=== PATIENT | female | born 1950 | race Caucasian/White ===

== ENCOUNTER → 2022-08-23 08:59 | Outpatient (BNVA) | payer MEDICARE, SELFPAY | PROVIDERS: PCP Family Medicine; Referring Provider Family Medicine; Visit Provider Student in an Organized Health Care Education/Training Program | DX: G56.01 Carpal tunnel syndrome, right upper limb (principal) | CPT/HCPCS: 99213 ==

== ENCOUNTER 2022-09-14 14:54 | Outpatient (REF) | payer MEDICARE, SELFPAY ==
[2022-09-14 16:16] LABS: Abs Immature Grans 0.03 10^3/uL (0.0-0.06); Absolute Basophil Count 0.05 10^3/uL (0.0-0.2); Absolute Eosinophil Count 0.24 10^3/uL (0.0-0.7); Absolute Lymphocyte Count 2.45 10^3/uL (1.2-3.4); Absolute Monocyte Count 0.74 10^3/uL (0.1-0.8); Absolute Neutrophil Count 6.34 10^3/uL (1.2-6.7); Basophils % 0.5; Eosinophils % 2.4; HCT 42.1 % (36.0-46.0); HGB 12.7 g/dL (11.2-15.7); Immature Grans % 0.3; Lymphocytes % 24.9; MCH 29.6 pg (27.0-33.0); MCHC 30.2 % (32.0-36.0); MCV 98 fL (80-95); MPV 10.6 fL (8.0-11.0); Monocytes % 7.5; Neutrophils % 64.4; Platelet Count 255 10^3/uL (130-400); RBC 4.29 10^6/uL (3.93-5.22); RDW 14.3 % (11.7-14.6); RDW-SD 51.1 fL; WBC 9.85 10^3/uL (4.4-10.8)
[2022-09-14 16:38] LABS: Hemoglobin A1C 5.4 % (<5.7)
[2022-09-14 16:42] LABS: ALT 36 U/L (14-59); AST 28 U/L (15-37); Albumin 3.6 g/dL (3.4-5.0); Alkaline Phosphatase 89 U/L (46-116); Anion Gap 13.2 mmol/L (3-11); BUN 23 mg/dL (7-18); Bilirubin, Total 0.3 mg/dL (0.2-1.0); CO2 25.8 mmol/L (21.0-32.0); CREATININE 1.4 mg/dL (0.55-1.02); Calcium 9.2 mg/dL (8.5-10.1); Chloride 106 mmol/L (98-107); Estimated GFR 40.22 (mL/min/1.73m2); Glucose 66 mg/dL (74-106); Potassium 4.5 mmol/L (3.5-5.1); Sodium 145 mmol/L (136-145)
== END 2022-09-14 14:55 | disposition home or self-care (01) ==
LOC: NCHCN 14:54
PROVIDERS: PCP Family Medicine; Visit Provider Registered Nurse
DX: F31.12 Bipolar disorder, current episode manic without psychotic features, moderate (principal); Z79.899 Other long term (current) drug therapy
CPT/HCPCS: 80053; 83036; 84443; 85025

== ENCOUNTER 2022-09-21 15:14 | Outpatient (REF) | payer MEDICARE, SELFPAY ==
[2022-09-21 18:51] LABS: ALT 36 U/L (14-59); AST 33 U/L (15-37); Albumin 3.8 g/dL (3.4-5.0); Alkaline Phosphatase 86 U/L (46-116); Anion Gap 7.1 mmol/L (3-11); BUN 22 mg/dL (7-18); Bilirubin, Total 0.4 mg/dL (0.2-1.0); CO2 29.9 mmol/L (21.0-32.0); CREATININE 1.3 mg/dL (0.55-1.02); Calcium 9.6 mg/dL (8.5-10.1); Chloride 104 mmol/L (98-107); Estimated GFR 43.69 (mL/min/1.73m2); Glucose 96 mg/dL (74-106); Potassium 4.1 mmol/L (3.5-5.1); Sodium 141 mmol/L (136-145); Total Protein 7.3 g/dL (6.4-8.2)
== END 2022-09-21 15:15 | disposition home or self-care (01) ==
LOC: NCHCN 15:14
PROVIDERS: PCP Family Medicine; Visit Provider Registered Nurse
DX: N18.31 Chronic kidney disease, stage 3a (principal)
CPT/HCPCS: 80053

== ENCOUNTER 2022-10-03 01:18 | Outpatient (CLI) | payer MEDICARE, SELFPAY ==
--- NOTE | 2022-10-03 17:45 | DI.MAMMO_ITS ---
Exam(s) MAMMO SCREENING EXAM: MAMMO SCREENING CLINICAL HISTORY: SCREENING MAMMO, [facility] Z00.00 TECHNIQUE: Bilateral full field digital CC and MLO mammographic images were obtained with 3D tomosyn thesis and utilizing computer aided detection (CAD). COMPARISON: Available for comparison. FINDINGS: Masses/Architectural Distortion: There are well-circumscribed bilateral breast nodules. No suspiciou s masses or areas of architectural distortion are seen. Microcalcifications: No suspicious pleomorphic-type are seen. Skin Thickening/Nipple Retraction: None. IMPRESSION: 1. No significant interval change with no specific features of malignancy noted. 2. Unless there is more urgent need, screening mammography is recommended, as per [employer] guidelines. BI-RADS Category 2 - Benign Findings Breast Density - Category B - Scattered areas of fibroglandular density Breast density category C or D implies that the patient has dense breast tissue. Dense breast tissue is very common and is not abnormal but dense breast tissue can make it harder to find cancer on a ma mmogram. Also, dense breast tissue may increase their breast cancer risk. This information about the result of the mammogram report was provided to the patient to raise their awareness. Use this report when you speak with the patient about their risks for breast cancer, which includes their family hist ory. At that time, you may recommend for more screening tests (Ultrasound or MRI) as they might be us eful based on their risk. A negative radiographic report should not delay biopsy if a dominant or clinically suspicious mass is present. Up to ten percent of cancers are not identified on mammography. A negative report may reinforce clinical impression. Adenosis and dense breasts may obscure an underlying neoplasm. False positive reports average 6 to 10%. Patient will receive a letter notifying them of these results.
== END 2022-10-03 01:38 ==
PROVIDERS: PCP Family Medicine; Visit Provider Family Medicine
DX: Z12.31 Encounter for screening mammogram for malignant neoplasm of breast (principal)
CPT/HCPCS: 77063; 77067

== ENCOUNTER 2022-10-19 17:47 | Outpatient (REF) | payer MEDICARE, SELFPAY ==
[2022-10-19 17:23] LABS: Lithium 0.6 mmol/l (0.6-1.2)
[2022-10-19 18:35] LABS: ALT 34 U/L (14-59); AST 30 U/L (15-37); Albumin 3.4 g/dL (3.4-5.0); Alkaline Phosphatase 97 U/L (46-116); Anion Gap 6.5 mmol/L (3-11); BUN 25 mg/dL (7-18); Bilirubin, Total 0.6 mg/dL (0.2-1.0); CO2 28.5 mmol/L (21.0-32.0); CREATININE 1.4 mg/dL (0.55-1.02); Calcium 9.2 mg/dL (8.5-10.1); Chloride 104 mmol/L (98-107); Estimated GFR 39.97 (mL/min/1.73m2); Glucose 137 mg/dL (74-106); Potassium 4.3 mmol/L (3.5-5.1); Sodium 139 mmol/L (136-145); Total Protein 7.7 g/dL (6.4-8.2)
== END 2022-10-19 17:48 | disposition home or self-care (01) ==
LOC: NCHCN 17:47
PROVIDERS: PCP Family Medicine; Visit Provider Registered Nurse
DX: F31.89 Other bipolar disorder (principal); N18.30 Chronic kidney disease, stage 3 unspecified; Z79.899 Other long term (current) drug therapy; Z51.81 Encounter for therapeutic drug level monitoring
CPT/HCPCS: 80053; 80178

== ENCOUNTER 2022-11-08 11:02 | Outpatient (REF) | payer MEDICARE, SELFPAY ==
[2022-11-09 11:36] LABS: ALT 23 U/L (14-59); AST 18 U/L (15-37); Albumin 3.5 g/dL (3.4-5.0); Alkaline Phosphatase 92 U/L (46-116); Anion Gap 8.3 mmol/L (3-11); BUN 15 mg/dL (7-18); CO2 30.7 mmol/L (21.0-32.0); CREATININE 1.3 mg/dL (0.55-1.02); Calcium 9.4 mg/dL (8.5-10.1); Chloride 104 mmol/L (98-107); Estimated GFR 43.69 (mL/min/1.73m2); Glucose 100 mg/dL (74-106); Sodium 143 mmol/L (136-145); Total Protein 7.3 g/dL (6.4-8.2)
[2022-11-09 19:49] LABS: Lithium (UVM) 0.9 mmol/L (See Note)
== END 2022-11-08 11:03 | disposition home or self-care (01) ==
LOC: NCHCN 11:02
PROVIDERS: PCP Family Medicine; Visit Provider Registered Nurse
DX: Z51.81 Encounter for therapeutic drug level monitoring (principal); Z79.899 Other long term (current) drug therapy; F31.9 Bipolar disorder, unspecified; N18.31 Chronic kidney disease, stage 3a
CPT/HCPCS: 80053; 80178

== ENCOUNTER 2022-11-23 12:27 | Inpatient (IN) | payer MEDICARE, SELFPAY ==
[2022-11-23] VITALS (8 sets, daily range): BP systolic 138–170; BP diastolic 57–89; PULSE 85–98; RESP 16–20; TEMP 36.3–37.1; O2SAT 95–97
[2022-11-23 13:00] LABS: Bilirubin Negative (Negative); Blood Negative (Negative); Clarity Sl Cloudy (Clear); Glucose Negative (Negative); Ketones Negative (Negative); Leukocyte Esterase Trace (Negative); Nitrite Negative (Negative); Specific Gravity 1.025 (1.005-1.025); Urobilinogen 0.2 mg/dL (Up to 0.2)
[2022-11-23 13:08] LABS: Epithelial Cells Many HPF (Negative)
[2022-11-23 13:09] LABS: Bacteria Few HPF (Negative); C & S Indicated? No/Sq. Contamination; Casts Negative LPF (Negative); Crystals Negative HPF (Negative); Mucus Negative (Negative)
--- NOTE | 2022-11-23 13:15 | RT.EKG_ITS ---
APPROVED REPORT Exam: Resting ECG Reason for Exam: tired Patient Location: E HR:86 bpm ECG Measurements Heart Rate 86 AXIS IA 204 P 42 QRSd 104 QRS -24 QT 434 T 74 QTc 520 Conclusion Sinus rhythm...normal P axis, V-rate 60- 99 Left ventricular hypertrophy...multiple voltage criteria Prolonged QT interval...QTc >500mS
[2022-11-23 13:51] LABS: Abs Immature Grans 0.07 10^3/uL (0.0-0.06); Absolute Basophil Count 0.04 10^3/uL (0.0-0.2); Absolute Eosinophil Count 0.29 10^3/uL (0.0-0.7); Absolute Lymphocyte Count 1.65 10^3/uL (1.2-3.4); Basophils % 0.3; Eosinophils % 2.1; HCT 40.9 % (36.0-46.0); HGB 13.5 g/dL (11.2-15.7); Immature Grans % 0.5; MCH 30.3 pg (27.0-33.0); MCV 92 fL (80-95); MPV 9.1 fL (8.0-11.0); Monocytes % 5.2; Neutrophils % 79.9; Platelet Count 284 10^3/uL (130-400); RBC 4.45 10^6/uL (3.93-5.22); RDW 12.8 % (11.7-14.6); RDW-SD 43.3 fL; WBC 13.74 10^3/uL (4.4-10.8)
[2022-11-23 13:53] LABS: Absolute Monocyte Count 0.71 10^3/uL (0.1-0.8); Absolute Neutrophil Count 10.98 10^3/uL (1.2-6.7)
[2022-11-23 14:12] LABS: Lithium 1.7 mmol/l (0.6-1.2)
[2022-11-23 14:20] LABS: ALT 28 U/L (14-59); AST 16 U/L (15-37); Albumin 3.5 g/dL (3.4-5.0); Alkaline Phosphatase 85 U/L (46-116); Anion Gap 5.2 mmol/L (3-11); BUN 18 mg/dL (7-18); Bilirubin, Total 0.6 mg/dL (0.2-1.0); CO2 26.8 mmol/L (21.0-32.0); CREATININE 1.3 mg/dL (0.55-1.02); Calcium 9.6 mg/dL (8.5-10.1); Chloride 104 mmol/L (98-107); Estimated GFR 43.69 (mL/min/1.73m2); Glucose 110 mg/dL (74-106); Potassium 3.8 mmol/L (3.5-5.1); Sodium 136 mmol/L (136-145); Total Protein 7.7 g/dL (6.4-8.2)
--- NOTE | 2022-11-23 14:43 | NUR.NOTE ---
Nursing Note: Pt not suicidal/homicidal, no safety room required d/t needs monitored room for medical reasons, monitored visually from nurses station, not 1:1 per provider, no CPSO ordered. Pt calm and appropriate, will cont. to monitor.
--- NOTE | 2022-11-23 14:46 | NUR.NOTE ---
Nursing Note: Care assumed @ 1445, report recieved from Massimo Birch RN and Betsy Santillan RN Charge Nurse. Pt is not 1:1, CPSO, safety room required per report recieved.
[2022-11-23] MEDS: Normal Saline 1,000 ML 1000 ML IV (14:50)
--- NOTE | 2022-11-23 15:10 | ED.GENADUL_ITS ---
Discharge Plan Disposition Patient Disposition: Home Discharge Details Clinical Impression: [place] toxicity, CKD (chronic kidney disease), stage III, History of depression Primary Care Provider: Selwyn Damon ED Provider: Fiona Gtz Discharge Data Discharge Date/Time-TO BE ENTERED AT DEPARTURE: 11/23/22 16:58 Medical Decision Making 72-year-old female is fully alert and oriented, mild hypertension but otherwise stable Secondary to chronic kidney disease and recent increase in lithium, lithium level was checked, found to be 1.7, concern for lithium toxicity, patient adamantly denies any attempts to harm self or overdose on medications Aside from being quite fatigued patient has no other symptoms consistent with lithium toxicity, case discussed with poison control, recommendation for 1 to 2 L of NS, telemetry monitoring, repeat BMP and lithium level every 4 hours and to ensure adequate intake and output Patient also is quite depressed, likely need placement for depression and psychiatric mood stabilization intervention QTc was 520 on EKG, will place on telemetry monitoring Urinalysis not show evidence of acute abnormality Case discussed with Dr. Lara Stanford, admitting hospitalist who accepts patient to her care Full CODE STATUS for admission purposes Fully alert and oriented and stable throughout this encounter Medical Records Medical records reviewed: Yes I reviewed the patient's medical records. Lab Data Lab results reviewed: Yes I reviewed the patient's lab results. HPI General Date/Time Provider Initiated Documentation: 11/23/22 13:10 . HPI Narrative: This 72-year-old female presents with report of feeling sluggish with worsening depression, sent to the emergency department for evaluation. Denies any chest pain or shortness of breath. States she feels very tired. Denies any nausea, vomiting, or diarrhea today but did have 1 episode of diarrhea last week. Denies fever or chills. Denies any dizziness, speech, or sensation change. Denies any attempts to harm self. Took her lithium dose last evening, but has not taken her medications today. Sent to the emergency department for likely placement secondary to difficulty controlling depression and bipolar in the presence of multiple medical comorbidities Related Data Home Medications Medication Instructions Recorded Confirmed carvedilol 3.125 mg tablet 3.125 mg PO BID 04/24/22 11/23/22 losartan 50 mg tablet 50 mg PO DAILY 04/24/22 11/23/22 mecobalamin (vitamin B12) 1,000 1,000 mcg PO DAILY 04/24/22 11/23/22 mcg chewable tablet (B12 Active) acetaminophen 500 mg tablet 500 mg PO DAILY 06/06/22 11/23/22 (Tylenol Extra Strength) lithium carbonate 300 mg capsule 900 mg PO QHS 11/23/22 11/23/22 lorazepam 0.5 mg tablet mg 11/24/22 11/24/22 ziprasidone HCl 60 mg capsule 60 mg PO BID 11/24/22 11/24/22 Allergies Allergy/AdvReac Type Severity Reaction Status Date / Time No Known Allergies Allergy Verified 08/23/22 09:01 General Stated Complaint: PsychEval DEISY: 2 PFSH All Active Problems (Updated 11/23/22 @ 15:29 by BELINDA Gonzalez) Hypertension (Chronic) History of depression (Acute) CKD (chronic kidney disease), stage III (Acute) [place] toxicity (Acute) Right carpal tunnel syndrome (Acute) Medical History Arthritis Chronic knee pain CKD (chronic kidney disease), stage III History of depression History of uterine cancer Hypertension Peripheral neuropathy Right wrist pain Social History Smoking/Tobacco Use Status: Never Smoking risk assessment performed?: Yes Drug use: Never Substance use type: does not use Do you feel safe at home: Yes Do you feel safe in your relationship?: Yes Exam Const General: cooperative, comfortable and no acute distress HENMT Other: moist mucous membranes Eyes Pupils: PERRL Resp Effort & Inspection: normal respiratory effort Auscultation: clear to auscultation bilaterally Cardio Rate: regular rate Rhythm: regular rhythm GI Inspection: normal to inspection Skin General skin exam: no rashes or lesions noted Neuro General: patient alert and patient oriented x3 Speech: speech normal Gait: normal gait Motor: no pronator drift Sensory Exam: no sensory deficits noted Psych Appearance: well kempt Affect: other (flat) Attitude: cooperative Thought Process: normal Thought Content: normal and suicidality Course Vital Signs Vital signs: Vital Signs Temperature 36.6 C 11/23/22 12:56 Pulse 88 11/23/22 12:56 Respiratory Rate 16 11/23/22 12:56 Blood Pressure 168/89 H 11/23/22 12:56 Temperature 36.6 C 11/23/22 12:56 Temperature Source Oral 11/23/22 12:56 Pulse 88 11/23/22 12:56 Respiratory Rate 16 11/23/22 12:56 Blood Pressure 168/89 H 11/23/22 12:56 Blood Pressure Position Sitting 11/23/22 12:56 Oxygen Delivery Method Room Air 11/23/22 12:56 Oxygen Flow Rate 0 11/23/22 12:56 Lab/Test Results Lab/Test Results: Laboratory Tests Range/Units 11/23/22 11/23/22 11/23/22 12:50 13:40 13:40 WBC (4.4-10.8) 10^3/uL 13.74 H RBC (3.93-5.22) 10^6/uL 4.45 Hgb (11.2-15.7) g/dL 13.5 Hct (36.0-46.0) % 40.9 MCV (80-95) fL 92 MCH (27.0-33.0) pg 30.3 MCHC (32.0-36.0) % 33.0 RDW (11.7-14.6) % 12.8 Plt Count (130-400) 10^3/uL 284 MPV (8.0-11.0) fL 9.1 Immature Gran % 0.5 Neutrophils % 79.9 Lymphocytes % 12.0 Monocytes % 5.2 Eosinophils % 2.1 Basophils % 0.3 Nucleated RBC % (0.0-0.3) % 0.0 Absolute Neutrophils (1.2-6.7) 10^3/uL 10.98 H Absolute Lymphocytes (1.2-3.4) 10^3/uL 1.65 Absolute Monocytes (0.1-0.8) 10^3/uL 0.71 Absolute Eosinophils (0.0-0.7) 10^3/uL 0.29 Absolute Basophils (0.0-0.2) 10^3/uL 0.04 Sodium (136-145) mmol/L 136 Potassium (3.5-5.1) mmol/L 3.8 Chloride (98-107) mmol/L 104 Carbon Dioxide (21.0-32.0) mmol/L 26.8 Anion Gap (3-11) mmol/L 5.2 BUN (7-18) mg/dL 18 Creatinine (0.55-1.02) mg/dL 1.3 H Est GFR (CKD-EPI 2020) (mL/min/1.73m2) 43.69 Glucose (74-106) mg/dL 110 H Calcium (8.5-10.1) mg/dL 9.6 Magnesium (1.8-2.4) mg/dL 2.0 Total Bilirubin (0.2-1.0) mg/dL 0.6 AST (15-37) U/L 16 ALT (14-59) U/L 28 Alkaline Phosphatase (46-116) U/L 85 Total Protein (6.4-8.2) g/dL 7.7 Albumin (3.4-5.0) g/dL 3.5 TSH (0.36-3.74) uIU/mL 2.60 Urine Color (Yellow) Yellow Urine Clarity (Clear) Sl Cloudy Urine pH (5-8) 6.0 Ur Specific [place] (1.005-1.025) 1.025 Urine Protein (Negative) mg/dL 30 H Urine Ketones (Negative) mg/dL Negative Urine Blood (Negative) Negative Urine Nitrite (Negative) Negative Urine Bilirubin (Negative) Negative Urine Urobilinogen (Up to 0.2) mg/dL 0.2 Ur Leukocyte Esterase (Negative) Trace H Urine RBC (0-2) HPF 3-5 H Urine WBC (0-5) HPF 5-10 Ur Epithelial Cells (Negative) HPF Many Urine Crystals (Negative) HPF Negative Urine Bacteria (Negative) HPF Few Urine Casts (Negative) LPF Negative Urine Mucus (Negative) Negative Ur Culture Indicated? No/Sq. Contamination Urine Glucose (Negative) mg/dL Negative [place] (0.6-1.2) mmol/l Range/Units 11/23/22 11/23/22 13:40 13:40 WBC (4.4-10.8) 10^3/uL RBC (3.93-5.22) 10^6/uL Hgb (11.2-15.7) g/dL Hct (36.0-46.0) % MCV (80-95) fL MCH (27.0-33.0) pg MCHC (32.0-36.0) % RDW (11.7-14.6) % Plt Count (130-400) 10^3/uL MPV (8.0-11.0) fL Immature Gran % Neutrophils % Lymphocytes % Monocytes % Eosinophils % Basophils % Nucleated RBC % (0.0-0.3) % Absolute Neutrophils (1.2-6.7) 10^3/uL Absolute Lymphocytes (1.2-3.4) 10^3/uL Absolute Monocytes (0.1-0.8) 10^3/uL Absolute Eosinophils (0.0-0.7) 10^3/uL Absolute Basophils (0.0-0.2) 10^3/uL Sodium (136-145) mmol/L Potassium (3.5-5.1) mmol/L Chloride (98-107) mmol/L Carbon Dioxide (21.0-32.0) mmol/L Anion Gap (3-11) mmol/L BUN (7-18) mg/dL Creatinine (0.55-1.02) mg/dL Est GFR (CKD-EPI 2020) (mL/min/1.73m2) Glucose (74-106) mg/dL Calcium (8.5-10.1) mg/dL Magnesium (1.8-2.4) mg/dL Cancelled Total Bilirubin (0.2-1.0) mg/dL AST (15-37) U/L ALT (14-59) U/L Alkaline Phosphatase (46-116) U/L Total Protein (6.4-8.2) g/dL Albumin (3.4-5.0) g/dL TSH (0.36-3.74) uIU/mL Urine Color (Yellow) Urine Clarity (Clear) Urine pH (5-8) Ur Specific [place] (1.005-1.025) Urine Protein (Negative) mg/dL Urine Ketones (Negative) mg/dL Urine Blood (Negative) Urine Nitrite (Negative) Urine Bilirubin (Negative) Urine Urobilinogen (Up to 0.2) mg/dL Ur Leukocyte Esterase (Negative) Urine RBC (0-2) HPF Urine WBC (0-5) HPF Ur Epithelial Cells (Negative) HPF Urine Crystals (Negative) HPF Urine Bacteria (Negative) HPF Urine Casts (Negative) LPF Urine Mucus (Negative) Ur Culture Indicated? Urine Glucose (Negative) mg/dL [place] (0.6-1.2) mmol/l 1.7 H
--- NOTE | 2022-11-23 15:12 | W.PM.HP.N ---
Date of service: 11/23/22 Time of Service: 15:12 Assessment and Plan Assessment and plan (1) [place] toxicity: Status: Acute Assessment and plan: admit to med/surg aggressive fluid hydration, IV at NS 250 cc/hr poison control called and advised recheck kidney, electrolytes and lithium in 4 hours, continue close monitoring until normalized, next draw 1800. hold lithium (2) History of depression: Status: Acute Assessment and plan: unstable, continue antidepressants (med rec consultation with [facility] as med list appears with errors based on refill history). lithium on hold pending admission to [facility] for inpatient med stabilization. mental health will be consulted after she is medically stabilized. Case management will also be following for discharge planning. (3) CKD (chronic kidney disease), stage III: Status: Acute Assessment and plan: baseline creatinine 1.3, stable now but will need close monitoring and is receiving aggressive IV hydration monitor I&O closely, daily weights avoid nephrotoxic drugs, losartan on hold for now. (4) Hypertension: Status: Chronic Assessment and plan: monitor blood pressure losartan on hold while lithium clears in setting of baseline CKD. discussed with Dr Stanford History of Present Illness History of Present Illness Chief Complaint: lithum toxicity Narrative: This is a 72-year-old female patient with a past medical history of depression has been having outpatient medication adjustments for major depression. [place] doses have been titrated and today she was found to be toxic with a lithium level of 1.7. She was given a liter of lactated Ringer's in the emergency department Poison control was notified and recommended observation with repeat of kidney function electrolytes and lithium level in 4 hours. Medically she states she has been stable she has had no fever no chills no chest pain shortness of breath abdominal pain states she has been eating and drinking states she still continues to drive and is independent with her care. She reports that she lives with her sister here locally she has 2 children that live in the [place] area. Outpatient team has been trying to stabilize her psychiatrically and referrals have been placed to [facility] in [facility] and acceptance has been pending bed availability. Review of Systems All systems reviewed & are unremarkable except as noted in HPI and below PFSH All Active Problems (Updated 11/23/22 @ 15:29 by BELINDA Gonzalez) Hypertension (Chronic) History of depression (Acute) CKD (chronic kidney disease), stage III (Acute) [place] toxicity (Acute) Right carpal tunnel syndrome (Acute) Medical History Arthritis Chronic knee pain CKD (chronic kidney disease), stage III History of depression History of uterine cancer Hypertension Peripheral neuropathy Right wrist pain Social History Smoking/Tobacco Use Status: Never Smoking risk assessment performed?: Yes Drug use: Never Substance use type: does not use Do you feel safe at home: Yes Do you feel safe in your relationship?: Yes Meds Allergies and Home Medications Allergies Allergy/AdvReac Type Severity Reaction Status Date / Time No Known Allergies Allergy Verified 08/23/22 09:01 Home Medications Medication Instructions Recorded Confirmed Type carvedilol 3.125 mg tablet 3.125 mg PO BID 04/24/22 11/23/22 History cholecalciferol (vitamin D3) 25 5,000 unit PO DAILY 04/24/22 11/23/22 History mcg (1,000 unit) capsule losartan 50 mg tablet 50 mg PO DAILY 04/24/22 11/23/22 History mecobalamin (vitamin B12) 1,000 1,000 mcg PO DAILY 04/24/22 11/23/22 History mcg chewable tablet (B12 Active) acetaminophen 500 mg tablet 500 - 1,000 mg PO DAILY 06/06/22 08/23/22 History (Tylenol Extra Strength) aripiprazole 10 mg tablet 10 mg PO DAILY 06/06/22 08/23/22 History sertraline 100 mg tablet 100 mg PO DAILY 06/06/22 08/23/22 History lurasidone 20 mg tablet ([place]) 40 mg PO DAILY 08/23/22 08/23/22 History calcium 500 mg tablet 1,250 mg PO DAILY 11/23/22 11/23/22 History lithium carbonate 300 mg capsule 300 mg PO QHS 11/23/22 11/23/22 History lorazepam 0.5 mg tablet 0.5 mg PO DAILY 11/23/22 11/23/22 History ziprasidone HCl 60 mg capsule 60 mg PO BID 11/23/22 11/23/22 History Exam Const General: cooperative, comfortable and no acute distress Nutritional Appearance: average body habitus Orientation: alert, awake and oriented x3 HENMT Head: normal to inspection, normocephalic and atraumatic Mouth: oral mucosae normal Neck Neck: normal visual inspection and full ROM Chest Chest: normal inspection of the chest Resp Effort & Inspection: normal respiratory effort Auscultation: clear to auscultation bilaterally Cardio Rate: regular rate Rhythm: regular rhythm GI Inspection: normal to inspection Palpation: soft Skin General skin exam: no rashes or lesions noted Neuro General: patient alert, patient awake and patient oriented x3 Cognition: normal cognition Speech: speech normal Motor: muscle tone normal throughout Sensory Exam: no sensory deficits noted Extrem General: normal to inspection and full ROM Results Labs 11/23/22 13:40 11/23/22 13:40 Labs: Laboratory Results - last 24 hr 11/23/22 11/23/22 11/23/22 12:50 13:40 13:40 WBC 13.74 H RBC 4.45 Hgb 13.5 Hct 40.9 MCV 92 MCH 30.3 MCHC 33.0 RDW 12.8 Plt Count 284 MPV 9.1 Immature Gran % 0.5 Neutrophils % 79.9 Lymphocytes % 12.0 Monocytes % 5.2 Eosinophils % 2.1 Basophils % 0.3 Nucleated RBC % 0.0 Absolute Neutrophils 10.98 H Absolute Lymphocytes 1.65 Absolute Monocytes 0.71 Absolute Eosinophils 0.29 Absolute Basophils 0.04 Sodium 136 Potassium 3.8 Chloride 104 Carbon Dioxide 26.8 Anion Gap 5.2 BUN 18 Creatinine 1.3 H Est GFR (CKD-EPI 2020) 43.69 Glucose 110 H Calcium 9.6 Magnesium 2.0 Total Bilirubin 0.6 AST 16 ALT 28 Alkaline Phosphatase 85 Total Protein 7.7 Albumin 3.5 TSH 2.60 Urine Color Yellow Urine Clarity Sl Cloudy Urine pH 6.0 Ur Specific [place] 1.025 Urine Protein 30 H Urine Ketones Negative Urine Blood Negative Urine Nitrite Negative Urine Bilirubin Negative Urine Urobilinogen 0.2 Ur Leukocyte Esterase Trace H Urine RBC 3-5 H Urine WBC 5-10 Ur Epithelial Cells Many Urine Crystals Negative Urine Bacteria Few Urine Casts Negative Urine Mucus Negative Ur Culture Indicated? No/Sq. Contamination Urine Glucose Negative [place] 11/23/22 11/23/22 13:40 13:40 WBC RBC Hgb Hct MCV MCH MCHC RDW Plt Count MPV Immature Gran % Neutrophils % Lymphocytes % Monocytes % Eosinophils % Basophils % Nucleated RBC % Absolute Neutrophils Absolute Lymphocytes Absolute Monocytes Absolute Eosinophils Absolute Basophils Sodium Potassium Chloride Carbon Dioxide Anion Gap BUN Creatinine Est GFR (CKD-EPI 2020) Glucose Calcium Magnesium Cancelled Total Bilirubin AST ALT Alkaline Phosphatase Total Protein Albumin TSH Urine Color Urine Clarity Urine pH Ur Specific [place] Urine Protein Urine Ketones Urine Blood Urine Nitrite Urine Bilirubin Urine Urobilinogen Ur Leukocyte Esterase Urine RBC Urine WBC Ur Epithelial Cells Urine Crystals Urine Bacteria Urine Casts Urine Mucus Ur Culture Indicated? Urine Glucose [place] 1.7 H Last Vital Signs Temp 36.6 C 11/23/22 12:56 Pulse 88 11/23/22 12:56 Resp 16 11/23/22 12:56 BP 168/89 H 11/23/22 12:56 Time Spent Time spent with Patient: 40-54 minutes Time was spent: preparing to see the patient(eg.review tests), obtaining and/or reviewing separately otained hiistory, ordering medications,tests, procedures and indepentently interpreting results
[2022-11-23 16:06] LABS: Source Nasal/Nares
[2022-11-23 16:48] LABS: COVID-19 PCR Negative (Negative)
[2022-11-23] MEDS: Normal Saline 1,000 ML 250 ML IV ×2 (17:30→21:40)
[2022-11-23] MEDS: Normal Saline Flush 10 ML SYR ×2 (17:30→21:45)
[2022-11-23 18:22] LABS: Anion Gap 4.7 mmol/L (3-11); BUN 18 mg/dL (7-18); CO2 26.3 mmol/L (21.0-32.0); CREATININE 1.4 mg/dL (0.55-1.02); Calcium 8.8 mg/dL (8.5-10.1); Chloride 108 mmol/L (98-107); Estimated GFR 39.97 (mL/min/1.73m2); Glucose 123 mg/dL (74-106); Potassium 3.3 mmol/L (3.5-5.1); Sodium 139 mmol/L (136-145)
[2022-11-23 18:33] LABS: Lithium 1.4 mmol/l (0.6-1.2)
--- NOTE | 2022-11-23 18:49 | TELEP.MEDR_ITS ---
Date of service: 11/23/22 Time of [facility] 18:[facility] Allergies Allergies: No Known Allergies Allergy (Verified 08/23/22 09:01) Interview Person Interviewed: * Patient Quality Quality of Interview/Accuracy of Medication List: Excellent Sources Sources used to compile medication list: [place] Medication List and SureScripts Changes made to Home Medication List: ADDITIONS: * none DELETIONS: * Calcium 1,250 mg daily * Cholecalciferol 5,000 units daily * Lorazepam 0.5 mg daily * Lurasidone 40 mg daily * Sertraline 100 mg daily * Ziprasidone 60 mg BID CHANGES: * Acetaminophen 500 mg daily * [place] 900 mg nightly Additional Notes Additional Notes: * Patient states her lithium was recently increased from 600 mg nightly to 900 mg nightly last week. * Patient stats compliance with medications, last doses of home medications were this morning (11/23/22) and last night (11/22/22) for evening medications. Recommended Changes Recommended Changes(reason for recommendation): * none Attestation: The home medication list is now updated to the best of my knowledge and is ready to be reconciled by the provider. Please contact the [facility] Medication Reconciliation Pharmacist at for any questions.
--- NOTE | 2022-11-23 18:49 | TELEP.MEDREC ---
Date of service: 11/23/22 Time [facility]: 18:[facility] Allergies Allergies: No Known Allergies Allergy (Verified 08/23/22 09:01) Interview Person Interviewed: Patient Quality Quality of Interview/Accuracy of Medication List: Excellent Sources Sources used to compile medication list: [place] Medication List and SureScripts Changes made to Home Medication List: ADDITIONS: none DELETIONS: Calcium 1,250 mg daily Cholecalciferol 5,000 units daily Lorazepam 0.5 mg daily Lurasidone 40 mg daily Sertraline 100 mg daily Ziprasidone 60 mg BID CHANGES: Acetaminophen 500 mg daily [place] 900 mg nightly Additional Notes Additional Notes: Patient states her lithium was recently increased from 600 mg nightly to 900 mg nightly last week. Patient stats compliance with medications, last doses of home medications were this morning (11/23/22) and last night (11/22/22) for evening medications. Recommended Changes Recommended Changes(reason for recommendation): none Attestation: The home medication list is now updated to the best of my knowledge and is ready to be reconciled by the provider. [facility] at for any questions.
--- NOTE | 2022-11-23 20:15 | RT.EKG_ITS ---
APPROVED REPORT Exam: Resting ECG Reason for Exam: [place] toxicity/prolonged QT inverval Patient Location: I HR:84 bpm ECG Measurements Heart Rate 84 AXIS DC 230 P 52 QRSd 110 QRS -14 QT 411 T 72 QTc 486 Conclusion Sinus rhythm...normal P axis, V-rate 50- 99 Prolonged DC interval...DC >220, V-rate 50- 90 Borderline T abnormalities, anterior leads...T flat or neg, V2-V4 Borderline prolonged QT interval...QTc >485mS
[2022-11-23] MEDS: Potassium Chloride 20 MEQ TABCR 40 MEQ PO (20:41)
[2022-11-23] MEDS: Carvedilol 3.125 MG TAB PO (20:42)
[2022-11-23] MEDS: Ziprasidone 20 MG CAP 60 MG PO (21:36)
[2022-11-23 22:25] LABS: Lithium 1.3 mmol/l (0.6-1.2)
[2022-11-24] VITALS (8 sets, daily range): BP systolic 144–160; BP diastolic 72–82; PULSE 71–82; RESP 14–18; TEMP 36–36.8; O2SAT 95–97
--- NOTE | 2022-11-24 | RT.EKG_ITS ---
APPROVED REPORT Exam: Resting ECG Reason for Exam: [place] toxicity/prolonged QT interval Patient Location: I HR:80 bpm ECG Measurements Heart Rate 80 AXIS [place] 214 P 48 QRSd 106 QRS -5 QT 453 T 66 QTc 523 Conclusion Sinus rhythm...normal P axis, V-rate 50- 99 Borderline prolonged NH interval...NH >212, V-rate 50- 90 Borderline T wave abnormalities...T/QRS ratio < 1/20 or flat T Prolonged QT interval...QTc >500mS
[2022-11-24] MEDS: Acetaminophen 325 MG TAB 650 MG PO ×2 (00:33→08:54)
[2022-11-24] MEDS: Normal Saline 1,000 ML 250 ML IV ×2 (02:12→06:47)
[2022-11-24] MEDS: LORazepam 0.5 MG TAB PO ×2 (02:12→21:28)
[2022-11-24 02:14] LABS: Lithium 1.2 mmol/l (0.6-1.2)
[2022-11-24 07:02] LABS: Abs Immature Grans 0.06 10^3/uL (0.0-0.06); Absolute Lymphocyte Count 2.78 10^3/uL (1.2-3.4); Absolute Monocyte Count 0.73 10^3/uL (0.1-0.8); Absolute Neutrophil Count 8.62 10^3/uL (1.2-6.7); Basophils % 0.2; Eosinophils % 2.9; HCT 38.5 % (36.0-46.0); HGB 12.4 g/dL (11.2-15.7); Immature Grans % 0.5; Lymphocytes % 22.1; MCH 30.1 pg (27.0-33.0); MCHC 32.2 % (32.0-36.0); MCV 93 fL (80-95); MPV 10.1 fL (8.0-11.0); Monocytes % 5.8; Neutrophils % 68.5; Platelet Count 250 10^3/uL (130-400); RBC 4.12 10^6/uL (3.93-5.22); RDW 12.9 % (11.7-14.6); RDW-SD 44.6 fL; WBC 12.58 10^3/uL (4.4-10.8)
[2022-11-24 07:03] LABS: Absolute Basophil Count 0.03 10^3/uL (0.0-0.2); Absolute Eosinophil Count 0.36 10^3/uL (0.0-0.7)
[2022-11-24 07:20] LABS: Lithium 1.1 mmol/l (0.6-1.2)
[2022-11-24 07:23] LABS: Anion Gap 6.8 mmol/L (3-11); BUN 14 mg/dL (7-18); CO2 21.2 mmol/L (21.0-32.0); CREATININE 1.1 mg/dL (0.55-1.02); Calcium 8.2 mg/dL (8.5-10.1); Chloride 114 mmol/L (98-107); Estimated GFR 53.39 (mL/min/1.73m2); Glucose 90 mg/dL (74-106); Potassium 3.9 mmol/L (3.5-5.1); Sodium 142 mmol/L (136-145)
--- NOTE | 2022-11-24 08:00 | RT.EKG_ITS ---
APPROVED REPORT Exam: Resting ECG Reason for Exam: lithium toxicity Patient Location: I HR:72 bpm ECG Measurements Heart Rate 72 AXIS NM 202 P 41 QRSd 106 QRS 6 QT 462 T 82 QTc 506 Conclusion Sinus rhythm...normal P axis, V-rate 50- 99 Borderline T abnormalities, anterior leads...T flat or neg, V2-V4 Prolonged QT interval...QTc >500mS
[2022-11-24] MEDS: Ziprasidone 20 MG CAP 60 MG PO ×2 (08:36→20:06)
[2022-11-24] MEDS: Calcium Carbonate 1.25 GM TAB PO (08:36)
[2022-11-24] MEDS: Cyanocobalamin 500 MCG TAB 1000 MCG PO (08:36)
[2022-11-24] MEDS: Carvedilol 3.125 MG TAB PO ×2 (08:36→20:06)
[2022-11-24] MEDS: Cholecalciferol (Vitamin D3) 1,000 UNIT TAB 5000 UNITS PO (08:37)
[2022-11-24 11:10] LABS: Albumin 2.9 g/dL (3.4-5.0)
[2022-11-24 11:19] LABS: Lab Add On Test DONE
[2022-11-24] MEDS: Normal Saline 1,000 ML 150 ML IV (12:37)
--- NOTE | 2022-11-24 13:30 | PGE_ITS ---
Date of Service Date of service: 11/24/22 Time of Service: 13:30 Assessment and Plan Assessment and plan (1) [place] toxicity: Status: Resolved Assessment and plan: Non toxic; continue to hold [place] Pending placement at psychiatric facility for med mgt (2) History of depression: Status: Acute Assessment and plan: pending admission to [facility] for inpatient med stabilization. [facility] health was consulted [facility] Case management will also be following for discharge planning. (3) CKD (chronic kidney disease), stage III: Status: Acute Assessment and plan: Creatinine 0.9 avoid nephrotoxic drugs, losartan on hold for now. (4) Hypertension: Status: Chronic Assessment and plan: monitor blood pressure losartan on hold while lithium clears in setting of baseline CKD. discussed with Dr Stanford (5) DVT prophylaxis: Status: Acute Assessment and plan: Enoxaparin (6) Discharge planning issues: Status: Acute Assessment and plan: Plan to transfer to mental health facility for med mgt Discussed with Dr Stanford Subjective Subjective Patient reports: no new complaints, tolerating liquids well, tolerating a regular diet, voiding w/o difficulty, bowel movement and afebrile; denies flatus, diarrhea, nausea or shortness of breath Interval history since last seen: No complaints. Roopa states she would like to go somewhere to get her medication regulated for bipolar disease. Exam Const General: cooperative, comfortable and no acute distress Nutritional Appearance: average body habitus Orientation: alert, awake and oriented x3 [place] Head: normal to inspection, normocephalic and atraumatic Mouth: oral mucosae normal Neck Neck: normal visual inspection and full ROM Chest Chest: normal inspection of the chest Resp Effort & Inspection: normal respiratory effort Auscultation: clear to auscultation bilaterally Cardio Rate: regular rate Rhythm: regular rhythm GI Inspection: normal to inspection Palpation: soft Skin General skin exam: no rashes or lesions noted Neuro General: patient alert, patient awake and patient oriented x3 Cognition: normal cognition Speech: speech normal Motor: muscle tone normal throughout Sensory Exam: no sensory deficits noted Extrem General: normal to inspection and full ROM Objective Last Vital Signs Temp 36.7 C 11/24/22 11:33 Pulse 75 11/24/22 11:33 Resp 18 11/24/22 11:33 BP 160/77 H 11/24/22 11:33 Pulse Ox 95 11/24/22 11:33 Laboratory Results - last 24 hr 11/23/22 11/23/22 11/23/22 13:40 13:40 13:40 WBC 13.74 H RBC 4.45 Hgb 13.5 Hct 40.9 MCV 92 MCH 30.3 MCHC 33.0 RDW 12.8 Plt Count 284 MPV 9.1 Immature Gran % 0.5 Neutrophils % 79.9 Lymphocytes % 12.0 Monocytes % 5.2 Eosinophils % 2.1 Basophils % 0.3 Nucleated RBC % 0.0 Absolute Neutrophils 10.98 H Absolute Lymphocytes 1.65 Absolute Monocytes 0.71 Absolute Eosinophils 0.29 Absolute Basophils 0.04 Sodium 136 Potassium 3.8 Chloride 104 Carbon Dioxide 26.8 Anion Gap 5.2 BUN 18 Creatinine 1.3 H Est GFR (CKD-EPI 2020) 43.69 Glucose 110 H Calcium 9.6 Magnesium 2.0 Total Bilirubin 0.6 AST 16 ALT 28 Alkaline Phosphatase 85 Total Protein 7.7 Albumin 3.5 TSH 2.60 [place] 1.7 H COVID-19 Source SARS-CoV-2 (PCR) Add-On Test Request 11/23/22 11/23/22 11/23/22 13:40 16:01 18:00 WBC RBC Hgb Hct MCV MCH MCHC RDW Plt Count MPV Immature Gran % Neutrophils % Lymphocytes % Monocytes % Eosinophils % Basophils % Nucleated RBC % Absolute Neutrophils Absolute Lymphocytes Absolute Monocytes Absolute Eosinophils Absolute Basophils Sodium 139 Potassium 3.3 L Chloride 108 H Carbon Dioxide 26.3 Anion Gap 4.7 BUN 18 Creatinine 1.4 H Est GFR (CKD-EPI 2020) 39.97 Glucose 123 H Calcium 8.8 Magnesium Cancelled Total Bilirubin AST ALT Alkaline Phosphatase Total Protein Albumin TSH [place] COVID-19 Source Nasal/Nares SARS-CoV-2 (PCR) Negative Add-On Test Request 11/23/22 11/23/22 11/24/22 18:00 21:55 01:50 WBC RBC Hgb Hct MCV MCH MCHC RDW Plt Count MPV Immature Gran % Neutrophils % Lymphocytes % Monocytes % Eosinophils % Basophils % Nucleated RBC % Absolute Neutrophils Absolute Lymphocytes Absolute Monocytes Absolute Eosinophils Absolute Basophils Sodium Potassium Chloride Carbon Dioxide Anion Gap BUN Creatinine Est GFR (CKD-EPI 2020) Glucose Calcium Magnesium Total Bilirubin AST ALT Alkaline Phosphatase Total Protein Albumin TSH [place] 1.4 H 1.3 H 1.2 COVID-19 Source SARS-CoV-2 (PCR) Add-On Test Request 11/24/22 11/24/22 11/24/22 05:55 05:55 05:55 WBC 12.58 H RBC 4.12 Hgb 12.4 Hct 38.5 MCV 93 MCH 30.1 MCHC 32.2 RDW 12.9 Plt Count 250 MPV 10.1 Immature Gran % 0.5 Neutrophils % 68.5 Lymphocytes % 22.1 Monocytes % 5.8 Eosinophils % 2.9 Basophils % 0.2 Nucleated RBC % 0.0 Absolute Neutrophils 8.62 H Absolute Lymphocytes 2.78 Absolute Monocytes 0.73 Absolute Eosinophils 0.36 Absolute Basophils 0.03 Sodium 142 Potassium 3.9 Chloride 114 H Carbon Dioxide 21.2 Anion Gap 6.8 BUN 14 Creatinine 1.1 H Est GFR (CKD-EPI 2020) 53.39 Glucose 90 Calcium 8.2 L Magnesium Total Bilirubin AST ALT Alkaline Phosphatase Total Protein Albumin TSH [place] 1.1 COVID-19 Source SARS-CoV-2 (PCR) Add-On Test Request 11/24/22 11/24/22 05:55 07:55 WBC RBC Hgb Hct MCV MCH MCHC RDW Plt Count MPV Immature Gran % Neutrophils % Lymphocytes % Monocytes % Eosinophils % Basophils % Nucleated RBC % Absolute Neutrophils Absolute Lymphocytes Absolute Monocytes Absolute Eosinophils Absolute Basophils Sodium Potassium Chloride Carbon Dioxide Anion Gap BUN Creatinine Est GFR (CKD-EPI 2020) Glucose Calcium Magnesium Total Bilirubin AST ALT Alkaline Phosphatase Total Protein Albumin 2.9 L TSH [place] COVID-19 Source SARS-CoV-2 (PCR) Add-On Test Request DONE Time Spent with Patient Time Spent with Patient: 25-34 minutes Time was spent: preparing to see the patient(eg.review tests), ordering medications,tests, procedures, referring, communicating with other health career services officer, indepentently interpreting results, counseling the patient and care coordination
--- NOTE | 2022-11-24 14:18 | PDOC.CMIN ---
- If Service Date Differs Date of service: 11/24/22 Time of Service: 14:19 Care Management Initial Assess REASON FOR HOSPITALIZATION:: [place] Toxicity PAST MEDICAL HISTORY/PAST SURGICAL HISTORY:: Medical History . Arthritis. Chronic knee pain. CKD (chronic kidney disease), stage III. History of depression. History of uterine cancer. Hypertension. Peripheral neuropathy. Right wrist pain PREVIOUS FUNCTIONAL STATUS/SOCIAL/FAMILY SUPPORTS:: Resides in [facility] with her sister, Rachel. Independent at baseline, has been struggling for some time now with symptoms attributed to MDD including lethargy feeling sluggish duration noted as months. CURRENT FUNCTIONAL STATUS:: Denies suicidality, intentional overdose and self harm. Pleasant, with bright affect. Has patient been provided with info about the portal/API?: No Did the patient sign up for the portal?: No CODE STATUS:: Full Code INSURANCE COVERAGE / FINANCIAL ISSUES:: [employer]-faxed clinicals CURRENT HOME/COMMUNITY SERVICES/EQUIPMENT:: roller machine operator: MORENA Ortiz PRIMARY CARE PHYSICIAN:: Selwyn Damon POTENTIAL DISCHARGE NEEDS:: Support HS in securing MH placement. PATIENT/FAMILY EDUCATION NEEDS:: Review discharge instructions, discuss Ask Me Three ANTICIPATED BARRIERS TO DISCHARGE:: None identified. TRANSPORTATION:: Dependent on disposition. PLAN:: Roopa will either return home with her sister via private vehicle or transfer for psychiatric medication management. CM continues to follow.
[2022-11-24] MEDS: LORazepam 1 MG TAB PO (15:04)
[2022-11-25] MEDS: Normal Saline 1,000 ML 150 ML IV (01:56)
[2022-11-25 03:19] VITALS: BP 161/79; PULSE 72; RESP 16; TEMP 36; O2SAT 97
[2022-11-25 06:28] VITALS: BP 160/85; PULSE 73; RESP 16; TEMP 36.5; O2SAT 95
[2022-11-25 06:34] LABS: Abs Immature Grans 0.05 10^3/uL (0.0-0.06); Absolute Eosinophil Count 0.24 10^3/uL (0.0-0.7); Absolute Neutrophil Count 9.05 10^3/uL (1.2-6.7); Basophils % 0.2; HCT 33.2 % (36.0-46.0); HGB 10.9 g/dL (11.2-15.7); Immature Grans % 0.4; MCH 30.5 pg (27.0-33.0); MCHC 32.8 % (32.0-36.0); MCV 93 fL (80-95); MPV 9.4 fL (8.0-11.0); Monocytes % 6.6; Neutrophils % 74.8; Platelet Count 227 10^3/uL (130-400); RBC 3.57 10^6/uL (3.93-5.22); RDW 13.4 % (11.7-14.6); RDW-SD 45.8 fL
[2022-11-25 06:42] LABS: Absolute Basophil Count 0.02 10^3/uL (0.0-0.2); Absolute Lymphocyte Count 1.94 10^3/uL (1.2-3.4)
[2022-11-25 06:53] LABS: Anion Gap 8.3 mmol/L (3-11); BUN 8 mg/dL (7-18); CO2 21.7 mmol/L (21.0-32.0); CREATININE 0.9 mg/dL (0.55-1.02); Calcium 8.4 mg/dL (8.5-10.1); Chloride 113 mmol/L (98-107); Estimated GFR 67.92 (mL/min/1.73m2); Glucose 109 mg/dL (74-106); Magnesium 1.7 mg/dL (1.8-2.4); Potassium 3.9 mmol/L (3.5-5.1); Sodium 143 mmol/L (136-145)
[2022-11-25 07:15] LABS: Lithium 0.5 mmol/l (0.6-1.2)
[2022-11-25] MEDS: Cyanocobalamin 500 MCG TAB 1000 MCG PO (07:53)
[2022-11-25] MEDS: Ziprasidone 20 MG CAP 60 MG PO ×2 (07:53→20:34)
[2022-11-25] MEDS: Carvedilol 3.125 MG TAB PO ×2 (07:53→20:34)
[2022-11-25] MEDS: Cholecalciferol (Vitamin D3) 1,000 UNIT TAB 5000 UNITS PO (07:53)
[2022-11-25] MEDS: Calcium Carbonate 1.25 GM TAB PO (07:54)
[2022-11-25] MEDS: Acetaminophen 325 MG TAB 650 MG PO (08:19)
[2022-11-25] MEDS: Magnesium Chloride 64 MG TABCR PO ×2 (08:19→20:34)
[2022-11-25 11:07] VITALS: BP 149/76; PULSE 74; RESP 19; TEMP 37; O2SAT 96
[2022-11-25] MEDS: LORazepam 1 MG TAB PO ×2 (12:10→17:24)
[2022-11-25 15:10] VITALS: BP 143/81; PULSE 80; RESP 16; TEMP 37.1; O2SAT 97
--- NOTE | 2022-11-25 19:09 | PGE_ITS ---
Date of Service Date of service: 11/25/22 Time of Service: 11:00 Assessment and Plan Assessment and plan (1) [place] toxicity: Status: Resolved Assessment and plan: Non toxic; continue to hold [place] Pending placement at psychiatric facility for med mgt IV dc'd (2) History of depression: Status: Acute Assessment and plan: pending admission to [facility] for inpatient med stabilization. mental health was consulted [facility] Case management will also be following for discharge planning. (3) CKD (chronic kidney disease), stage III: Status: Acute Assessment and plan: Creatinine 0.9 avoid nephrotoxic drugs, losartan on hold for now. (4) Hypertension: Status: Chronic Assessment and plan: monitor blood pressure losartan on hold while lithium clears in setting of baseline CKD. (5) Hypomagnesemia: Status: Acute Assessment and plan: Mag 1.7 - repleted with oral mag; will monitor (6) DVT prophylaxis: Status: Acute Assessment and plan: Enoxaparin (7) Discharge planning issues: Status: Acute Assessment and plan: Plan to transfer to mental health facility for med mgt Discussed with Dr Stanford Subjective Subjective Patient reports: no new complaints, tolerating a regular diet, voiding w/o difficulty, bowel movement and afebrile; denies flatus, diarrhea, nausea, vomiting or shortness of breath Interval history since last seen: Continues to want to go to mental health facility for med mgt. She is pleasant, conversant. She had a shower today. She is eating well. Exam Const General: cooperative, comfortable and no acute distress Nutritional Appearance: average body habitus Orientation: alert, awake and oriented x3 [facility] Head: normal to inspection, normocephalic and atraumatic Mouth: oral mucosae normal Neck Neck: normal visual inspection and full ROM Chest Chest: normal inspection of the chest Resp Effort & Inspection: normal respiratory effort Auscultation: clear to auscultation bilaterally Cardio Rate: regular rate Rhythm: regular rhythm GI Inspection: normal to inspection Palpation: soft Skin General skin exam: no rashes or lesions noted Neuro General: patient alert, patient awake and patient oriented x3 Cognition: normal cognition Speech: speech normal Motor: muscle tone normal throughout Sensory Exam: no sensory deficits noted Extrem General: normal to inspection and full ROM Objective Last Vital Signs Temp 37.1 C 11/25/22 15:10 Pulse 80 11/25/22 15:10 Resp 16 11/25/22 15:10 BP 143/81 H 11/25/22 15:10 Pulse Ox 97 11/25/22 15:10 Laboratory Results - last 24 hr 11/25/22 11/25/22 11/25/22 06:14 06:14 06:14 WBC 12.10 H RBC 3.57 L Hgb 10.9 L Hct 33.2 L MCV 93 MCH 30.5 MCHC 32.8 RDW 13.4 Plt Count 227 MPV 9.4 Immature Gran % 0.4 Neutrophils % 74.8 Lymphocytes % 16.0 Monocytes % 6.6 Eosinophils % 2.0 Basophils % 0.2 Nucleated RBC % 0.0 Absolute Neutrophils 9.05 H Absolute Lymphocytes 1.94 Absolute Monocytes 0.80 Absolute Eosinophils 0.24 Absolute Basophils 0.02 Sodium 143 Potassium 3.9 Chloride 113 H Carbon Dioxide 21.7 Anion Gap 8.3 BUN 8 Creatinine 0.9 Est GFR (CKD-EPI 2020) 67.92 Glucose 109 H Calcium 8.4 L Magnesium 1.7 L [place] 0.5 L Time Spent with Patient Time Spent with Patient: 25-34 minutes Time was spent: preparing to see the patient(eg.review tests), ordering medications,tests, procedures, referring, communicating with other health hospice care sales consultant, indepentently interpreting results, counseling the patient and care coordination
[2022-11-25 23:39] VITALS: BP 176/81; PULSE 87; RESP 15; TEMP 36.6; O2SAT 96
[2022-11-25] MEDS: LORazepam 0.5 MG TAB PO (23:44)
[2022-11-26 06:39] LABS: Abs Immature Grans 0.05 10^3/uL (0.0-0.06); Absolute Basophil Count 0.03 10^3/uL (0.0-0.2); Absolute Eosinophil Count 0.27 10^3/uL (0.0-0.7); Absolute Lymphocyte Count 1.85 10^3/uL (1.2-3.4); Absolute Monocyte Count 0.74 10^3/uL (0.1-0.8); Absolute Neutrophil Count 8.64 10^3/uL (1.2-6.7); Basophils % 0.3; Eosinophils % 2.3; HCT 35.4 % (36.0-46.0); HGB 11.5 g/dL (11.2-15.7); Immature Grans % 0.4; MCH 29.9 pg (27.0-33.0); MCHC 32.5 % (32.0-36.0); MCV 92 fL (80-95); MPV 9.7 fL (8.0-11.0); Monocytes % 6.4; Neutrophils % 74.6; Platelet Count 232 10^3/uL (130-400); RBC 3.85 10^6/uL (3.93-5.22); RDW 13.5 % (11.7-14.6); RDW-SD 46.2 fL; WBC 11.58 10^3/uL (4.4-10.8)
[2022-11-26 06:53] LABS: Anion Gap 8.7 mmol/L (3-11); BUN 7 mg/dL (7-18); CO2 25.3 mmol/L (21.0-32.0); CREATININE 0.9 mg/dL (0.55-1.02); Calcium 8.6 mg/dL (8.5-10.1); Chloride 111 mmol/L (98-107); Estimated GFR 67.92 (mL/min/1.73m2); Glucose 104 mg/dL (74-106); Potassium 3.4 mmol/L (3.5-5.1); Sodium 145 mmol/L (136-145)
[2022-11-26 06:56] LABS: Lithium 0.3 mmol/l (0.6-1.2)
[2022-11-26 08:00] VITALS: BP 174/86; PULSE 84; RESP 18; TEMP 36.9; O2SAT 94
--- NOTE | 2022-11-26 08:24 | CMPROGNOTE_ITS ---
- If Service Date Differs Date of service: 11/26/22 Time of Service: 08:24 Care Management Progress Note [facility] screening daily; seeking placement for medication management in the setting of persistent unmanaged MDD, no SI, danger to self or others. Roopa was offered a bed at [facility] today. Covid test requested. Prior Auth submitted by Candy at [facility] through [employer] approved. [employer]: Radha ?P# ??? (call back for [facility] [phone] per Radha) ?The number of days authorized.? 3 days authorized (4.25-4.27) with a review date of 11.30. ?Auth #[id number] ?? Melinda from [facility] spoke with Roopa directly over the phone. CM reviewed plan with Roopa's sister, Rachel. JACOBO called to request EMS transport through [facility], scheduled for 0911/27/22.
--- NOTE | 2022-11-26 08:24 | PDOC.CMPRO ---
- If Service Date Differs Date of service: 11/26/22 Time of Service: 08:24 Care Management Progress Note [facility] screening daily; seeking placement for medication management in the setting of persistent unmanaged MDD, no SI, danger to self or others. Roopa was offered a bed at [facility] today. Covid test requested. Prior Auth submitted by Candy at [facility] through [employer] approved. [employer]: Radha ?P# ??? (call back for [facility] [phone] per Radha) ?The number of days authorized.? 3 days authorized (4.25-4.27) with a review date of 11.30. ?Auth #[id number] ?? Melinda from [facility] spoke with Roopa directly over the phone. CM reviewed plan with Roopa's sister, Rachel. JACOBO called to request EMS transport through [facility], scheduled for 0911/27/22.
[2022-11-26] MEDS: Cholecalciferol (Vitamin D3) 1,000 UNIT TAB 5000 UNITS PO (09:11)
[2022-11-26] MEDS: Calcium Carbonate 1.25 GM TAB PO (09:12)
[2022-11-26] MEDS: Cyanocobalamin 500 MCG TAB 1000 MCG PO (09:12)
[2022-11-26] MEDS: Carvedilol 3.125 MG TAB PO ×2 (09:12→20:24)
[2022-11-26] MEDS: Potassium Chloride 20 MEQ TABCR 40 MEQ PO (09:12)
[2022-11-26] MEDS: Ziprasidone 20 MG CAP 60 MG PO ×2 (09:12→20:24)
[2022-11-26] MEDS: Magnesium Chloride 64 MG TABCR PO ×2 (09:13→20:24)
[2022-11-26] MEDS: LORazepam 1 MG TAB PO (11:52)
--- NOTE | 2022-11-26 12:23 | MHPN_ITS ---
Date of service: 11/26/22 Time of Service: 12:23 Mental Health Emergency Note Release [facility] release signed:: Yes Reason for Visit Client is not known to [facility] ([facility]). Client presented to [facility] on 11/23/2022 expressing that her bipolar symptoms have become increasingly worse and I am manic than not and really low. Client is currently at [facility] ([facility]) awaiting inpatient hosp italization for medication reconciliation and stabilization. This clinician assesses the client face to face at [facility]. She is on the med surg floor. In the last 2 weeks has the pt presented for ES prior to today?: Unknown Client Information Client is: New Well Housed: Yes Non Suicidal Self Injury Current: No History: No Safety Risk/Harm to Self or Others Current Ideation to Harm Self or Others: No Risk: Does risk to harm exist?: No Risk: Low Risk Asssessment/Mental Status Appearance: Disheveled Attitude: Cooperative and Friendly Behavior: Unremarkable Speech: Normal Affect: Normal Mood: Depressed and Anxious Thought process: Goal directed Hallucinations: No Delusions: No Attention: Unremarkable Perception: Not impaired Orientation: Fully orientated Memory: Intact Insight: Good Judgement: Good Neurovegetative Symptoms Sleep: Increase Appetitie: No change Interests: Decrease Energy: Decrease Libido: Not applicable Substance Use: Do you use nicotine?: No Have you used substances in the last 7 days?: No Additional Issues: Assaultive/Threatening Behavior: No Medical Concerns: No Client engaged in active self harm w/weapon: No Threatening to run away: No Child reported abuse/neglect: No Voluntarily presenting for services: Yes Domestic violence is a concern: No Extreme Psychosis or extreme behavior is present: No Impression Client is a 72 year old, , female who lives with her sister in [facility]. Client is currently at [facility] awaiting inpatient hospitalization voluntarily. She shows good insight and judgement today. She reported initially being a little anxious due to not knowing where she was going or when. This clinician informed her that previous to seeing her this clinician was speaking with [facility] manager games and was informed that [facility] may have a bed tomorrow and that they are reviewing her records as we speak. The client appeared relived about this stating That is where I wanted to go anyway. She reported that she does not want to go back on [facility] again as she had too many side affects and has been depressed so bad for months that she just couldn't leave her chair. I sat there for 8 hours a day all day. Per discussion with Parole Board Member the client had not been taking care of her ADL's and per the sister's report to them this was out of character for her. Client reported a diagnosis of Bipolar and based on what she is reporting this may be accurate. Plan/Disposition Recommended Disposition: Hospitalization facilities contacted. Plan: Client accepted to [facility] for 11.27.2022.? Person reported agreement to plan: Yes Reports/communication Outcome discussed with: ED/Personnel
[2022-11-26 13:11] LABS: Source Nasal/Nares
[2022-11-26 14:12] LABS: COVID-19 PCR Negative (Negative)
[2022-11-26 15:15] VITALS: BP 187/91; PULSE 83; RESP 18; TEMP 36.4; O2SAT 96
--- NOTE | 2022-11-26 18:22 | PGE_ITS ---
Date of Service Date of service: 11/26/22 Time of Service: 18:22 Assessment and Plan Assessment and plan (1) [place] toxicity: Status: Resolved Assessment and plan: [place] discontinued Pending placement at psychiatric facility for med mgt (2) History of depression: Status: Acute Assessment and plan: pending admission to [facility] for inpatient med stabilization. mental health was consulted Case management will also be following for discharge planning. (3) CKD (chronic kidney disease), stage III: Status: Acute Assessment and plan: Creatinine 0.9 (4) Hypertension: Status: Chronic Assessment and plan: monitor blood pressure losartan restarted (5) Hypomagnesemia: Status: Acute Assessment and plan: Mag 2.0 - will monitor (6) DVT prophylaxis: Status: Acute Assessment and plan: Enoxaparin (7) Discharge planning issues: Status: Acute Assessment and plan: Plan to transfer to mental health facility for med mgt - accepted at [facility] and will be discharged 11/27/2022 ~ 10am - covid swab ordered Discussed with Dr Stanford Subjective Subjective Patient reports: no new complaints, tolerating a regular diet, voiding w/o difficulty, bowel movement and afebrile; denies diarrhea, nausea or vomiting Exam Const General: cooperative, comfortable and no acute distress Nutritional Appearance: average body habitus Orientation: alert, awake and oriented x3 [facility] Head: normal to inspection, normocephalic and atraumatic Mouth: oral mucosae normal Neck Neck: normal visual inspection and full ROM Chest Chest: normal inspection of the chest Resp Effort & Inspection: normal respiratory effort Auscultation: clear to auscultation bilaterally Cardio Rate: regular rate Rhythm: regular rhythm GI Inspection: normal to inspection Palpation: soft Skin General skin exam: no rashes or lesions noted Neuro General: patient alert, patient awake and patient oriented x3 Cognition: normal cognition Speech: speech normal Motor: muscle tone normal throughout Sensory Exam: no sensory deficits noted Extrem General: normal to inspection and full ROM Objective Last Vital Signs Temp 36.4 C L 11/26/22 15:15 Pulse 83 11/26/22 15:15 Resp 18 11/26/22 15:15 BP 187/91 H 11/26/22 15:15 Pulse Ox 96 11/26/22 15:15 Laboratory Results - last 24 hr 11/26/22 11/26/22 11/26/22 06:10 06:10 06:10 WBC 11.58 H RBC 3.85 L Hgb 11.5 Hct 35.4 L MCV 92 MCH 29.9 MCHC 32.5 RDW 13.5 Plt Count 232 MPV 9.7 Immature Gran % 0.4 Neutrophils % 74.6 Lymphocytes % 16.0 Monocytes % 6.4 Eosinophils % 2.3 Basophils % 0.3 Nucleated RBC % 0.0 Absolute Neutrophils 8.64 H Absolute Lymphocytes 1.85 Absolute Monocytes 0.74 Absolute Eosinophils 0.27 Absolute Basophils 0.03 Sodium 145 Potassium 3.4 L Chloride 111 H Carbon Dioxide 25.3 Anion Gap 8.7 BUN 7 Creatinine 0.9 Est GFR (CKD-EPI 2020) 67.92 Glucose 104 Calcium 8.6 Magnesium 2.0 [place] 0.3 L COVID-19 Source SARS-CoV-2 (PCR) 11/26/22 13:00 WBC RBC Hgb Hct MCV MCH MCHC RDW Plt Count MPV Immature Gran % Neutrophils % Lymphocytes % Monocytes % Eosinophils % Basophils % Nucleated RBC % Absolute Neutrophils Absolute Lymphocytes Absolute Monocytes Absolute Eosinophils Absolute Basophils Sodium Potassium Chloride Carbon Dioxide Anion Gap BUN Creatinine Est GFR (CKD-EPI 2020) Glucose Calcium Magnesium [place] COVID-19 Source Nasal/Nares SARS-CoV-2 (PCR) Negative Time Spent with Patient Time Spent with Patient: <25 minutes Time was spent: preparing to see the patient(eg.review tests), ordering medications,tests, procedures, referring, communicating with other health day care home mother, indepentently interpreting results, counseling the patient and care coordination
[2022-11-26] MEDS: LORazepam 0.5 MG TAB PO (21:18)
[2022-11-26 23:15] VITALS: BP 172/84; PULSE 85; RESP 18; TEMP 36.1; O2SAT 96
[2022-11-27 06:43] LABS: Abs Immature Grans 0.04 10^3/uL (0.0-0.06); Absolute Basophil Count 0.03 10^3/uL (0.0-0.2); Absolute Eosinophil Count 0.29 10^3/uL (0.0-0.7); Absolute Lymphocyte Count 2.42 10^3/uL (1.2-3.4); Absolute Monocyte Count 0.62 10^3/uL (0.1-0.8); Absolute Neutrophil Count 6.05 10^3/uL (1.2-6.7); Basophils % 0.3; Eosinophils % 3.1; HCT 36.7 % (36.0-46.0); HGB 12.2 g/dL (11.2-15.7); Immature Grans % 0.4; Lymphocytes % 25.6; MCH 30.3 pg (27.0-33.0); MCHC 33.2 % (32.0-36.0); MCV 91 fL (80-95); MPV 9.5 fL (8.0-11.0); Monocytes % 6.6; Platelet Count 255 10^3/uL (130-400); RBC 4.03 10^6/uL (3.93-5.22); RDW 13.2 % (11.7-14.6); RDW-SD 44.9 fL; WBC 9.45 10^3/uL (4.4-10.8)
[2022-11-27 06:55] LABS: Anion Gap 8.8 mmol/L (3-11); BUN 7 mg/dL (7-18); CO2 28.2 mmol/L (21.0-32.0); Calcium 8.7 mg/dL (8.5-10.1); Chloride 107 mmol/L (98-107); Estimated GFR 59.86 (mL/min/1.73m2); Glucose 106 mg/dL (74-106); Magnesium 1.9 mg/dL (1.8-2.4); Potassium 3.6 mmol/L (3.5-5.1); Sodium 144 mmol/L (136-145)
[2022-11-27] MEDS: Losartan 50 MG TAB PO (07:47)
[2022-11-27] MEDS: Magnesium Chloride 64 MG TABCR PO (07:47)
[2022-11-27] MEDS: Cyanocobalamin 500 MCG TAB 1000 MCG PO (07:47)
[2022-11-27] MEDS: Calcium Carbonate 1.25 GM TAB PO (07:47)
[2022-11-27] MEDS: Carvedilol 3.125 MG TAB PO (07:47)
[2022-11-27] MEDS: Cholecalciferol (Vitamin D3) 1,000 UNIT TAB 5000 UNITS PO (07:47)
[2022-11-27 08:03] VITALS: BP 154/84; PULSE 82; RESP 18; TEMP 36.4; O2SAT 94
[2022-11-27] MEDS: Ziprasidone 20 MG CAP 60 MG PO (08:08)
--- NOTE | 2022-11-27 08:36 | PDOC.MHPN2 ---
Date of service: 11/25/22 Time of Service: 10:28 Mental Health Emergency Note Release [facility] release signed:: Yes Reason for Visit Roopa is seeking voluntary treatment due to an increase in her depression. In the last 2 weeks has the pt presented for ES prior to today?: Unknown Client Information Client is: New Well Housed: Yes Non Suicidal Self Injury Current: No History: No Safety Risk/Harm to Self or Others Current Ideation to Harm Self or Others: No Risk: Does risk to harm exist?: No Duty to warn indicated: No Asssessment/Mental Status Appearance: Unremarkable Attitude: Cooperative and Friendly Behavior: Unremarkable Speech: Normal Affect: Cogruent with mood Mood: Depressed and Anxious Thought process: Unremarkable Hallucinations: No evidence Delusions: No evidence Attention: Unremarkable Perception: Not impaired Orientation: Fully orientated Memory: Intact Insight: Fair Judgement: Fair Neurovegetative Symptoms Sleep: Increase (Roopa reports sleeping like a log.) Appetitie: No change Interests: No change Energy: No change Libido: Not applicable Substance Use: Do you use nicotine?: No Have you used substances in the last 7 days?: No Additional Issues: Assaultive/Threatening Behavior: No Medical Concerns: No Client engaged in active self harm w/weapon: No Threatening to run away: No Child reported abuse/neglect: No Voluntarily presenting for services: Yes Domestic violence is a concern: No Extreme Psychosis or extreme behavior is present: No Impression Roopa was screened by this fiction and nonfiction prose writer and EILEEN Moore on 11/23/22 at her med providers office. Roopa was rpeorting an increase in her depression and stating she sat in her chair all day and did not move. Roopa presents in better spirits today, 11/25/22. Roopa reports good sleep, good appetite, and not doing too much since being at [facility]. Roopa denies SI/HI/NSSI and will continue to wait for treatment. Plan/Disposition Recommended Disposition: Hospitalization (no beds available ) facilities contacted. Reports/communication Outcome discussed with: ED/Personnel
--- NOTE | 2022-11-27 09:06 | W.PM.DS.N ---
Date of service: 11/27/22 Time of Service: 09:06 DS: Diagnosis Discharge Diagnosis (1) [place] toxicity: Status: Resolved (2) History of depression: Status: Acute (3) CKD (chronic kidney disease), stage III: Status: Acute (4) Hypertension: Status: Chronic (5) Hypomagnesemia: Status: Acute (6) DVT prophylaxis: Status: Acute (7) Discharge planning issues: Status: Acute Discharge Plan Disposition Patient Disposition: Psychiatric Hospital/Unit Specific Psychiatric Facility: Other Condition: Fair Discharge Details Reason For Visit: [place] Toxicity Admit Date/Time: 11/23/22 15:10 Admit Provider: Doretha Stanford Attending Provider: Doretha Stanford Primary Care Provider: Selwyn Damon [facility] Hospital Course: This is a 72-year-old female patient with a past medical history of depression who had been having outpatient medication adjustments for major depression.? [place] doses were being titrated and on the day of admission, 11/23/2022, she was found to be toxic with a lithium level of 1.7.? She was given a litre of lactated Ringer's in the emergency department. Poison control was notified and recommended observation with repeat kidney function, electrolytes and lithium level.? Medically she stated she has been stable. She denied fever, chills, chest pain, shortness of breath, or abdominal pain. Patient had been eating and drinking, she still continues to drive and is independent with her own care.?She reports that she lives with her sister here locally she has 2 children that live in the [place] area.? Outpatient team has been trying to stabilize her psychiatrically.? She was admitted for treatment of her lithium toxicity. [place] level 11/26/2022 0.3. She did have a dip in her magnesium and potassium level and both were repleted.? Magnesium is 2.0 and Potassium is.? ?Her vital signs are stable, she is medically cleared. ?She stated she did not want to go home because she knows her medications will not be managed well outpatient and would like to go somewhere short term to get her medication managed.? Referrals were made and she was accepted at [facility] in [facility] Patient is willing to go there for further inpatient treatment and medication management. Covid swab was ordered and negative.? She is discharged stable, medically cleared. Discussed with Dr Stanford. Home Meds and New Rx's Prescriptions: New calcium carbonate [Oyster Shell Calcium 500] 500 mg calcium (1,250 mg) Tablet 1.25 g PO DAILY Qty: 0 0RF cholecalciferol (vitamin D3) 25 mcg (1,000 unit) Tablet 5,000 unit PO DAILY Qty: 0 0RF melatonin 3 mg Tablet 9 mg PO HS PRN PRNQty: 0 0RF lorazepam 0.5 mg Tablet 0.5 mg PO HS Qty: 0 0RF Mag 64 64 mg Tablet,Delayed Release (Dr/Ec) 64 mg PO BID Qty: 0 0RF Continued mecobalamin (vitamin B12) [B12 Active] 1,000 mcg tablet,chewable 1,000 mcg PO DAILY carvedilol 3.125 mg tablet 3.125 mg PO BID Rx Instructions: must administer with a meal/food losartan 50 mg tablet 50 mg PO DAILY ziprasidone HCl 60 mg capsule 60 mg PO BID Patient Comments: TAKE ONE CAPSULE BY MOUTH TWICE A DAY Discontinued acetaminophen [Tylenol Extra Strength] 500 mg tablet 500 mg PO DAILY lithium carbonate 300 mg capsule 900 mg PO QHS No Action lorazepam 0.5 mg tablet Discharge Instructions Activity:: Activity as Tolerated Equipment/Supplies:: No Equipment Needed Diet:: As Tolerated Discharge Orders Discharge Orders: Discharge Order (Routine); Ordered 11/27/22 Ordered By: Sushma Barbour DS: Summary Time Spent with Patient providing and/or coordinating discharge services: Greater than 30 minutes Status at Discharge Functional status at discharge: uses cane/walker Overall status at discharge: patient is not back to baseline Mental Status: mental status grossly normal Speech and Movement: speech and movement normal Mood: congruent mood Affect: blunted Exam Const General: cooperative, comfortable and no acute distress Nutritional Appearance: average body habitus Orientation: alert, awake and oriented x3 HENMT Head: normal to inspection, normocephalic and atraumatic Mouth: oral mucosae normal Neck Neck: normal visual inspection and full ROM Chest Chest: normal inspection of the chest Resp Effort & Inspection: normal respiratory effort Auscultation: clear to auscultation bilaterally Cardio Rate: regular rate Rhythm: regular rhythm GI Inspection: normal to inspection Palpation: soft Skin General skin exam: no rashes or lesions noted Neuro General: patient alert, patient awake and patient oriented x3 Cognition: normal cognition Speech: speech normal Motor: muscle tone normal throughout Sensory Exam: no sensory deficits noted Extrem General: normal to inspection and full ROM Psych Mental Status: mental status grossly normal Speech and Movement: speech and movement normal Mood: congruent mood Affect: blunted DS: Data Vitals/I&O Vitals and I&O: Vital Signs Temperature 36.4 C L 11/27/22 08:03 Temperature Source Tympanic 11/27/22 08:03 Pulse 82 11/27/22 08:03 Pulse Rhythm Regular 11/27/22 08:00 Respiratory Rate 18 11/27/22 08:03 Respiratory Effort Normal, Non-Labored 11/27/22 08:00 Respiratory Depth Normal 11/27/22 08:00 Respiratory Pattern Normal 11/27/22 08:00 Blood Pressure 154/84 H 11/27/22 08:03 Blood Pressure Position Sitting 11/23/22 12:56 Pulse Oximetry 94 11/27/22 08:03 Oxygen Delivery Method Room Air 11/27/22 08:03 Oxygen Flow Rate 0 11/27/22 08:03 Pain Level 0 11/26/22 23:15 Comment BP called over radio 11/26/22 15:15 Intake & Output 11/26/22 11/26/22 11/27/22 11:59 23:59 11:59 Intake Total 1050 / 1410 360 / 1410 1250 / 1250 Output Total 1950 / 3150 1200 / 3150 1050 / 1050 Balance -900 / -1740 -840 / -1740 200 / 200 Intake: IV 1000 / 1000 Oral 1050 / 1410 360 / 1410 250 / 250 Output: Urine 1950 / 3150 1200 / 3150 1050 / 1050 Other: Urine Color Yellow Yellow Pale Yellow Urine Appearance Clear Clear Clear Urine Odor None Normal Normal Stool Size Small Moderate Stool Characteristics Soft Liquid Formed Brown Voiding Methods Toilet Toilet Toilet Data Completed and Pending Labs on day of discharge: Labs from last 24 hours 11/27/22 11/27/22 11/26/22 05:43 05:43 13:00 WBC 9.45 RBC 4.03 Hgb 12.2 Hct 36.7 MCV 91 MCH 30.3 MCHC 33.2 RDW 13.2 Plt Count 255 MPV 9.5 Immature Gran % 0.4 Neutrophils % 64.0 Lymphocytes % 25.6 Monocytes % 6.6 Eosinophils % 3.1 Basophils % 0.3 Nucleated RBC % 0.0 Absolute Neutrophils 6.05 Absolute Lymphocytes 2.42 Absolute Monocytes 0.62 Absolute Eosinophils 0.29 Absolute Basophils 0.03 Sodium 144 Potassium 3.6 Chloride 107 Carbon Dioxide 28.2 Anion Gap 8.8 BUN 7 Creatinine 1.0 Est GFR (CKD-EPI 2020) 59.86 Glucose 106 Calcium 8.7 Magnesium 1.9 COVID-19 Source Nasal/Nares SARS-CoV-2 (PCR) Negative PFSH All Active Problems (Updated 11/25/22 @ 19:10 by Sushma Barbour NP) Hypomagnesemia (Acute) Discharge planning issues (Acute) DVT prophylaxis (Acute) Hypertension (Chronic) History of depression (Acute) CKD (chronic kidney disease), stage III (Acute) Right carpal tunnel syndrome (Acute) Medical History Arthritis Chronic knee pain CKD (chronic kidney disease), stage III History of depression History of uterine cancer Hypertension Peripheral neuropathy Right wrist pain Social History Smoking/Tobacco Use Status: Never Smoking risk assessment performed?: Yes Drug use: Never Substance use type: does not use Do you feel safe at home: Yes Do you feel safe in your relationship?: Yes Time Spent with Patient Time Spent with Patient: 45-69 minutes Time was spent: preparing to see the patient(eg.review tests), referring, communicating with other health client care consultant, counseling the patient and care coordination
--- NOTE | 2022-11-27 10:00 | NUR.NOTE ---
[id number] Patient was p/u by transportation to be taken to [facility]. DC instructions were reviewed with pt & all questions & or concerns were addressed. All of patients belongings were sent with patient all but her phone software client architect which was lost in the ER. No PIV were in place to be removed. Nursing Note:
--- NOTE | 2022-11-27 10:09 | NUR.NOTE ---
1000 Called [facility] & spoke with RN Maria Teresa & gave report on the patient. All questions & or concerns were addressed. Called [phone] to give report. Nursing Note:
--- NOTE | 2022-11-27 10:36 | CMDISCH_ITS ---
- If Service Date Differs Date of service: 11/27/22 Time of Service: 10:36 LACE Index Scoring Tool - Questions: Length of Stay (in days): 3 Acuity (Admit via E.D.?): Yes Comorbidities: Any Tumor E.D. Visits: 1 - Answers: Total Score: 9 Risk of Readmission: Low Risk Care Management Discharge Reason for Hospitalization: [place] Toxicity Discharge Plan: Roopa will discharge to the [facility] for medication management. She will transport via [facility], coordinated by this junior copywriter. Patient/Family Education Needs: Review discharge instructions, discuss Ask Me Three. Services Needed at Discharge: Transportation ([facility])
== END 2022-11-27 09:51 | DRG 918 ==
LOC: ER 15:29 → MS 16:24
PROVIDERS: Nurse Practitioner Acute Care; Nurse Practitioner Family; Admitting Provider Internal Medicine; Emergency Provider Physician Assistant; PCP Family Medicine; Visit Provider Internal Medicine
DX: T43.591A Poisoning by other antipsychotics and neuroleptics, accidental (unintentional), initial encounter (principal); R53.83 Other fatigue; F32.9 Major depressive disorder, single episode, unspecified; N18.30 Chronic kidney disease, stage 3 unspecified; E83.42 Hypomagnesemia; E87.6 Hypokalemia; I12.9 Hypertensive chronic kidney disease with stage 1 through stage 4 chronic kidney disease, or unspecified chronic kidney disease; G62.9 Polyneuropathy, unspecified; Z85.42 Personal history of malignant neoplasm of other parts of uterus; G89.29 Other chronic pain; M25.531 Pain in right wrist
CPT/HCPCS: 36415; 80048; 80053; 87635; 93005; 99285; J1650; 80178; 81003; 81015; 82040; 83735; 84443; 85025; 93010; 99223; 99232; 99239

== ENCOUNTER 2022-12-19 12:11 | Outpatient (REF) | payer MEDICARE, SELFPAY ==
[2022-12-19 16:21] LABS: VALPROIC ACID 40.4 ug/mL
[2022-12-19 16:43] LABS: ALT 38 U/L (14-59); AST 21 U/L (15-37); Albumin 3.4 g/dL (3.4-5.0); Alkaline Phosphatase 81 U/L (46-116); Anion Gap 8.5 mmol/L (3-11); BUN 18 mg/dL (7-18); Bilirubin, Total 0.4 mg/dL (0.2-1.0); CO2 30.5 mmol/L (21.0-32.0); CREATININE 1.1 mg/dL (0.55-1.02); Chloride 106 mmol/L (98-107); Estimated GFR 53.39 (mL/min/1.73m2); Glucose 119 mg/dL (74-106); Potassium 3.9 mmol/L (3.5-5.1); Sodium 145 mmol/L (136-145); Total Protein 7.3 g/dL (6.4-8.2)
[2022-12-19 17:31] LABS: Calcium 9.4 mg/dL (8.5-10.1)
== END 2022-12-19 12:12 | disposition home or self-care (01) ==
LOC: NCHCN 12:11
PROVIDERS: PCP Family Medicine; Visit Provider Registered Nurse
DX: F31.9 Bipolar disorder, unspecified (principal); Z51.81 Encounter for therapeutic drug level monitoring; Z79.899 Other long term (current) drug therapy
CPT/HCPCS: 80053; 80164

== ENCOUNTER 2023-01-02 13:25 | Outpatient (REF) | payer MEDICARE, SELFPAY ==
[2023-01-02 15:58] LABS: ALT 41 U/L (14-59); AST 27 U/L (15-37); Albumin 3.3 g/dL (3.4-5.0); Alkaline Phosphatase 73 U/L (46-116); Anion Gap 6.8 mmol/L (3-11); BUN 17 mg/dL (7-18); Bilirubin, Total 0.4 mg/dL (0.2-1.0); CO2 31.2 mmol/L (21.0-32.0); Chloride 106 mmol/L (98-107); Estimated GFR 59.86 (mL/min/1.73m2); Glucose 110 mg/dL (74-106); Potassium 4.1 mmol/L (3.5-5.1); Sodium 144 mmol/L (136-145); Total Protein 7.2 g/dL (6.4-8.2)
[2023-01-02 16:00] LABS: VALPROIC ACID 72.1 ug/mL
== END 2023-01-02 13:26 | disposition home or self-care (01) ==
LOC: NCHCN 13:25
PROVIDERS: PCP Family Medicine; Visit Provider Registered Nurse
DX: F31.89 Other bipolar disorder (principal); Z51.81 Encounter for therapeutic drug level monitoring; Z79.899 Other long term (current) drug therapy
CPT/HCPCS: 80053; 80164

== ENCOUNTER 2023-01-29 14:39 | Outpatient (REF) | payer MEDICARE, SELFPAY ==
[2023-01-29 20:04] LABS: Iron 73 ug/dL (50-170); Total Iron Binding Capacity 311 ug/dL (250-450); Transferrin Sat 23 % (15-50)
[2023-01-29 20:07] LABS: TSH (W/Ref FT4) 1.59 uIU/mL (0.36-3.74)
== END 2023-01-29 14:40 | disposition home or self-care (01) ==
LOC: NCHCN 14:39
PROVIDERS: PCP Family Medicine; Visit Provider Family Medicine
DX: L65.9 Nonscarring hair loss, unspecified (principal); E07.9 Disorder of thyroid, unspecified
CPT/HCPCS: 83540; 83550; 84443

== ENCOUNTER 2023-05-28 16:35 | Outpatient (REF) | payer MEDICARE, SELFPAY ==
--- NOTE | 2023-05-28 16:00 | SKI_PTH ---
PATIENT: Roopa Calero LOC: [facility]#:[id number] AGE/SX: 72/F ROOM: RE05/28/[address]: Selwyn Damon : 1950 BED: DIS: 05/28/2023 SPEC #: [id number] RECD: 05/28/23 18:24 STATUS: LENNY STEARNS #: [id number] CLAUDIA: 05/28/23 16:[address]: Selwyn Damon DEPT: Surgical Specimen RECD BY: Fiona Ryder Tissues: 1 - SKIN BIOPSY(SHAVE/PUNCH) Procedures: SKIN LEVEL 4 Comments: [id number]
== END 2023-05-28 16:36 | disposition home or self-care (01) ==
LOC: NCHCN 16:35
PROVIDERS: PCP Family Medicine; Visit Provider Family Medicine
DX: C44.92 Squamous cell carcinoma of skin, unspecified (principal)
CPT/HCPCS: 88305

== ENCOUNTER 2023-07-15 15:02 | Outpatient (CLI) | payer MEDICARE, SELFPAY ==
--- NOTE | 2023-07-15 10:45 | DI.RAD_ITS ---
Exam(s) XR KNEE LT 2V AP,LAT EXAM: XR KNEE LT 2V AP,LAT INDICATION: LEFT KNEE PAIN. COMPARISON: CR XR KNEE from 09/08/2008 TECHNIQUE: 2D digital imaging was performed. Two views. FINDINGS: There has been placement of a total knee prosthesis in the interval. The alignment appears satisfact ory. No suspicious surrounding bony lucencies. Spurring at the medial aspect of the distal femoral metaphysis. Some calcification in the quadriceps tendon. Impression: No acute abnormality. DATA REPOSITORY: RADIATION DOSE DELIVERED:
--- NOTE | 2023-07-15 10:45 | DI.RAD_ITS ---
Exam(s) XR KNEE RT 2V AP,LAT EXAM: XR KNEE RT 2V AP,LAT CLINICAL HISTORY: RIGHT KNEE PAIN. TECHNIQUE: 2D digital imaging was performed. Two views. COMPARISON: CR XR KNEE from 09/08/2008 FINDINGS: BONES: No acute fracture is present. No bony destructive lesion is seen. JOINTS: Total knee prosthesis show satisfactory alignment.. The knee is normally aligned. No joint e ffusion is seen. SOFT TISSUE: Occasion in the distal quadriceps tendon. IMPRESSION: Unremarkable total knee prosthesis.. DATA REPOSITORY: RADIATION DOSE DELIVERED:
== END 2023-07-15 15:03 | disposition home or self-care (01) ==
LOC: DIORS 15:02
PROVIDERS: PCP Family Medicine; Referring Provider Family Medicine; Visit Provider Student in an Organized Health Care Education/Training Program
DX: Z96.651 Presence of right artificial knee joint (principal); Z96.652 Presence of left artificial knee joint; M70.51 Other bursitis of knee, right knee; M70.52 Other bursitis of knee, left knee; M76.31 Iliotibial band syndrome, right leg; M76.32 Iliotibial band syndrome, left leg
CPT/HCPCS: 99213; 73560

== ENCOUNTER 2023-07-19 02:28 | Outpatient (CLI) | payer MEDICARE, SELFPAY ==
[2023-07-19 13:39] LABS: ALT 36 U/L (14-59); AST 38 U/L (15-37); Albumin 3.2 g/dL (3.4-5.0); Alkaline Phosphatase 75 U/L (46-116); Anion Gap 7.3 mmol/L (3-11); BUN 18 mg/dL (7-18); Bilirubin, Total 0.6 mg/dL (0.2-1.0); CO2 30.7 mmol/L (21.0-32.0); CREATININE 1.1 mg/dL (0.55-1.02); Calcium 9.6 mg/dL (8.5-10.1); Chloride 103 mmol/L (98-107); Estimated GFR 53.39 (mL/min/1.73m2); Glucose 100 mg/dL (74-106); Magnesium 1.8 mg/dL (1.8-2.4); PHOSPHORUS 3.8 mg/dL (2.6-4.7); Potassium 4.2 mmol/L (3.5-5.1); Sodium 141 mmol/L (136-145); Total Protein 7.6 g/dL (6.4-8.2)
== END 2023-07-19 02:29 | disposition home or self-care (01) ==
LOC: LBO 02:28
PROVIDERS: PCP Family Medicine; Visit Provider Registered Nurse
DX: F31.30 Bipolar disorder, current episode depressed, mild or moderate severity, unspecified (principal); Z79.899 Other long term (current) drug therapy
CPT/HCPCS: 36415; 80053; 83036; 83735; 84100

== ENCOUNTER 2023-08-15 03:55 | Outpatient (CLI) | payer MEDICARE, SELFPAY ==
[2023-08-15 13:26] LABS: VALPROIC ACID 56.3 ug/mL
== END 2023-08-15 03:56 | disposition home or self-care (01) ==
LOC: LBO 03:55
PROVIDERS: PCP Family Medicine; Visit Provider Registered Nurse
DX: F31.30 Bipolar disorder, current episode depressed, mild or moderate severity, unspecified (principal); Z79.899 Other long term (current) drug therapy
CPT/HCPCS: 36415; 80164

== ENCOUNTER 2023-09-10 06:16 | Day surgery (SDC) | payer MEDICARE, SELFPAY ==
[2023-09-10 06:24] VITALS: BP 180/77; PULSE 79; RESP 16; TEMP 36.3; O2SAT 96
[2023-09-10] MEDS: Lactated Ringers 1,000 ML 80 ML IV (06:44)
[2023-09-10 07:01] VITALS: BMI 33.6
--- NOTE | 2023-09-10 07:01 | W.ANESPRE ---
General Info Date of Service Date Performed: 09/10/23 Height: 5 ft 6.5 in Weight: 95.9 kg Body Mass Index (BMI): 33.6 Surgical Procedure: Operation Date: 09/10/23 07:40 Proposed Procedure Side Surgeon p Wrist ECTR Right Ramón Mejia MD Meds Allergies and Home Medications Allergies Allergy/AdvReac Type Severity Reaction Status Date / Time No Known Allergies Allergy Verified 09/10/23 06:37 Home Medication Medication Instructions Recorded carvedilol 3.125 mg tablet 3.125 mg PO BID 04/24/22 losartan 50 mg tablet 50 mg PO DAILY 04/24/22 mecobalamin (vitamin B12) 1,000 1,000 mcg PO DAILY 04/24/22 mcg chewable tablet (B12 Active) lorazepam 0.5 mg tablet 0.5 mg PO DIRECTED 11/24/22 calcium carbonate 500 mg calcium 1.25 g PO DAILY #0 tabs 11/26/22 (1,250 mg) tablet (Oyster Shell Calcium 500) cholecalciferol (vitamin D3) 25 5,000 unit PO DAILY #0 tabs 11/26/22 mcg (1,000 unit) tablet lorazepam 0.5 mg tablet 0.5 mg PO HS #0 tabs 11/26/22 magnesium chloride 64 mg 64 mg PO BID #0 tabs 11/26/22 (magnesium chloride) tablet,delayed release (Mag 64) melatonin 3 mg tablet 9 mg (3 x 3 mg) PO HS PRN PRN #0 11/26/22 tabs cyanocobalamin (vitamin B-12) 1,000 mcg PO DAILY 04/29/23 1,000 mcg tablet divalproex 250 mg tablet,delayed 250 mg PO DAILY 04/29/23 release (Depakote) divalproex 500 mg tablet,delayed 500 mg PO QHS 04/29/23 release (Depakote) ziprasidone HCl 40 mg capsule 40 mg PO BID 04/29/23 Current Visit Medications: Current Medications Generic Name Dose Route Start Last Admin Trade Name Freq PRN Reason Stop Dose Admin Ringer's Solution 1,000 mls @ 80 mls/hr 09/10/23 06:00 09/10/23 06:44 IV 10/09/23 23:59 80 mls/hr INFUSION VON Administration Cefazolin Sodium/Dextrose 2 gm in 50 mls @ 100 mls/hr 09/10/23 06:00 Ancef Duplex IVPB 09/10/23 16:00 PREOP VON IV Miscellaneous Supplies 1 each 09/10/23 06:00 Iv Access IV 10/09/23 23:59 DIRECTED VON Sodium Chloride 0 ml 09/10/23 06:00 Normal Saline Flush 10 Ml Syr IV 10/09/23 23:59 PRN PRN Sodium Chloride 0 ml 09/10/23 06:00 Normal Saline 10 Ml Vial IJ 10/09/23 23:59 DIRECTED PRN Sterile Water 0 ml 09/10/23 06:00 Water,Injection,Sterile 10 Ml Vial IJ 10/09/23 23:59 DIRECTED PRN PFSH Active Problems Active Problems: Problem Status Onset Code 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 states she states she had a carotid ultrasound a while ago but does not remember how long ago or where it was done. Anes. aware that she has not had a current carotid US, and ok'd to proceed. Surgical History Surgical History Hx of bilateral hip replacements Tobacco Smoking/Tobacco Use Status: Never Alcohol Alcohol Intake: never Substance Use Substance use: Never Substance use type: does not use Vital Signs and Lab Results Vital Signs Most Recent Vital Signs in EMR: Most Recent Vital Signs Temp Pulse Resp BP Pulse Ox 36.3 C L 79 16 180/77 H 96 09/10/23 06:24 09/10/23 06:24 09/10/23 06:24 09/10/23 06:24 09/10/23 06:24 Lab Results Blood Type / Crossmatch: No Data to Display Complete Blood Count: No Data to Display Complete Metabolic Panel: No Data to Display Liver Function Panel: No Data to Display Coagulation Panel: No Data to Display Cardiac Panel: No Data to Display Arterial Blood Gas: No Data to Display Venous Blood Gas: No Data to Display Pancreas Panel: No Data to Display Thyroid Panel: No Data to Display Infectious Disease: No Data to Display Blood Cultures: No Data to Display Toxicology Panel: No Data to Display Imaging and Studies Imaging and Studies Study information below may be from another EMR and interpreted by another provider. Please see original notes in EMR for more complete details. EKG Summary: DATE/TIME OF SERVICE: 11/24/22 0741 : 1950 PERFORMING LOCATION: [place] APPROVED REPORT Exam: Resting ECG Reason for Exam: lithium toxicity Patient Location: I HR:72 bpm ECG Measurements Heart Rate 72 AXIS UT 202 P 41 QRSd 106 QRS 6 QT 462 T82 QTc 506 Conclusion Sinus rhythm...normal P axis, V-rate 50- 99 Borderline T abnormalities, anterior leads...T flat or neg, V2-V4 Prolonged QT interval...QTc >500mS Stress Test Summary: 07/2010: EF 65%, No ischemia Anesthesia Assessment and Plan Anesthesia History Personal History: No History of Anesthesia Complications Family History: No Family History of Anesthesia Complications Exercise Tolerance Exercise Tolerance: Metabolic Equivalents>4 Pertinent Negatives Pertinent Negatives: No Symptoms of GERD, No Major Cardiovascular Symptoms or Complaints and No Major Pulmonary Symptoms or Complaints Cardiac & Pulmonary Exam Cardiac Exam: Normal S1/S2 Heart Sounds Pulmonary Exam: Clear Bilateral Breath Sounds Implantable Cardiac Device Does patient have a Pacemaker or an ICD?: No Airway Exam Known Difficult Airway: No Mallampati Class: 2 Mouth Opening: Normal (> 3cm) Thyromental Distance: Greater than 3 cm Neck Range of Motion: Full ROM Neck Circumference: Normal Teeth Condition: Normal Dentition ASA Classification ASA Score: ASA 2 Emergency Case?: No NPO Status NPO Status: NPO Clears >2 hours, Solids >8 hours Anesthesia Plan Resuscitation Status: Full Code Anesthesia Technique: General Anesthesia Airway Planned: Natural Airway Monitors Used: Standard Monitors
--- NOTE | 2023-09-10 07:16 | W.PREOPHP ---
Assessment and Plan Assessment and plan (1) Right carpal tunnel syndrome: Status: Acute Assessment and plan: Roopa is a 72-year-old female who has carpal tunnel syndrome about the right hand. She has been seen previous for this. Please see the previous office note. She is here today for carpal tunnel release. I discussed the technical details of carpal tunnel release and that I perform an endoscopic release, but would make a larger, open, incision if necessary for visualization. I discussed the risks of the procedure to include, but not limited to, bleeding, infection, palmar pain, stiffness, damage to nerves, damage to vessels, damage to tendons, weakness, recurrence, and incomplete release. Given these risks, Roopa desires to proceed. The pain and stiffness about her middle finger is likely related to arthritis, most commonly at the PIP joint. She does not have any signs of triggering today. We will continue to follow this in the office but I recommend warm Epsom salt soaks. History of Present Illness History of Present Illness Chief Complaint: Right carpal tunnel syndrome Narrative: Roopa is a 72-year-old female have seen previously for right carpal tunnel syndrome. I saw her previously last year with a diagnosis of this disorder. She had failed nonoperative options and elected to proceed with operative intervention. She is now here today for that procedure. She has had continued numbness and tingling about the right hand in the median nerve distribution. She also reports some pain about her middle finger as well as within the wrist itself which does not necessarily fall within the typical expectations of carpal tunnel syndrome. She has no other changes to her health that she reports currently. She denies chest pain or shortness of breath. No recent illnesses. Review of Systems All systems reviewed & are unremarkable except as noted in HPI and below PFSH All Active Problems Iliotibial band friction syndrome of both knees (Acute) Pes anserinus bursitis of both knees (Acute) History of total right knee replacement (Acute) History of total left knee replacement (Acute) Carotid artery stenosis (Acute) Right carpal tunnel syndrome (Acute) History of depression (Acute) CKD (chronic kidney disease), stage III (Acute) Hypertension (Chronic) Medical History Lymphedema Anxiety Female bladder prolapse Back pain Obesity Bipolar disorder Alopecia Arthritis History of uterine cancer Chronic knee pain Peripheral neuropathy Right wrist pain Surgical History Hx of bilateral hip replacements Social History Smoking/Tobacco Use Status: Never Smoking risk assessment performed?: Yes Alcohol Intake: never Drug use: Never Substance use type: does not use Housing: apartment Do you feel safe at home: Yes Do you feel safe in your relationship?: Yes Meds Allergies and Home Medications Allergies Allergy/AdvReac Type Severity Reaction Status Date / Time No Known Allergies Allergy Verified 09/10/23 06:37 Home Medications Medication Instructions Recorded Confirmed Type carvedilol 3.125 mg tablet 3.125 mg PO BID 04/24/22 09/10/23 History losartan 50 mg tablet 50 mg PO DAILY 04/24/22 09/10/23 History mecobalamin (vitamin B12) 1,000 1,000 mcg PO DAILY 04/24/22 09/10/23 History mcg chewable tablet (B12 Active) lorazepam 0.5 mg tablet 0.5 mg PO DIRECTED 11/24/22 09/10/23 History calcium carbonate 500 mg calcium 1.25 g PO DAILY #0 tabs 11/26/22 09/10/23 Rx (1,250 mg) tablet (Oyster Shell Calcium 500) cholecalciferol (vitamin D3) 25 5,000 unit PO DAILY #0 tabs 11/26/22 09/10/23 Rx mcg (1,000 unit) tablet lorazepam 0.5 mg tablet 0.5 mg PO HS #0 tabs 11/26/22 09/10/23 Rx magnesium chloride 64 mg 64 mg PO BID #0 tabs 11/26/22 09/10/23 Rx (magnesium chloride) tablet,delayed release (Mag 64) melatonin 3 mg tablet 9 mg (3 x 3 mg) PO HS PRN PRN #0 11/26/22 09/10/23 Rx tabs cyanocobalamin (vitamin B-12) 1,000 mcg PO DAILY 04/29/23 09/10/23 History 1,000 mcg tablet divalproex 250 mg tablet,delayed 250 mg PO DAILY 04/29/23 09/10/23 History release (Depakote) divalproex 500 mg tablet,delayed 500 mg PO QHS 04/29/23 09/10/23 History release (Depakote) ziprasidone HCl 40 mg capsule 40 mg PO BID 04/29/23 09/10/23 History acetaminophen 500 mg tablet 500 mg PO Q6H PRN pain #60 tabs 09/10/23 Rx hydrocodone 5 mg-acetaminophen 325 1 tab PO Q6H PRN severe pain #4 09/10/23 Rx mg tablet tabs ibuprofen 600 mg tablet 600 mg PO TID PRN pain #60 tabs 09/10/23 Rx Exam Const General: cooperative, healthy appearing, comfortable and no acute distress Resp Effort & Inspection: normal respiratory effort Auscultation: clear to auscultation bilaterally Cardio Rate: regular rate Rhythm: regular rhythm Extrem Other: Right wrist has a positive Durkan's compression test and Phalen's test. No other signs of infection or other areas of swelling. The middle finger does have some fullness about the PIP joint. Actively she seems to limit a slight amount of flexion of the middle finger, mostly through the PIP joint. However, passively I can bring all into the palm. There is minimal pain to palpation of the A1 brayden and no crepitus, clicking, or locking or triggering. Results Last Vital Signs Temp 36.3 C L 09/10/23 06:24 Pulse 79 09/10/23 06:24 Resp 16 09/10/23 06:24 BP 180/77 H 09/10/23 06:24 Pulse Ox 96 09/10/23 06:24
--- NOTE | 2023-09-10 07:18 | PDOC.DSDIS_ITS ---
Date of service: 09/10/23 Time of Service: 07:20 Discharge Plan Disposition Patient Disposition: Home Condition: Good Discharge Details Reason For Visit: Right carpal tunnel syndrome Attending Provider: Ramón Mejia Primary Care Provider: Selwyn Damon [facility] Meds and New Rx's Prescriptions: New acetaminophen 500 mg tablet 500 mg PO Q6H PRN (Reason: pain) Qty: 60 2RF hydrocodone-acetaminophen 5-325 mg tablet 1 tab PO Q6H PRN (Reason: severe pain) Qty: 4 0RF Rx Instructions: Take one tablet up to every 6 hours as needed for severe postoperative pain ibuprofen 600 mg tablet 600 mg PO TID PRN (Reason: pain) Qty: 60 0RF Continued mecobalamin (vitamin B12) [B12 Active] 1,000 mcg tablet,chewable 1,000 mcg PO DAILY carvedilol 3.125 mg tablet 3.125 mg PO BID Rx Instructions: must administer with a meal/food losartan 50 mg tablet 50 mg PO DAILY divalproex [Depakote] 250 mg tablet,delayed release (DR/EC) 250 mg PO DAILY divalproex [Depakote] 500 mg tablet,delayed release (DR/EC) 500 mg PO QHS cyanocobalamin (vitamin B-12) 1,000 mcg tablet 1,000 mcg PO DAILY ziprasidone HCl 40 mg capsule 40 mg PO BID Rx Instructions: give with food (meal/snack) lorazepam 0.5 mg tablet 0.5 mg PO DIRECTED calcium carbonate [Oyster Shell Calcium 500] 500 mg calcium (1,250 mg) Tablet 1.25 g PO DAILY Qty: 0 0RF cholecalciferol (vitamin D3) 25 mcg (1,000 unit) Tablet 5,000 unit PO DAILY Qty: 0 0RF melatonin 3 mg Tablet 9 mg PO HS PRN PRNQty: 0 0RF lorazepam 0.5 mg Tablet 0.5 mg PO HS Qty: 0 0RF Mag 64 64 mg Tablet,Delayed Release (Dr/Ec) 64 mg PO BID Qty: 0 0RF Patient Comments: States she's not taking. Discharge Instructions Stand Alone Forms: Roberto Yuan Tunnel Release Referrals: Ramón Mejia MD [ [facility] STAFF PHYSICIAN] - Activity:: Elevate Remove Dressings/Wound Care:: 48 hours Shower/Bathe:: 48 hours Diet:: As Tolerated Discharge Orders Discharge Orders: Discharge Order (Routine); Ordered 09/10/23 Ordered By: Antoinette Núñez
[2023-09-10] MEDS: ceFAZolin 2 GM/50 ML BAG IVPB (07:24)
[2023-09-10] MEDS: Lidocaine 1% Multi-Dose W/EPI 1/100,000 50 ML VIAL (07:30)
--- NOTE | 2023-09-10 07:43 | W.PM.OP ---
Date of service: 09/10/23 Time of Service: 07:30 Operative Note Operative Note DATE OF PROCEDURE: 09/10/23 PRE-OP DIAGNOSIS: Right Carpal Tunnel Syndrome POST-OP DIAGNOSIS: same PROCEDURE: Right Endoscopic Carpal Tunnel Release SURGEON: Ramón Mejia ANESTHESIA TYPE: General:No Airway Refer to Anesthesia Record ESTIMATED BLOOD LOSS: 0 PATHOLOGY: none sent TOURNIQUET TIME: 2 COMPLICATIONS: None Patient was transported to: same day Patient's condition: stable Indications: I have seen Roopa in clinic for symptoms of carpal tunnel syndrome. The numbness, tingling, and pain limited function. Clinical exam findings confirmed the diagnosis of carpal tunnel syndrome. Nonoperative measures such as bracing, time, activity modifications had been tried but disability and pain persisted. I discussed carpal tunnel release with the patient. I reviewed the risks of the procedure to include, but not limited to, bleeding, infection, pain, stiffness, incomplete release, damage to nerves or vessels, persistent numbness, recurrence. Despite these risks, the patient elected to proceed. Findings: There was tightened carpal tunnel. This was dilated and released successfully with the endoscopic with increased space within the tunnel. The antebrachial fascia was released proximally freeing the median nerve at the wrist. Procedure Description: Roopa was greeted in the preoperative holding area where the correct side was identified and marked. The consent was reviewed with the patient and signed. The history and physical was updated. All questions were answered. She was taken back to the operating room. The patient was placed into the supine position on the operating room table with the right arm on an arm board. A nonsterile tourniquet was placed high onto the arm. All bony prominences were well padded. Prophylactic antibiotics in the form of Cefazolin were administered. The right arm was then prepped with Chloraprep and draped in a standard fashion with stockinette and extremity drape. A timeout to confirm correct identity, side and site, procedure, allergies, anesthesia, and medical concerns was performed. The surgical site was marked in the volar wrist creases in line with the radial border of the fourth ray. This area was anesthetized with approximately 6cc of 1% Lidocaine. The limb was then exsanguinated with an Esmarch. The skin was incised with a 15 blade, approximately 1cm. The skin only was cut and the deeper tissue was dissected bluntly with a tenotomy scissor, avoiding passing nerve and venous structures. The fascia was penetrated and opened bluntly. A two-prong skin hook was placed under this proximal fascial edge. A series of hamate finders were used to identify and dilate the carpal tunnel. Synovial elevator was used to free synovial attachments to the underside of the transverse carpal ligament. My thumb was kept in the palm to dyana the distal extent of the carpal tunnel and correctly position the hand. The Microaire endoscope was inserted without difficulty and without resistance. Excellent visualization showed horizontally running fibers of the transverse carpal ligament (TCL). The distal extent of the TCL was visualized and the end of the scope palpated with the thumb. The blade was elevated and withdrawn from distal to proximal. The TCL was split into two flaps. The endoscope was reinserted to confirm complete release and any remnant ligament was incised. The scope was withdrawn and the proximal aspect of the carpal tunnel was grossly inspected and appeared release with the median nerve visible. The antebrachial fascia at the level of the wrist was then freed from the overlying skin and then the underlying median nerve with blunt dissection. This was transected longitudinally for about 3cm proximal to the wrist incision. The wound was then irrigated with easy flow of irrigant distally and proximally. The incision was closed with a single 4-0 Nylon suture. The wound was dressed with Xeroform, Gauze, Kerlix and Ahsan. The tourniquet was deflated with the initial dressing and held with some pressure. Blood flow returned easily to all digits with capillary refill less than 2 seconds. The patient tolerated the procedure well and was returned to the Same Day Surgery area in a stable condition suffering no known complication.
[2023-09-10 07:45] VITALS: BP 128/58; PULSE 75; RESP 16; TEMP 36.1; O2SAT 91
[2023-09-10 08:21] VITALS: BP 172/72; PULSE 74; RESP 16; TEMP 36.3; O2SAT 97
--- NOTE | 2023-09-10 08:42 | W.ANESPOSTOP ---
Postoperative Evaluation Date, Time and Location Date Performed: 09/10/23 Time Performed: 08:42 Patient Location: Day Surgery Unit Vital Signs Most Recent Imported Vital Signs: Most Recent Vital Signs Temp Pulse Resp BP Pulse Ox 36.3 C L 74 16 172/72 H 97 09/10/23 08:21 09/10/23 08:21 09/10/23 08:21 09/10/23 08:21 09/10/23 08:21 Pain Score Most Recent Pain Score: Most Recent Pain Score Pain Level 0 09/10/23 08:21 Assessment Mental Status: Awake (Alert & Oriented to Patient Baseline) Airway and Respiratory Function: Patent airway with normal (patient baseline) respiratory exam Cardiovascular Function: Hemodynamically Stable Hydration Status: Adequately Hydrated Nausea & Vomiting: No Nausea or Vomiting Pain: Pt. Denies Any Pain Peripheral Nerve Block: Patient did not receive a nerve block Postoperative Comments:: Ordered Losartan for patient. Her preference is to take it once she gets home. Reasonable plan given current numbers.
== END 2023-09-10 08:39 | disposition home or self-care (01) ==
PROVIDERS: PCP Family Medicine; Visit Provider Student in an Organized Health Care Education/Training Program
PROC: 01N54ZZ Release Median Nerve, Percutaneous Endoscopic Approach (ICD-10-PCS; CPT 29848; principal; 2023-09-10 07:30)
DX: G56.01 Carpal tunnel syndrome, right upper limb (principal); N18.30 Chronic kidney disease, stage 3 unspecified; I12.9 Hypertensive chronic kidney disease with stage 1 through stage 4 chronic kidney disease, or unspecified chronic kidney disease
CPT/HCPCS: 29848; J0690; J2001; J2004; J2405; J2704

== ENCOUNTER → 2023-09-20 09:28 | Outpatient (BNVA) | payer MEDICARE, SELFPAY | PROVIDERS: PCP Family Medicine; Referring Provider Family Medicine | DX: Z47.89 Encounter for other orthopedic aftercare (principal); G56.01 Carpal tunnel syndrome, right upper limb ==

== ENCOUNTER 2023-12-11 05:20 | Outpatient (CLI) | payer MEDICARE, SELFPAY ==
[2023-12-11 10:46] LABS: Anion Gap 11.7 mmol/L (3-11); BUN 16 mg/dL (7-18); CO2 27.3 mmol/L (21.0-32.0); Calcium 9.3 mg/dL (8.5-10.1); Calculated LDL 59 mg/dL (<100); Chloride 107 mmol/L (98-107); Cholesterol 149 mg/dL (<200); Estimated GFR 59.49 (mL/min/1.73m2); Glucose 93 mg/dL (74-106); HDL Cholesterol 71 mg/dL (40-60); Potassium 4.1 mmol/L (3.5-5.1); Sodium 146 mmol/L (136-145); Triglyceride 98 mg/dL (<150)
[2023-12-11 11:07] LABS: VALPROIC ACID 80.9 ug/mL
== END 2023-12-11 05:21 | disposition home or self-care (01) ==
LOC: LBO 05:20
PROVIDERS: PCP Family Medicine; Visit Provider Registered Nurse
DX: N18.30 Chronic kidney disease, stage 3 unspecified (principal)
CPT/HCPCS: 36415; 80048; 80061; 80164

== ENCOUNTER 2024-04-01 10:29 | Outpatient (CLI) | payer MEDICARE, SELFPAY ==
--- OUTSIDE RECORDS SUMMARY | 2024-04-01 10:31 | XMS_ITS | Encounter Summary ---
Author Organization [facility] Address [address] [place] [address] Care Team Providers Care Calcine Furnace Loader Name Role Phone Selwyn Damno MD Primary Care Provider [phone] Encounter Details Date Type Department Care Team (Late st Contact Info) Description 05/29/2023 Lab Requisition [facility] Pathology & Laboratory Medicine - [facility] [address] [place] [address] Selwyn Damon MD [address] [place] [id number] Squamous cell carcinoma of skin, unspecified Social History Tobacco Use Types Packs/Day Years Used Date Smoking Tobacco: Never Assessed Sex and Gender Information Value Date Recorded Sex Assigned at Not on file Gender Identity Not on file Sexual Orientation Not on file documented as of this encounter Plan of Treatment Not on file documented as of this encounter Procedures Procedure Name Priority Date/Time Associated Diagnosis Comments SURGICAL PATHOLOGY Today 05/28/2023 16 :00 EDT Squamous cell carcinoma of skin, unspecified documented in this encounter Results * SURGICAL PATHOLOGY (05/28/2023 16:00 EDT) Note to Patient The following pathology results have been interpreted by your pathologist and may be available to you before your health provider has had the opportunity to review them. Please allow time for your provider to receive these results and explore management options, if applicable. 05/30/2023 10:48 EDT [facility] Final Diagnosis A. SKIN OF LEG, LEFT LOWER, EXCISION: - Scar and biopsy site change; no residual carcinoma. 05/30/2023 10:48 [facility] Attestation By the signature below, the attending physician certifies that they have 1) personally conducted a gross and/or microscopic examination of the described specimen(s), and/or personally interpreted the results of laboratory testing of the described specimen(s), and 2) personally rendered or confirmed the above diagnosis. 05/30/2023 10:48 [facility] at 1048 Clinical History Scab at base of wound from previous SCC; clinical diagnosis code: C44.92 05/30/2023 10:48 [facility] Gross Description A. Received in formalin labelled with proper patient identification (initials D, R) and L lower leg is an elliptical excision of pink, finely granular, focally scaly and friable skin with a black suture along one edge. However, the requisition does not state what the suture designates, thus the suture is arbitrarily designated as 12 o'clock. The specimen measures 1.0 cm from 12 o'clock to 6 o'clock, 2.1 cm from 9 o'clock to 3 o'clock, and is excised to a depth of 0.5 cm. The center of the cutaneous surface has a somewhat crevice-like appearance. There is a laceration along the edge of the specimen from 12 o'clock to 9 o'clock that measures 0.6 cm in length. The 12 o'clock margin is inked blue and the 6 o'clock margin is inked black. The specimen is serially sectioned from 9 o'clock to 3 o'clock and is entirely submitted as follows: BLOCK PITTMAN A1- 9 o'clock tip, reverse en face A2-A3- 5 central sections A4- 3 o'clock tip, reverse en face Britt Hunter 05/29/2023 11:44 05/30/2023 10:48 [facility] Performing Lab [facility] 05/30/2023 10:48 [facility] Scanned Images 05/30/2023 10:48 [facility] Tissue SPECIMEN FROM SKIN / Unknown 05/28/2023 16:00 EDT 05/29/2023 8:47 EDT Selwyn Damon MD PATHOLOGY ORDERABLES [facility] [address] [place] [address] documented in this encounter Visit Diagnoses Diagnosis Squamous cell carcinoma of skin, unspecified documented in this encounter Care Teams Calcine Furnace Loader Relationship Specialty Start Date End Date Selwyn Damon MD [address] [place] [address] [place] [address] PCP - General 05/05/23 documented as of this encounter
--- OUTSIDE RECORDS SUMMARY | 2024-04-01 10:31 | XMS_ITS | Clinical Summary ---
Author Organization [facility] Address [address] [place] [address] Care Team Providers Care Textile Colorist Dyer Name Role Phone Selwyn Damon MD Primary Care Provider [phone] Social History Tobacco Use Types Packs/Day Years Used Date Smoking Tobacco: Never Assessed Sex and Gender Information Value Date Recorded Sex Assigned at Not on file Gender Identity Not on file Sexual Orientation Not on file Plan of Treatment Health Maintenance Due Date Last Done Comments Hepatitis C Screen 1950 RSV Immunization ( o r 60+ Years) (1 - 1-dose 60+ series) 2010 Fall Risk Screening 2015 COVID-19 Vaccine ( season) 2023 Care Teams Textile Colorist Dyer Relationship Specialty Start Date End Date Selwyn Damon MD [facility] [place] [address] PCP - General 05/05/23
--- OUTSIDE RECORDS SUMMARY | 2024-04-01 10:31 | XMS_ITS | Encounter Summary ---
Author Organization [facility] Address [address] [place] [address] Care Team Providers Care Magazine Supervisor Name Role Phone Unavailable Primary Care Provider Unavailabl e Encounter Details Date Type Department Care Team (Latest Contact Info) Description 05/17/2008 14:48 EDT Hospital Encounter [facility] [address] [place] [address] Aleisha Eldridge MD [address] [place] [phone] Discharge Disposition: Auto Discharge Social History Tobacco Use Types Packs/Day Years Used Date Smoking Tobacco: Never Assessed Sex and Gender Information Value Date Recorded Sex Assigned at Not on file Gender Identity Not on file Sexual Orientation Not on file documented as of this encounter Discharge Disposition Disposition Code Departure Means Destination Auto Discharge documented in this encounter Plan of Treatment Not on file documented as of this encounter Procedures Procedure Name Priority Date/Time Associated Diagnosis Comments SURGICAL PATHOLOGY Routine 05/17/2008 0:00 EDT documented in this encounter Results * SURGICAL PATHOLOGY (05/17/2008 0:00 EDT) Pathology Report: SURGICAL PATHOLOGY REPORT ? Reports generated via electronic interface contain original data; ? however they are lacking the format of the original report. ? Caution should be taken when reading/interpreti ng unformatted reports. ? Name: ? DODGE, ATUL ? Accession #: ? [id number] ? : ? 1950 (Age: 57) ??F ? Collect Date: ? 05/17/2008 ? Location: ? [facility] ? Receive Date: ? 05/17/2008 ? Provider: ALEISHA ELDRIDGE MD ? Copy to: ? Final Pathologic Diagnosis: ? Skin of sternal notch, shave biopsy: ? - Actinic keratosis. ? Document reviewed and electronically signed by: ? LISA A DICKSON MD ? Report ??Date: 05/19/2008 13:28 ? By the signature above, the attending physician certifies that he/she has ? personally conducted a gross and/or microscopic examination of the described ? specimens and rendered or confirmed the above diagnosis. ? Specimen(s) Received: ? Shave biopsy sternal notch ? Clinical History: ? H/O SCCIS & possibly SCC, crusted papule lower anterior neck/upper chest ?? x months; ISK vs AK vs SCC; clinical diagnosis code: ??238.2 ? Gross Description: ? Received in formalin labelled Davis and sternal notch is a 0.7 x 0.7 x 0.1 cm skin shave of crane-white, roughened skin, trisected and entirely submitted in a single cassette. ??(Mike George)/steven ? End of Report ? [facility] 05/17/2008 05/17/2008 17: 35 EDT Aleisha Eldridge MD PATHOLOGY [facility] Organization Address City/State/[facility] Co de Phone Number [facility] [address] [place] [address] documented in this encounter Visit Diagnoses Not on filedocumented in this encounter
--- OUTSIDE RECORDS SUMMARY | 2024-04-01 10:31 | XMS_ITS | Encounter Summary ---
Author Organization [facility] Address [address] [place] [address] Care Team Providers Care Night Patrol Inspector Name Role Phone Selwyn Norris MD Primary Care Provider [phone] Encounter Details Date Type Department Care Team (Late st Contact Info) Description 04/22/2008 Before PRISM Converted Visit (Maple) [facility] - Maple conversion [address] [place] [address] Brionna Stack, TOLL LINEMAN [address] [facility],[address] [phone] Social History Tobacco Use Types Packs/Day Years Used Date Smoking Tobacco: Never Assessed Sex and Gender Information Value Date Recorded Sex Assigned at Not on file Gender Identity Not on file Sexual Orientation Not on file documented as of this encounter Plan of Treatment Not on file documented as of this encounter Procedures Procedure Name Priority Date/Time Associated Diagnosis Comments CYTOPATHOLOGY Routine 04/22/2008 0:00 EDT documented in this encounter Results * CYTOPATHOLOGY (04/22/2008 0:00 EDT) Pathology Report: CYTOPATHOLOGY REPORT ? Reports generated via electronic interface contain original data; ? however they are lacking the format of the original report. ? Caution should be taken when reading/interpreti ng unformatted reports. ? Name: ? ATUL CALERO ? Accession #: ? [id number] ? : ? 1950 (Age: 57) ??F ?Collect Date: ? 04/22/2008 ? Location: ? [facility] ? Receive Date: ? 04/26/2008 ? Provider: ?BRIONNA STACK NP ? Copy to: ? Specimen/Source: ?ThinPrep Pap Test, Cervix/Endocervix, processed on Cytyc ThinPrep Imaging System, with manual evaluation ? Last Menstrual Period: ? Menstrual/Pregnanc y Status: ? Post Menopausal ? Previous Gynecologic Pathology: ? Yes: years ago ? Treatment History: ? Miscellaneous treatment: Conization years ago ? Other: ? HPVA - HPV testing requested if ASC-US on the current ThinPrep Pap test. ? SPECIMEN ADEQUACY ? Satisfactory for Evaluation ? - transformation zone component present ? GENERAL CATEGORIZATION ? Negative for Intraepithelial Lesion or Malignancy ? INTERPRETATION ? Reactive cellular changes associated with inflammation present (includes ?? repair). ? Document reviewed and electronically signed by: ? Dawood Holland. Plotz, MD ? Report Date: ??05/03/2008 10:00 ? End of Report ? [facility] 04/22/2008 04/26/2008 Brionna Stack TOLL LINEMAN PATHOLOGY ORDERABLES Performing Organization Address City/State/[facility] Co de Phone Number [facility] [address] [place] [address] documented in this encounter Visit Diagnoses Not on filedocumented in this encounter Care Teams Night Patrol Inspector Relationship Specialty Start Date End Date Selwyn Norris MD [address] [place] [phone] PCP - General 02/16/09 05/04/23 documented as of this encounter
--- OUTSIDE RECORDS SUMMARY | 2024-04-01 10:31 | XMS_ITS | Encounter Summary ---
Author Organization [facility] Address [address] [place] [address] Care Team Providers Care Roller Billet Mill Name Role Phone Unavailable Primary Care Provider Unavailabl e Encounter Details Date Type Department Care Team (Latest Contact Info) Description 12/09/2000 10:34 EDT - 12/09/2000 11:59 EDT Hospital Encounter [facility] - Other [address] [place] [address] Graciela Cherry MD Unknown, Provider, Discharge Disposition: Auto Discharge Social History Tobacco [...] Priority Date/Time Associated Diagnosis Comments CYTOPATHOLOGY Routine 12/09/2000 0:00 EDT documented in this encounter Results * CYTOPATHOLOGY (12/09/2000 0:00 EDT) Pathology Report: CYTOPATHOLOGY REPORT Reports generated via electronic interface contain original data; however they are lacking the format of the original report. Caution should be taken when reading/interpreti ng unformatted reports. Name: ? ATUL CALERO ? Accession #: ? [id number] : ? 1950 (Age: 50) ??F ?Collect Date: ? 12/09/2000 Location: ? [facility] ? Receive Date: ? 12/10/2000 Provider: ?GRACIELA CHERRY MD Copy to: ?ANNABELLE DE LEÓN MD ? Specimen/Source: ?ThinPrep Pap Test, Cervix/Endocervix Last Menstrual Period: ? 11/24/00 ? SPECIMEN ADEQUACY ? Satisfactory for evaluation. GENERAL CATEGORIZATION ? Within Normal Limits ? Document reviewed and electronically signed by: ? Grecia Oliva, SCT(ASCP) ? Report Date: ??12/11/2000 12:13 End of Report [facility] 12/09/2000 12/10/2000 Graciela Cherry MD PATHOLOGY OR DERABLES [facility] [address] [place] [address] documented in this encounter Visit Diagnoses Not on filedocumented in this encounter
--- OUTSIDE RECORDS SUMMARY | 2024-04-01 10:31 | XMS_ITS | Encounter Summary ---
Author Organization [facility] Address [address] [place] [address] Care Team Providers Care Animal Caretaker Supervisor Name Role Phone Unavailable Primary Care Provider Unavailabl e Encounter Details Date Type Department Care Team (Late st Contact Info) Description 06/21/2000 10:09 EST Hospital Encounter [facility] - Other [address] [place] [address] Christiano De León MD [address] [place] [address] [address] [place] [address] Unknown, Provider, Social History Tobacco Use Types Packs/Day Years Used Date Smoking Tobacco: Never Assessed Sex and Gender Information Value Date Recorded Sex Assigned at Not on file Gender Identity Not on file Sexual Orientation Not on file documented as of this encounter Plan of Treatment Not on file documented as of this encounter Procedures Procedure Name Priority Date/Time Associated Diagnosis Comments CYTOPATHOLOGY Routine 06/21/2000 0:00 EST documented in this encounter Results * CYTOPATHOLOGY (06/21/2000 0:00 EST) Pathology Report: CYTOPATHOLOGY REPORT Reports generated via electronic interface contain original data; however they are lacking the format of the original report. Caution should be taken when reading/interpreti ng unformatted reports. Name: ? ATUL CALERO ? Accession #: ? [id number] : ? 1950 (Age: 49) ??F ?Collect Date: ? 06/21/2000 Location: ? [facility] ? Receive Date: ? 06/25/2000 Provider: ?CHRISTIANO DE LEÓN MD Copy to: ?ORIANA MCKEON DESK PENS ASSEMBLER ? Specimen/Source: ?ThinPrep Pap Test, Vagina/Endocervix Last Menstrual Period: ? 06/01/00 Previous Gynecologic Pathology: ? Yes: 1994 Treatment History: ? Cone biopsy: 1979' ? SPECIMEN ADEQUACY ? Satisfactory for evaluation. GENERAL CATEGORIZATION ? Epithelial Cell Abnormality DESCRIPTIVE DIAGNOSIS ? Atypical squamous cells of undetermined significance (ASCUS), favor reactive process. RECOMMENDATION ? Recommend repeat Pap test in 3-6 months or further follow up, as clinically indicated. ? Document reviewed and electronically signed by: ? FAVIO IRVIN MD ? Report Date: ??07/09/2000 12:48 End of Report [facility] 06/21/2000 06/25/2000 Christiano De León MD PATHOLOGY ORDERABLE [facility] [address] [place] [address] documented in this encounter Visit Diagnoses Not on filedocumented in this encounter
--- OUTSIDE RECORDS SUMMARY | 2024-04-01 10:31 | XMS_ITS | Encounter Summary ---
Author Organization [facility] Address [address] [place] [address] Care Team Providers Care Net Software Architect Name Role Phone Unavailable Primary Care Provider Unavailabl e Encounter Details Date Type Department Care Team (Latest Contact Info) Description 08/24/2000 8:44 EST - 08/24/2000 11:59 EST Hospital Encounter [facility] Emergency Department - Main [place] [address] [place], [place] [id number] Emergency, Default, MD Discharge Disposition: Home or Self Care Social History Tobacco Use Types Packs/Day Years Used Date Smoking Tobacco: Never Assessed Sex and Gender Information Value Date Recorded Sex Assigned at Not on file Gender Identity Not on file Sexual Orientation Not on file documented as of this encounter Discharge Disposition Disposition Code Departure Means Destination Home or Self Care documented in this encounter Plan of Treatment Not on file documented as of this encounter Procedures Procedure Name Priority Date/Time Associated Diagnosis Comments CT ABDOMEN W/CONTRAST Routine 08/24/2000 11:[address] PELVIS W/CONTRAST Routine 08/24/2000 11:07 EST HEMAGRAM & DIFF Routine 08/24/2000 9:35 EST documented in this encounter Results * CT PELVIS W/CONTRAST (08/24/2000 11:07 EST) Anatomical Region Laterality Modality Other 08/24/2000 11:0 7 EST Impressions 06/15/2009 1:19 EST IMPRESSION: Findings consistent with diverticulitis. These findings have been conveyed directly to Dr. Jorden Arguello, in the Emergency Room. /ts Narrative 06/15/2009 1:19 EST LLQ PAIN X 5 DAYS ??R/O DIVERTICULITIS CT OF THE ABDOMEN AND PELVIS, WITH CONTRAST: 08/24/00, 10:30. No comparisons. Abdomen and pelvis with rectal contrast TECHNIQUE ABDOMEN: Prior to the examination, the patient was given oral contrast material. Using intravenous contrast, sections were made from the domes of the diaphragm through the iliac crests. TECHNIQUE PELVIS: After the above preparation and the administration of a contrast enema, sections were made from the iliac crests through the ischial tuberosities. FINDINGS: The lung bases, liver, spleen, pancreas, adrenal glands, and kidneys are unremarkable. There is a minimal amount of free fluid in the pelvis as seen on Image #45. No evidence of free air is identified. Extensive diverticulosis throughout the sigmoid colon is identified. There is considerable bowel wall thickening at the junction of the descending colon and sigmoid colon, with associated surrounding fat stranding, as best appreciated on Image #35. These finding are consistent with diverticulitis. The remainder of the examination is remarkable for normal ovaries, and left-sided nabothian cysts. The small bowel and remainder of the large bowel is in unremarkable. The bones are unremarkable. Procedure Note Jack Woodall MD / Lisette Barron MD - 06/15/2009 LLQ PAIN X 5 DAYS R/O DIVERTICULITIS CT OF THE ABDOMEN AND PELVIS, WITH CONTRAST: 08/24/00, 10:30. No comparisons. Abdomen and pelvis with rectal contrast TECHNIQUE ABDOMEN: Prior to the examination, the patient was given oral contrast material. Using intravenous contrast, sections were made from the domes of the diaphragm through the iliac crests. TECHNIQUE PELVIS: After the above preparation and the administration of a contrast enema, sections were made from the iliac crests through the ischial tuberosities. FINDINGS: The lung bases, liver, spleen, pancreas, adrenal glands, and kidneys are unremarkable. There is a minimal amount of free fluid in the pelvis as seen on Image #45. No evidence of free air is identified. Extensive diverticulosis throughout the sigmoid colon is identified. There is considerable bowel wall thickening at the junction of the descending colon and sigmoid colon, with associated surrounding fat stranding, as best appreciated on Image #35. These finding are consistent with diverticulitis. The remainder of the examination is remarkable for normal ovaries, and left-sided nabothian cysts. The small bowel and remainder of the large bowel is in unremarkable. The bones are unremarkable. IMPRESSION IMPRESSION: Findings consistent with diverticulitis. These findings have been conveyed directly to Dr. Jorden Arguello, in the Emergency Room. /ts Jorden Arguello MD [facility] CT ORDERABLES * CT ABDOMEN W/CONTRAST (08/24/2000 11:07 EST) Anatomical Region Laterality Modality Other 08/24/2000 11:0 7 EST Narrative 06/15/2009 1:19 EST LLQ PAIN X 5 DAYS ??R/O DIVERTICULITIS Procedure Note Jack Woodall MD / Lisette Barron MD - 06/15/2009 LLQ PAIN X 5 DAYS R/O DIVERTICULITIS Jorden Arguello MD [facility] CT ORDERABLES * (ABNORMAL) HEMAGRAM & DIFF (08/24/2000 9:35 EST) WBC 12.58(H) 4.0 - 12.4 K/cmm [facility] RBC 4.58 3.86 - 5.04 M/cmm [facility] Hemoglobin 13.4 11.6 - 15.2 gm/dl [facility] HCT 40.0 34.9 - 44.4 % [facility] MCV 87 81 - 98 fl [facility] MCH 29.3 26.7 - 33.3 pg [facility] MCHC 33.5 32.1 - 35.9 gm/dl [facility] PLT 298 141 - 320 K/cmm [facility] RDW-CV 12.7 11.7 - 14.6 % [facility] % Neutrophils 82.4(H) 45.5 - 79.7 % [facility] % Lymphocytes 12.7(L) 15.0 - 46.8 % [facility] % Monocytes 4.0 1.8 - 12.0 % [facility] % Eosinophils 0.9 0.6 - 6.9 % [facility] % Basophils 0.0(L) 0.2 - 1.4 % [facility] ABS Neutrophils 10.37(H) 2.20 - 8.85 K/cmm [facility] ABS Lymphs 1.60 1.09 - 3.30 K/cmm [facility] ABS Monocytes 0.50 0.1 - 0.8 K/cmm [facility] ABS Eosinophils 0.11 0.03 - 0.61 K/cmm [facility] ABS Basophils 0.00(L) 0.01 - 0.11 K/cmm [facility] Type of Diff: Automated [facility] 08/24/2000 9:35 EST 08/24/2000 9:49 EST Default Emergency HISTORICAL LAB FOR SQ LOAD [facility] [address] [place] [address] documented in this encounter Visit Diagnoses Not on filedocumented in this encounter
--- OUTSIDE RECORDS SUMMARY | 2024-04-01 10:31 | XMS_ITS | Encounter Summary ---
Author Organization [facility] Address [address] [place] [address] Care Team Providers Care Sheet Metal Layout Mechanic Name Role Phone Unavailable Primary Care Provider Unavailabl e Encounter Details Date Type Department Care Team (Late st Contact Info) Description 10/22/2008 Before PRISM Converted Visit (Maple) [facility] - Maple conversion [address] [place] [address] Brionna Stack NP [address] [facility],[address] [address] Social History Tobacco Use Types Packs/Day Years Used Date Smoking Tobacco: Never Assessed Sex and Gender Information Value Date Recorded Sex Assigned at Not on file Gender Identity Not on file Sexual Orientation Not on file documented as of this encounter Plan of Treatment Not on file documented as of this encounter Procedures Procedure Name Priority Date/Time Associated Diagnosis Comments LIPID PROFILE (INCLUDES CHOLESTEROL, TRIGLYCERIDES, HDL, LDL) Routine 10/22/2008 8:26 EDT documented in this encounter Results * LIPID PROFILE (10/22/2008 8:26 EDT) Cholesterol 149 mg/dl [facility] Comment: Desirable:<200 Borderline High:200-239 High:>za=398 Triglycerides 92 35 - 160 mg/dl [facility] HDL 64 mg/dl [facility] Comment: Low:<40 High(Desirable):>or=60 LDL, Calculated 67 mg/dl [facility] Comment: Optimal:<100 Above optimal:100-129 Borderline High:130-159 High:160-189 Very High:>np=317 Chol/HDL Ratio 2.3 [facility] Fasting? Yes [facility] 10/22/2008 8:26 EDT 10/22/2008 8:54 EDT Brionna Stack NP CHEMISTRY & BLOOD GA S ORDERABLES Performing Organization Address City/State/[facility] Co de Phone Number [facility] [address] [place] [address] documented in this encounter Visit Diagnoses Not on filedocumented in this encounter
--- OUTSIDE RECORDS SUMMARY | 2024-04-01 10:31 | XMS_ITS | Encounter Summary ---
Author Organization [facility] Address [address] [place] [address] Care Team Providers Care Hookman Name Role Phone Unavailable Primary Care Provider Unavailabl e Encounter Details Date Type Department Care Team (Latest Contact Info) Description 08/26/2000 17:56 EST Hospital Encounter [facility] Emergency Department - Main [place] [address] [place], [place] [id number] Emergency, Default, MD Discharge Disposition: Home or [...] on file documented as of this encounter Visit Diagnoses Not on filedocumented in this encounter
--- OUTSIDE RECORDS SUMMARY | 2024-04-01 10:31 | XMS_ITS | Encounter Summary ---
Author Organization [facility] Address [address] [place] [address] Care Team Providers Care Rotary Operator Name Role Phone Unavailable Primary Care Provider Unavailabl e Encounter Details Date Type Department Care Team (Late st Contact Info) Description 10/17/2000 17:40 EST Hospital Encounter [facility] - Other [address] [place] [address] Christiano De León MD [address] [place] [address] [address] [place] [address] Unknown, Provider, Social History Tobacco [...] Priority Date/Time Associated Diagnosis Comments CYTOPATHOLOGY Routine 10/17/2000 0:00 EST documented in this encounter Results * CYTOPATHOLOGY (10/17/2000 0:00 EST) Pathology Report: CYTOPATHOLOGY REPORT Reports generated via electronic interface contain original data; however they are lacking the format of the original report. Caution should be taken when reading/interpreti ng unformatted reports. Name: ? ATUL CALERO ? Accession #: ? [id number] : ? 1950 (Age: 50) ??F ?Collect Date: ? 10/17/2000 Location: ? [facility] ? Receive Date: ? 10/18/2000 Provider: ?CHRISTIANO DE LEÓN MD Copy to: ? Specimen/Source: ?ThinPrep Pap Test, Vagina/Endocervix Last Menstrual Period: ? 10/11/00 Previous Gynecologic Pathology: ? ASC-US: ? SPECIMEN ADEQUACY ? Satisfactory for evaluation. GENERAL CATEGORIZATION ? Epithelial Cell Abnormality DESCRIPTIVE DIAGNOSIS ? Endometrial cells present, cytologically benign, in a postmenopausal woman or woman greater than age 50. ? Document reviewed and electronically signed by: ? JARED BECERRIL MD [facility] ? Report Date: ??10/23/2000 17:21 End of Report [facility] 10/17/2000 10/18/2000 Christiano De León MD PATHOLOGY ORDERABLE S [facility] [address] [place] [address] documented in this encounter Visit Diagnoses Not on filedocumented in this encounter
--- OUTSIDE RECORDS SUMMARY | 2024-04-01 10:31 | XMS_ITS | Encounter Summary ---
Author Organization [facility] Address [address] [place] [address] Care Team Providers Care Materials Planning Manager Name Role Phone Unavailable Primary Care Provider Unavailabl e Encounter Details Date Type Department Care Team (Latest Contact Info) Description 08/31/2000 0:06 EST - 08/31/2000 11:59 EST Hospital Encounter [facility] Emergency Department - Main [place] [address] [place], [place] [id number] Emergency, Default, MD Discharge Disposition: Home or [...]
--- OUTSIDE RECORDS SUMMARY | 2024-04-01 10:31 | XMS_ITS | Encounter Summary ---
Author Organization [facility] Address [address] [place] [address] Care Team Providers Care Dyed Yarn Operator Name Role Phone Unavailable Primary Care Provider Unavailabl e Encounter Details Date Type Department Care Team (Latest Contact Info) Description 07/17/2008 14:19 EST Hospital Encounter [facility] [address] [place] [address] Selwyn Norris MD [address] [place] [phone] Discharge Disposition: Auto Discharge Social History Tobacco [...] Procedure Name Priority Date/Time Associated Diagnosis Comments HIP UNILATERAL 2 OR MORE VIEWS 07/17/2008 14:30 EST documented in this encounter Results * HIP UNILATERAL 2 OR MORE VIEWS (07/17/2008 14:30 EST) Anatomical Region Laterality Modality Other 07/17/2008 14:3 0 EST Narrative 12/20/2008 10:26 EDT Left hip pain, 719.45. Left groin pain, 789.0. HIP 2 VIEWS July 17, 2008 1432 Indication: Left hip pain, left groin pain Comparison: None. Findings: 2 radiographs of the left hip were obtained. There are moderate degenerative changes including joint space narrowing, subchondral sclerosis, and marginal osteophytosis. No acute osseous abnormality is seen. Alignment is anatomic. The soft tissues are normal. Impression: No fracture seen. Moderate degenerative changes. I have personally reviewed the images and the above interpretation and agree with the findings. Procedure Note Porfirio Chin MD / Carli Park MD - 12/20/2008 Left hip pain, 719.45. Left groin pain, 789.0. HIP 2 VIEWS July 17, 2008 1432 Indication: Left hip pain, left groin pain Comparison: None. Findings: 2 radiographs of the left hip were obtained. There are moderate degenerative changes including joint space narrowing, subchondral sclerosis, and marginal osteophytosis. No acute osseous abnormality is seen. Alignment is anatomic. The soft tissues are normal. Impression: No fracture seen. Moderate degenerative changes. I have personally reviewed the images and the above interpretation and agree with the findings. Selwyn Norris MD IMG DIAGNOSTIC IMAGI NG ORDERABLES documented in this encounter Visit Diagnoses Not on filedocumented in this encounter
--- OUTSIDE RECORDS SUMMARY | 2024-04-01 10:31 | XMS_ITS | Encounter Summary ---
Author Organization [facility] Address [address] [place] [address] Care Team Providers Care Strategic Marketing Leader Name Role Phone Unavailable Primary Care Provider Unavailabl e Encounter Details Date Type Department Care Team (Late st Contact Info) Description 10/22/2008 8:21 EDT Hospital Encounter [facility] [address] [place] [address] Brionna Stack NP [address] [facility],[address] [phone] Social History Tobacco Use Types Packs/Day Years Used Date Smoking Tobacco: Never Assessed Sex and Gender Information Value Date Recorded Sex Assigned at Not on file Gender Identity Not on file Sexual Orientation Not on file documented as of this encounter Plan of Treatment Not on file documented as of this encounter Procedures Procedure Name Priority Date/Time Associated Diagnosis Comments HPV DETECTION, HIGH RISK TYPES Routine 04/15/2009 11:00 EDT CYTOPATHOLOGY Routine 04/15/2009 0:00 EDT documented in this encounter Results * HUMAN PAPILLOMA VIRUS DNA TEST (04/15/2009 11:00 EDT) Specimen Description Cervix, ThinPrep vial [facility] Result Positive for one or more of HPV types 16,18,31,33,35 ,39,45,51,52,5 6,58,59, or 68. These high/intermedi ate risk HPV types are associated with dysplasia and some cervical cancers. [facility] Report Status Final 04/27/2009 [facility] 04/15/2009 11:0 0 EDT 04/21/2009 15:02 EDT Brionna Stack NP MICROBIOLOGY - GENER AL ORDERABLES [facility] [address] [place] [address] * CYTOPATHOLOGY (04/15/2009 0:00 EDT) Pathology Report: CYTOPATHOLOGY REPORT ? Reports generated via electronic interface contain original data; ? however they are lacking the format of the original report. ? Caution should be taken when reading/interpreti ng unformatted reports. ? Name: ? ATUL CALERO ? Accession #: ? [id number] ? : ? 1950 (Age: 58) ??F ?Collect Date: ? 04/15/2009 ? Location: ? [facility] ? Receive Date: ? 04/15/2009 ? Provider: ?BRIONNA W BESCH ECONOMIC ANALYSIS DIRECTOR ? Copy to: ? Specimen/Source: ?Pap Test, Cervix/Endocervix, ThinPrep Imaging System ? with manual evaluation ? Last Menstrual Period: ? 6 years ago ? Other: ? HPVDX - HPV testing requested regardless of diagnosis on current ThinPrep Pap ?? test. ? SPECIMEN ADEQUACY ? Satisfactory for Evaluation ? - transformation zone component present ? GENERAL CATEGORIZATION ? Negative for Intraepithelial Lesion or Malignancy ? Document reviewed and electronically signed by: ? Kaveh Schafer, CT(ASCP) ? Report Date: ??04/21/2009 11:22 ? End of Report ? [facility] 04/15/2009 04/15/2009 Brionna Stack ECONOMIC ANALYSIS DIRECTOR PATHOLOGY ORDERABLES [facility] [address] [place] [address] documented in this encounter Visit Diagnoses Not on filedocumented in this encounter
--- OUTSIDE RECORDS SUMMARY | 2024-04-01 10:31 | XMS_ITS | Encounter Summary ---
Author Organization [facility] Address [address] [place] [address] Care Team Providers Care Syrup Shed Supervisor Name Role Phone Selwyn Norris MD Primary Care Provider Selwyn Damon MD Primary Care Provider [phone] Encounter Details Date Type Department Care Team (Late st Contact Info) Description 11/09/2022 Lab Requisition [facility] Pathology & Laboratory Medicine - [address] [id number] Outr Resulting Lab, Provider Social History Tobacco Use Types Packs/Day Years Used Date Smoking Tobacco: Never Assessed Sex and Gender Information Value Date Recorded Sex Assigned at Not on file Gender Identity Not on file Sexual Orientation Not on file documented as of this encounter Plan of Treatment Not on file documented as of this encounter Procedures Procedure Name Priority Date/Time Associated Diagnosis Comments LITHIUM Routine 11/08/2022 10:45 EDT documented in this encounter Results * LITHIUM (11/08/2022 10:45 EDT) [place] 0.9 See Note mmol/L 11/09/2022 19:44 EDT [facility] Comment: 18 years and older: Therapeutic range: 0.6 - 1.2 mEq/L Potentially toxic: >1.5 mEq/L Therapeutic range not established for individuals <18 years old. Blood VENOUS BLOOD / Unknown 11/08/2022 10:45 EDT 11/09/2022 19:08 EDT Provider Outr Resulting Lab CHEMISTRY & BLOOD GAS ORDERABLES [facility] [address] [place] [address] documented in this encounter Visit Diagnoses Not on filedocumented in this encounter Care Teams Syrup Shed Supervisor Relationship Specialty Start Date End Date Selwyn Norris MD [address] [place] [address] PCP - General 02/16/09 05/04/23 Selwyn Damon MD [address] [place] [address] [place] [address] PCP - General 05/05/23 documented as of this encounter
--- OUTSIDE RECORDS SUMMARY | 2024-04-01 10:31 | XMS_ITS | Referral Summary ---
Author Organization [facility] Address [address] [place] [address] Care Team Providers Care Network Operations Technician Name Role Phone Selwyn Damon MD Primary Care Provider [phone] Social History Tobacco Use Types Packs/Day Years Used Date Smoking Tobacco: Never Assessed Sex and Gender Information Value Date Recorded Sex Assigned at Not on file Gender Identity Not on file Sexual Orientation Not on file Plan of Treatment Not on file Care Teams Network Operations Technician Relationship Specialty Start Date End Date Selwyn Damon MD [facility] [address] [place], [place] [id number] PCP - General 05/05/23
--- OUTSIDE RECORDS SUMMARY | 2024-04-01 10:31 | XMS_ITS | Encounter Summary ---
Author Organization [facility] Address [address] [place] [address] Care Team Providers Care Captain Room Service Name Role Phone Unavailable Primary Care Provider Unavailabl e Encounter Details Date Type Department Care Team (Latest Contact Info) Description 11/19/2000 11:54 EDT - 11/19/2000 11:59 EDT Hospital Encounter [facility] - Other [address] [place] [address] Christiano De León MD [address] [facility] [address] [place] [address] Unknown, Provider, Discharge Disposition: Auto Discharge Social [...] Date/Time Associated Diagnosis Comments SURGICAL PATHOLOGY Routine 11/19/2000 0:00 EDT documented in this encounter Results * SURGICAL PATHOLOGY (11/19/2000 0:00 EDT) Pathology Report: SURGICAL PATHOLOGY REPORT Reports generated via electronic interface contain original data; however they are lacking the format of the original report. Caution should be taken when reading/interpreti ng unformatted reports. Name: ? ADA ATUL ? Accession #: ? [id number] ? : ? 1950 (Age: 50) ??F ? Collect Date: ? 11/19/2000 ? Location: ? [facility] ? Receive Date: ? 11/20/2000 ? Provider: CHRISTIANO DE LEÓN MD Copy to: ? Final Pathologic Diagnosis: ? Skin of leg, right, punch biopsy: 1. ?Squamous cell carcinoma in situ. ??See comment. ? - Follicular involvement not identified. - Lesion extends to edges of punch biopsy specimen. Comment: ? The squamous cell carcinoma is pigmented. ??There is no evidence of a melanocytic proliferation. ??(Dr. Cedillo)/natalia Document reviewed and electronically signed by: Vashti Cedillo MD Report ??Date: 11/25/2000 16:50 By the signature above, the attending physician certifies that he/she has personally conducted a gross and/or microscopic examination of the described specimens and rendered or confirmed the above diagnosis. Specimen(s) Received: ? Punch bx skin Clinical History: ? Abnl mole R leg; clinical diagnosis code: 709.9 Gross Description: ? Received in formalin labelled Carpenter and punch bx is a variegated crane to crane-brown skin punch biopsy measuring 0.4 cm in diameter and excised to a depth of 0.3 cm. ??The margins of the specimen are inked and the specimen is bisected and submitted entirely in one cassette. ??(MAZIN Barry-COSME)/natalia End of Report [facility] 11/19/2000 11/20/2000 9:2 2 EDT Christiano De León MD PATHOLOGY ORDERABLE S Performing Organization Address City/State/[facility] Co de Phone Number [facility] [address] [place] [address] documented in this encounter Visit Diagnoses Not on filedocumented in this encounter
--- OUTSIDE RECORDS SUMMARY | 2024-04-01 10:31 | XMS_ITS | Encounter Summary ---
Author Organization [facility] Address [address] [place] [address] Care Team Providers Care Natural Developer Name Role Phone Selwyn Norris MD Primary Care Provider [phone] Encounter Details Date Type Department Care Team (Late st Contact Info) Description 04/25/2010 Results Only [facility] Laboratory Services - [facility] ([facility]) [address], [place] [address] Brionna Stack, KEKE [address] [facility],[address] [phone] Social History Tobacco Use Types Packs/Day Years Used Date Smoking Tobacco: Never Assessed Sex and Gender Information Value Date Recorded Sex Assigned at Not on file Gender Identity Not on file Sexual Orientation Not on file documented as of this encounter Plan of Treatment Not on file documented as of this encounter Procedures Procedure Name Priority Date/Time Associated Diagnosis Comments CYTOPATHOLOGY Routine 04/25/2010 0:00 EDT documented in this encounter Results * CYTOPATHOLOGY (04/25/2010 0:00 EDT) Pathology Report: CYTOPATHOLOGY REPORT ? Reports generated via electronic interface contain original data; ? however they are lacking the format of the original report. ? Caution should be taken when reading/interpreti ng unformatted reports. ? Name: ? ATUL CALERO ? Accession #: ? [id number] ? : ? 1950 (Age: 59) ??F ?Collect Date: ? 04/25/2010 ? Location: ? [facility] ? Receive Date: ? 04/27/2010 ? Provider: BRIONNA W BESCH JEWELRY SETTER ? Copy to: ? Final Report ? SPECIMEN ADEQUACY ? Satisfactory for Evaluation ? - transformation zone component present ? GENERAL CATEGORIZATION ? Negative for Intraepithelial Lesion or Malignancy ? Previous Gynecologic Pathology: HPV: hx ? Treatment History: Miscellaneous treatment: conization years ago ? Other: HPVDX - HPV testing requested regardless of diagnosis on current ThinPrep Pap test. ? Specimen/Source: ??Pap Test, Cervix/Endocervix, ThinPrep Imaging System with ? manual evaluation ? Document reviewed and electronically signed by: ? Karyna Carter, CT(ASCP) ? Report ??Date: 05/03/2010 14:00 ? HPV with Pap Test ? Date Ordered: ? 05/03/2010 ? Status: ?? Signed Out ?Date Complete: ? 05/04/2010 ? By: ??System Interface ? Date Reported: ? 05/04/2010 ? Interpretation ? RESULT: Negative for HPV types 16, 18, 31, 33, 35, 39, 45, 51, 52, ? 56, 58, 59, and 68. ? Comments ? Document reviewed and electronically signed by: ? System Interface ? Report date: 05/04/2010 ? By the signature above, the attending physician certifies that he/she has ? personally conducted a gross and/or microscopic examination of the described ? specimens and rendered or confirmed the above diagnosis. ? End of Report ? [facility] 04/25/2010 04/27/2010 Brionna Stack JEWELRY SETTER PATHOLOGY ORDERABLES Performing Organization Address [facility]/State/[facility] Co de Phone Number [facility] [address] [place] [address] documented in this encounter Visit Diagnoses Not on filedocumented in this encounter Care Teams Natural Developer Relationship Specialty Start Date End Date Selwyn Norris MD [address] [place] [phone] PCP - General 02/16/09 05/04/23 documented as of this encounter
--- OUTSIDE RECORDS SUMMARY | 2024-04-01 10:31 | XMS_ITS | Encounter Summary ---
Author Organization [facility] Address [address] [place] [address] Care Team Providers Care Hotel Breakfast Attendant Name Role Phone Selwyn Norris MD Primary Care Provider [phone] Encounter Details Date Type Department Care Team (Late st Contact Info) Description 05/17/2008 Before PRISM Converted Visit (Maple) [facility] - Maple conversion [address] [place], [place] [address] Jorge Estevez MD FA HOUSE STAFF MAIL [address] [place] [address] Social History Tobacco Use Types Packs/Day Years Used Date Smoking Tobacco: Never Assessed Sex and Gender Information Value Date Recorded Sex Assigned at Not on file Gender Identity Not on file Sexual Orientation Not on file documented as of this encounter Consult Notes * Jorge Estevez - 02/26/2009 0538 EDT DIVISION OF DERMATOLOGY CONSULTATION - 05/17/2008 CHIEF COMPLAINT Consult for general skin examination and for new lesion on neck. SUBJECTIVE This is a new patient visit for this 57-year-old female who is seen today in consultation from Dr. Selwyn Norris in [facility]. She has had, apparently, three squamous cell carcinomas in the past. 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 Wong. For the other two, we have no pathology and are uncertain of the exact diagnosis. Shehas had a lot of sun damage in the past and has noticed a scaly, crusty lesion on her upper chest that has been present for several months now. She states that, overall, she is in good health. However, she would like to know what this lesion is and whether we should do anything about it. PAST MEDICAL HISTORY Hypertension, arthritis and squamous cell carcinomas of the skin as noted above. MEDICATIONS Please see intake sheet. For complete past medical history, current medications, medication allergies, review of systems, family history and social history, please see the Dermatology Intake Sheet in the chart. OBJECTIVE This is a pleasant, white femalewho is seated comfortably in no acute distress. A complete cutaneous examination with the exception of the genitalia was performed. Also, the area of the inguinal lymph nodes is palpated bilaterally and no adenopathy is noted. On the sternal notch is a 2-3 mm, crusted, pink papule. On the left shoulder is a 1-cm, very lightly pigmented, rubbery, small nodule. On the left lateral lower lip is a slightly scaly, roughly 3-5 mm area. Distributed over all body surfaces are multiple, stuck-on, hyperkeratotic, crane to brown papules and plaques. Several of these are present below her breasts and are slightly irritated. Otherwise, the examination is significant for rather fair skin with a significant amount of actinic damage. There are well-healed surgical scars on the right upper and lower leg and the left lower leg. ASSESSMENT 1.of uncertain potential, sternal notch. The differential diagnosis includes irritated seborrheic keratosis versus actinic keratosis versus squamous cell carcinoma. 2. Actinic cheilitis, left lower lip. 3. Dermatofibroma, left shoulder. 4. Seborrheic keratoses. 5. Diffuse, severe actinic damage. 6. History of squamous cell carcinomas of the skin, multiple. PLAN 1.discussed the above diagnoses with the patient. We recommended performing a shave biopsy of the lesion on her chest. After informed consent, this lesion was biopsied by the shave technique. Please see the procedure note for details. The patient tolerated the procedure well. Dr. Eldridge was present for the entire procedure. Biopsy results will be followed and treatment will be undertakenas indicated. 2. We discussed the probable actinic cheilitis with the patient. We offered and recommended that she have this frozen. She did voice her preference to wait for a littlewhile because she is having guests and does not want to have the large, blistered area that will result from the liquid nitrogen cryosurgery. She is going to call us soon after the guests leave and make an appointment for this. Shevoices understanding that she should get this taken care of in the not too distant future because it is a precancerous lesion. 3. We reassured the patient as to the benign nature of her remaining lesions and the lack of evidence of recurrence of her previous squamous cell carcinomas. We did encourage, given her history and her significant sun damage, that she continue sun protection and sun avoidance techniques. 4. We will follow up in 1 year or as necessitated by the results of the biopsy for a routine skin check. We will also follow up as soon as she would like to have the liquid nitrogen cryosurgery performed on her actinic cheilitis. saw and examined the patient with the resident/fellow. I agree with the findings and plan of care documented in the resident's/fellow's note. Signed by Rita Eldridge MD 06/17/2008 17:28 Reviewed by Jorge Estevez MD 05/25/2008 12:56 Jorge Estevez MD Rita Eldridge MD - Jorge Estevez MD - RUDI Job ID: [id number] Doc ID: [id number] cc: Selwyn Norris MD - Jorge Estevez MD - RUDI Job ID: [id number] Doc ID: [id number] cc: Selwyn Norris MD documented in this encounter Plan of Treatment Not on file documented as of this encounter Visit Diagnoses Not on filedocumented in this encounter Care Teams Hotel Breakfast Attendant Relationship Specialty Start Date End Date Selwyn Norris MD [address] [place] [address] PCP - General 02/16/09 05/04/23 documented as of this encounter
[2024-04-01 11:09] LABS: Abs Immature Grans 0.03 10^3/uL (0.0-0.06); Absolute Basophil Count 0.03 10^3/uL (0.0-0.2); Absolute Eosinophil Count 0.13 10^3/uL (0.0-0.7); Absolute Lymphocyte Count 2.18 10^3/uL (1.2-3.4); Absolute Monocyte Count 0.49 10^3/uL (0.1-0.8); Absolute Neutrophil Count 4.09 10^3/uL (1.2-6.7); Basophils % 0.4 %; Eosinophils % 1.9 %; HCT 43.9 % (36.0-46.0); HGB 14.3 g/dL (11.2-15.7); Immature Grans % 0.4 %; Lymphocytes % 31.4 %; MCH 31.2 pg (27.0-33.0); MCHC 32.6 % (32.0-36.0); MCV 96 fL (80-95); MPV 10.3 fL (8.0-11.0); Monocytes % 7.1 %; Neutrophils % 58.8 %; Platelet Count 172 10^3/uL (130-400); RBC 4.59 10^6/uL (3.93-5.22); RDW 12.4 % (11.7-14.6); RDW-SD 43.7 fL; WBC 6.95 10^3/uL (4.4-10.8)
[2024-04-01 11:25] LABS: Hemoglobin A1C 5.2 % (<5.7)
[2024-04-01 11:33] LABS: ALT 32 U/L (14-59); AST 28 U/L (15-37); Alkaline Phosphatase 69 U/L (46-116); Anion Gap 6.9 mmol/L (3-11); BUN 21 mg/dL (7-18); Bilirubin, Total 0.69 mg/dL (0.2-1.0); CO2 30.1 mmol/L (21.0-32.0); CREATININE 1.2 mg/dL (0.55-1.02); Calcium 9.6 mg/dL (8.5-10.1); Chloride 107 mmol/L (98-107); Glucose 113 mg/dL (74-106); Potassium 4.1 mmol/L (3.5-5.1); Sodium 144 mmol/L (136-145); TSH 3.45 uIU/Ml (0.36-3.74); Total Protein 7.2 g/dL (6.4-8.2)
== END 2024-04-01 10:30 | disposition home or self-care (01) ==
LOC: LBO 10:30
PROVIDERS: PCP Family Medicine; Visit Provider Registered Nurse
DX: Z51.81 Encounter for therapeutic drug level monitoring (principal); F31.72 Bipolar disorder, in full remission, most recent episode hypomanic
CPT/HCPCS: 36415; 80053; 83036; 84443; 85025

== ENCOUNTER 2024-04-02 17:24 | Outpatient (REF) | payer MEDICARE, SELFPAY ==
--- OUTSIDE RECORDS SUMMARY | 2024-04-02 17:26 | XMS_ITS | Encounter Summary ---
Author Organization [facility] Address [address] [place] [address] Care Team Providers Care Joint Cutter Name Role Phone Selwyn Norris MD Primary Care Provider [phone] Encounter Details Date Type Department Care Team (Late st Contact Info) Description 05/17/2008 Before PRISM Converted Visit (Maple) [facility] - Maple conversion [address] [place], [place] [address] Jorge Estevez MD FA HOUSE STAFF MAIL [address] [place] [address] Social History Tobacco Use Types Packs/Day Years [...] Jorge Estevez MD - RUDI Job ID: [id number] Doc ID: [id number] cc: Selwyn Norris MD - Jorge Estevez MD - RUDI Job ID: [id number] Doc ID: [id number] cc: Selwyn Norris MD documented in this encounter Plan of Treatment Not on file documented as of this encounter Visit Diagnoses Not on filedocumented in this encounter Care Teams Joint Cutter Relationship Specialty Start Date End Date Selwyn Norris MD [address] [place] [address] PCP - General 02/16/09 05/04/23 documented as of this encounter
--- OUTSIDE RECORDS SUMMARY | 2024-04-02 17:26 | XMS_ITS | Encounter Summary ---
Author Organization [facility] Address [address] [place] [address] Care Team Providers Care Cigar Tobacco Rehandler Name Role Phone Selwyn Norris MD Primary Care Provider [phone] Encounter Details Date Type Department Care Team (Late st Contact Info) Description 04/25/2010 Results Only [facility] Laboratory Services - [facility] ([facility]) [address] [place], [place] [address] Brionna Stack, KEKE [address] [facility],[address] [phone] Social History Tobacco Use Types Packs/Day Years [...] ? ATUL CALERO ? Accession #: ? [id number] ? : ? 1950 (Age: 59) ??F ?Collect Date: ? 04/25/2010 ? Location: ? [facility] ? Receive Date: ? 04/27/2010 ? Provider: BRIONNA W BESCH ASSOCIATE PROFESSOR OF LITERACY ? Copy to: ? Final Report ? [...] [facility] 04/25/2010 04/27/2010 Brionna Stack ASSOCIATE PROFESSOR OF LITERACY PATHOLOGY ORDERABLES Performing Organization Address [facility]/State/[facility] Co de Phone Number [facility] [address] [place] [address] documented in this encounter Visit Diagnoses Not on filedocumented in this encounter Care Teams Cigar Tobacco Rehandler Relationship Specialty Start Date End Date Selwyn Norris MD [address] [place] [phone] PCP - General 02/16/09 05/04/23 documented as of this encounter
--- OUTSIDE RECORDS SUMMARY | 2024-04-02 17:26 | XMS_ITS | Encounter Summary ---
Author Organization [facility] Address [address] [place] [address] Care Team Providers Care Vision Specialist Name Role Phone Unavailable Primary Care Provider Unavailabl e Encounter Details Date Type Department Care Team (Latest Contact Info) Description 05/17/2008 14:48 EDT Hospital Encounter [facility] [address] [place] [address] Aleisha Eldridge MD [address] [place] [phone] Discharge Disposition: Auto Discharge Social History Tobacco [...] ? DODGE, ATUL ? Accession #: ? [id number] ? : ? 1950 (Age: 57) ??F [...] Gross Description: ? Received in formalin labelled [place] and sternal notch is a 0.7 x 0.7 x 0.1 cm skin shave of crane-white, roughened skin, trisected and entirely submitted in a single cassette. ??(Mike George)/steven ? End of Report ? [facility] 05/17/2008 05/17/2008 17: 35 EDT Aleisha Eldridge MD PATHOLOGY [facility] Organization Address City/State/[facility] Co de Phone Number [facility] [address] [place] [address] documented in this encounter Visit Diagnoses Not on filedocumented in this encounter
--- OUTSIDE RECORDS SUMMARY | 2024-04-02 17:26 | XMS_ITS | Encounter Summary ---
Author Organization [facility] Address [address] [place] [address] Care Team Providers Care Ignition Mechanic Name Role Phone Unavailable Primary Care Provider Unavailabl e Encounter Details Date Type Department Care Team (Latest Contact Info) Description 12/09/2000 10:34 EDT - 12/09/2000 11:59 EDT Hospital Encounter [facility] - Other [address] [place] [address] Graciela Cherry MD Unknown, Provider, Discharge Disposition: [...] ? ATUL CALERO ? Accession #: ? [id number] : ? 1950 (Age: 50) ??F ?Collect [...] End of Report [facility] 12/09/2000 12/10/2000 Garciela Cherry MD PATHOLOGY OR DERABLES [facility] [address] [place] [address] documented in this encounter Visit Diagnoses Not on filedocumented in this encounter
--- OUTSIDE RECORDS SUMMARY | 2024-04-02 17:26 | XMS_ITS | Encounter Summary ---
Author Organization [facility] Address [address] [place] [address] Care Team Providers Care Structural Drafter Name Role Phone Unavailable Primary Care Provider Unavailabl e Encounter Details Date Type Department Care Team (Late st Contact Info) Description 10/22/2008 8:21 EDT Hospital Encounter [facility] [address] [place] [address] Brionna Stack NP [address] [facility],[address] [phone] Social History Tobacco Use Types [...] GENER AL ORDERABLES [facility] [address] [place] [address] * CYTOPATHOLOGY (04/15/2009 0:00 EDT) Pathology Report: CYTOPATHOLOGY REPORT ? Reports generated via electronic interface contain original data; ? however they are lacking the format of the original report. ? Caution should be taken when reading/interpreti ng unformatted reports. ? Name: ? ATUL CALERO ? Accession #: ? [id number] ? : ? 1950 (Age: 58) ??F ?Collect Date: ? 04/15/2009 ? Location: ? [facility] ? Receive Date: ? 04/15/2009 ? Provider: ?BRIONNA W BESCH GATE CLERK ? Copy to: ? Specimen/Source: ?Pap Test, [...] ? [facility] 04/15/2009 04/15/2009 Brionna Stack GATE CLERK PATHOLOGY ORDERABLES [facility] [address] [place] [address] documented in this encounter Visit Diagnoses Not on filedocumented in this encounter
--- OUTSIDE RECORDS SUMMARY | 2024-04-02 17:26 | XMS_ITS | Encounter Summary ---
Author Organization [facility] Address [address] [place] [address] Care Team Providers Care Stringed Instrument Repairer Name Role Phone Selwyn Norris MD Primary Care Provider [phone] Encounter Details Date Type Department Care Team (Late st Contact Info) Description 04/22/2008 Before PRISM Converted Visit (Maple) [facility] - Maple conversion [address] [place] [address] Brionna Stack, LAMP SHADES SUPERVISOR [address] [facility],[address] [phone] Social History Tobacco Use Types Packs/Day Years [...] ? ATUL CALERO ? Accession #: ? [id number] ? : ? 1950 (Age: 57) ??F [...] [facility] 04/22/2008 04/26/2008 Brionna Stack LAMP SHADES SUPERVISOR PATHOLOGY ORDERABLES Performing Organization Address City/State/[facility] Co de Phone Number [facility] [address] [place] [address] documented in this encounter Visit Diagnoses Not on filedocumented in this encounter Care Teams Stringed Instrument Repairer Relationship Specialty Start Date End Date Selwyn Norris MD [address] [place] [address] PCP - General 02/16/09 05/04/23 documented as of this encounter
--- OUTSIDE RECORDS SUMMARY | 2024-04-02 17:26 | XMS_ITS | Encounter Summary ---
Author Organization [facility] Address [address] [place] [address] Care Team Providers Care Book Trimmer Name Role Phone Unavailable Primary Care Provider Unavailabl e Encounter Details Date Type Department Care Team (Latest Contact Info) Description 11/19/2000 11:54 EDT - 11/19/2000 11:59 EDT Hospital Encounter [facility] - Other [address] [place] [address] Christiano De León MD [address] [facility] [address] [place] [address] Unknown, Provider, Discharge Disposition: Auto [...] ? ADA ATUL ? Accession #: ? [id number] ? : ? 1950 (Age: 50) ??F [...] Gross Description: ? Received in formalin labelled [place] and punch bx is a variegated crane [...] MD PATHOLOGY ORDERABLE S Performing Organization Address City/State/[facility] Co de Phone Number [facility] [address] [place] [address] documented in this encounter Visit Diagnoses Not on filedocumented in this encounter
--- OUTSIDE RECORDS SUMMARY | 2024-04-02 17:26 | XMS_ITS | Referral Summary ---
Author Organization [facility] Address [address] [place] [address] Care Team Providers Care Men'S Furnishings Salesperson Name Role Phone Selwyn Damon MD Primary Care Provider [phone] Social History Tobacco Use Types Packs/Day Years Used Date Smoking Tobacco: Never Assessed Sex and Gender Information Value Date Recorded Sex Assigned at Not on file Gender Identity Not on file Sexual Orientation Not on file Plan of Treatment Not on file Care Teams Men'S Furnishings Salesperson Relationship Specialty Start Date End Date Selwyn Damon MD [facility] [address] [place], [place] [address] PCP - General 05/05/23
--- OUTSIDE RECORDS SUMMARY | 2024-04-02 17:26 | XMS_ITS | Encounter Summary ---
Author Organization [facility] Address [address] [place] [address] Care Team Providers Care Pearl Maker Name Role Phone Unavailable Primary Care Provider Unavailabl e Encounter Details Date Type Department Care Team (Latest Contact Info) Description 07/17/2008 14:[address] [facility] [address] [place] [address] Selwyn Norris MD [address] [place] [phone] Discharge Disposition: Auto Discharge Social History Tobacco [...]
--- OUTSIDE RECORDS SUMMARY | 2024-04-02 17:26 | XMS_ITS | Encounter Summary ---
Author Organization [facility] Address [address] [place] [address] Care Team Providers Care Etl Bi Developer Name Role Phone Selwyn Norris MD Primary Care Provider [phone] Selwyn Damon MD Primary Care Provider [phone] Encounter Details Date Type Department Care Team (Late st Contact Info) Description 11/09/2022 Lab Requisition [facility] Pathology & Laboratory Medicine - [address] [id number] Outr Resulting Lab, Provider Social History Tobacco [...] encounter Results * LITHIUM (11/08/2022 10:45 EDT) [place] 0.9 See Note mmol/L 11/09/2022 19:44 EDT [facility] Comment: 18 years and older: Therapeutic range: 0.6 - 1.2 mEq/L Potentially toxic: >1.5 mEq/L Therapeutic range not established for individuals <18 years old. Blood VENOUS BLOOD / Unknown 11/08/2022 10:45 EDT 11/09/2022 19:08 EDT Provider Outr Resulting Lab CHEMISTRY & BLOOD GAS ORDERABLES [facility] [address] [place] [address] documented in this encounter Visit Diagnoses Not on filedocumented in this encounter Care Teams Etl Bi Developer Relationship Specialty Start Date End Date Selwyn Norris MD [address] [place] [address] PCP - General 02/16/09 05/04/23 Selwyn Damon MD [address] [place] [address] [place] [address] PCP - General 05/05/23 documented as of this encounter
--- OUTSIDE RECORDS SUMMARY | 2024-04-02 17:26 | XMS_ITS | Encounter Summary ---
Author Organization [facility] Address [address] [place] [address] Care Team Providers Care Prepress Supervisor Name Role Phone Unavailable Primary Care Provider Unavailabl e Encounter Details Date Type Department Care Team (Late st Contact Info) Description 10/22/2008 Before PRISM Converted Visit (Maple) [facility] - Maple conversion [address] [place] [address] Brionna Stack NP [address] [facility],[address] [phone] Social History Tobacco Use Types [...] [facility] Comment: Desirable:<200 Borderline High:200-239 High:>na=421 Triglycerides 92 35 - 160 mg/dl [facility] HDL 64 mg/dl [facility] Comment: Low:<40 High(Desirable):>or=60 LDL, Calculated 67 mg/dl [facility] Comment: Optimal:<100 Above optimal:100-129 Borderline High:130-159 High:160-189 Very High:>gc=667 Chol/HDL Ratio 2.3 [facility] Fasting? Yes [facility] 10/22/2008 8:26 EDT 10/22/2008 8:54 EDT Brionna Stack NP CHEMISTRY & BLOOD GA S ORDERABLES Performing Organization Address City/State/[facility] Co de Phone Number [facility] [address] [place] [address] documented in this encounter Visit Diagnoses Not on filedocumented in this encounter
--- OUTSIDE RECORDS SUMMARY | 2024-04-02 17:26 | XMS_ITS | Encounter Summary ---
Author Organization [facility] Address [address] [place] [address] Care Team Providers Care Computer Repair Instructor Name Role Phone Unavailable Primary Care Provider Unavailabl e Encounter Details Date Type Department Care Team (Latest Contact Info) Description 08/24/2000 8:44 EST - 08/24/2000 11:59 EST Hospital Encounter [facility] Emergency Department - Main [place] [address] [place], [place] [id number] Emergency, Default, MD Discharge Disposition: Home or [...] the Emergency Room. /ts Jorden Arguello MD [facility] ORDERABLES * CT ABDOMEN W/CONTRAST (08/24/2000 11:07 EST) Anatomical Region Laterality Modality Other 08/24/2000 11:0 7 EST Narrative 06/15/2009 1:19 EST LLQ PAIN X 5 DAYS ??R/O DIVERTICULITIS Procedure Note Jack Woodall MD / Lisette Barron MD - 06/15/2009 LLQ PAIN X 5 DAYS R/O DIVERTICULITIS Jorden Arguello MD [facility] ORDERABLES * (ABNORMAL) HEMAGRAM [...] FOR SQ LOAD [facility] [address] [place] [address] documented in this encounter Visit Diagnoses Not on filedocumented in this encounter
--- OUTSIDE RECORDS SUMMARY | 2024-04-02 17:26 | XMS_ITS | Encounter Summary ---
Author Organization [facility] Address [address] [place] [address] Care Team Providers Care Bundle Clerk Name Role Phone Unavailable Primary Care Provider Unavailabl e Encounter Details Date Type Department Care Team (Latest Contact Info) Description 08/31/2000 0:06 EST - 08/31/2000 11:59 EST Hospital Encounter [facility] Emergency Department - Main [place] [address] [place], [place] [id number] Emergency, Default, MD Discharge Disposition: Home or [...]
--- OUTSIDE RECORDS SUMMARY | 2024-04-02 17:26 | XMS_ITS | Encounter Summary ---
Author Organization [facility] Address [address] [place] [address] Care Team Providers Care Evs Tech Name Role Phone Unavailable Primary Care Provider Unavailabl e Encounter Details Date Type Department Care Team (Late st Contact Info) Description 06/21/2000 10:09 EST Hospital Encounter [facility] - Other [address] [place] [address] Christiano De León MD [address] [place] [address] [address] [place] [address] Unknown, Provider, Social History Tobacco [...] ? ATUL CALERO ? Accession #: ? [id number] : ? 1950 (Age: 49) ??F ?Collect Date: ? 06/21/2000 Location: ? [facility] ? Receive Date: ? 06/25/2000 Provider: ?CHRISTIANO DE LEÓN MD Copy to: ?ORIANA MCKEON CLEARING SUPERVISOR ? Specimen/Source: ?ThinPrep Pap Test, Vagina/Endocervix Last [...] PATHOLOGY ORDERABLE S [facility] [address] [place] [address] documented in this encounter Visit Diagnoses Not on filedocumented in this encounter
--- OUTSIDE RECORDS SUMMARY | 2024-04-02 17:26 | XMS_ITS | Encounter Summary ---
Author Organization [facility] Address [address] [place] [address] Care Team Providers Care Healthcare Applications Analyst Name Role Phone Unavailable Primary Care Provider Unavailabl e Encounter Details Date Type Department Care Team (Latest Contact Info) Description 08/26/2000 17:56 EST Hospital Encounter [facility] Emergency Department - [place] [address], [place] [id number] Emergency, Default, MD Discharge Disposition: Home or [...]
--- OUTSIDE RECORDS SUMMARY | 2024-04-02 17:26 | XMS_ITS | Encounter Summary ---
Author Organization [facility] Address [address] [place] [address] Care Team Providers Care Pediatric Physiatrist Name Role Phone Selwyn Damon MD Primary Care Provider [phone] Encounter Details Date Type Department Care Team (Late st Contact Info) Description 05/29/2023 Lab Requisition [facility] Pathology & Laboratory Medicine - [facility] [address] [place] [address] Selwyn Damon MD [address] [place] [id number] Squamous cell carcinoma of skin, unspecified [...] management options, if applicable. 05/30/2023 10:[address] [facility] Final Diagnosis A. SKIN OF LEG, LEFT LOWER, EXCISION: - Scar and biopsy site change; no residual carcinoma. 05/30/2023 10:48 [facility] Attestation By the signature below, the attending physician certifies that they have 1) personally conducted a gross and/or microscopic examination of the described specimen(s), and/or personally interpreted the results of laboratory testing of the described specimen(s), and 2) personally rendered or confirmed the above diagnosis. 05/30/2023 10:48 [facility] at 1048 Clinical History Scab at base of wound from previous SCC; clinical diagnosis code: C44.92 05/30/2023 10:48 [facility] Gross Description A. Received in [...] face Britt Hunter 05/29/2023 11:44 05/30/2023 10:48 [facility] Performing Lab [facility] 05/30/2023 10:48 [facility] Scanned Images 05/30/2023 10:48 [facility] Tissue SPECIMEN FROM SKIN / Unknown 05/28/2023 16:00 EDT 05/29/2023 8:47 EDT Selwyn Damon MD PATHOLOGY ORDERABLES [facility] [address] [place] [address] documented in this encounter Visit Diagnoses Diagnosis Squamous cell carcinoma of skin, unspecified documented in this encounter Care Teams Pediatric Physiatrist Relationship Specialty Start Date End Date Selwyn Damon MD [address] [place] [address] [place] [address] PCP - General 05/05/23 documented as of this encounter
--- OUTSIDE RECORDS SUMMARY | 2024-04-02 17:26 | XMS_ITS | Clinical Summary ---
Author Organization [facility] Address [address] [place] [address] Care Team Providers Care Physical Medicine Specialist Name Role Phone Selwyn Damon MD Primary Care Provider [phone] Social History Tobacco Use Types Packs/Day Years [...] COVID-19 Vaccine ( season) 2023 Care Teams Physical Medicine Specialist Relationship Specialty Start Date End Date Selwyn Damon MD [facility] [facility] [place] [address] PCP - General 05/05/23
--- OUTSIDE RECORDS SUMMARY | 2024-04-02 17:26 | XMS_ITS | Encounter Summary ---
Author Organization [facility] Address [address] [place] [address] Care Team Providers Care Apparatus Lineman Name Role Phone Unavailable Primary Care Provider Unavailabl e Encounter Details Date Type Department Care Team (Late st Contact Info) Description 10/17/2000 17:40 EST Hospital Encounter [facility] - Other [address] [place] [address] Christiano De León MD [address] [place] [address] [address] [place] [address] Unknown, Provider, Social History Tobacco [...] ? ATUL CALERO ? Accession #: ? [id number] : ? 1950 (Age: 50) ??F ?Collect [...] electronically signed by: ? JARED BECERRIL MD [facility] ? Report Date: ??10/23/2000 17:21 End of Report [facility] 10/17/2000 10/18/2000 Christiano De León MD PATHOLOGY ORDERABLE S [facility] [address] [place] [address] documented in this encounter Visit Diagnoses Not on filedocumented in this encounter
[2024-04-02 20:03] LABS: COMMENT (LAB VIEW ONLY) 184.93 mg/dL; Microalb ug/mg Crea 23.4 ug/mg Cr
== END 2024-04-02 17:25 | disposition home or self-care (01) ==
LOC: NCHCN 17:24
PROVIDERS: PCP Family Medicine; Visit Provider Student in an Organized Health Care Education/Training Program
DX: E88.09 Other disorders of plasma-protein metabolism, not elsewhere classified (principal)
CPT/HCPCS: 82043; 82570

== ENCOUNTER 2024-11-06 00:34 | Outpatient (CLI) | payer MEDICARE, SELFPAY ==
--- NOTE | 2024-11-06 13:28 | DI.RAD_ITS ---
Exam(s) XR CERVICAL SPINE COMP 4-5V EXAM: XR CERVICAL SPINE COMP 4-5V CLINICAL HISTORY: Pain in rt arm, M79.601. TECHNIQUE: 2D digital imaging was performed. COMPARISON: No exams were available for comparison FINDINGS: Five views. No evidence of fracture, listhesis, nor offset of the spinal laminar line. There is moderate disc space narrowing at C4-5, C5-6, and C6-7 levels. There are small bilateral Shantelle chka joint osteophytes at these levels. No cervical ribs. No osseous lesions. IMPRESSION: Multilevel degenerative disc disease as described above. DATA REPOSITORY: RADIATION DOSE DELIVERED:
== END 2024-11-06 00:54 ==
PROVIDERS: PCP Student in an Organized Health Care Education/Training Program; Visit Provider Student in an Organized Health Care Education/Training Program
DX: M50.021 Cervical disc disorder at C4-C5 level with myelopathy (principal); M50.022 Cervical disc disorder at C5-C6 level with myelopathy; M50.023 Cervical disc disorder at C6-C7 level with myelopathy
CPT/HCPCS: 72050

== ENCOUNTER 2024-12-11 00:35 | Outpatient (CLI) | payer MEDICARE, SELFPAY ==
--- NOTE | 2024-12-11 | DI.MRI_ITS ---
Exam(s) MR CERVICAL SPINE WO EXAM: MR CERVICAL SPINE WO CLINICAL HISTORY: CERVICAL DISC DISORDER W/MYELOPATHY, FU C SPINE XR 11/06/24 SEE REPORT TECHNIQUE: Multiplanar multisequence MRI of the cervical spine was performed without intravenous con trast. COMPARISON: CR XR CERVICAL SPINE COMP 4-5V from 11/06/2024 FINDINGS: CERVICOMEDULLARY JUNCTION: Intact with no evidence of cerebellar tonsillar ectopia. No obvious abnor mality of the odontoid process. No evidence of Chiari 1 malformation. CERVICAL SPINAL CORD: There is no abnormal signal in the cervical spinal cord and no evidence of foca l cord atrophy nor focal cord swelling. OSSEOUS:There are no cervical fractures evident. No significant osseous lesions in the cervical vert ebrae. INDIVIDUAL DISC SPACE LEVELS: C2-3: No disc herniation nor central canal stenosis. No foraminal stenosis. Left facet joint unrema rkable. Mild-moderate degenerative changes are noted in the right facet joint. No significant elisabet inal stenosis at this level. C3-4: Normal disc height. No significant disc herniation. Central canal dimensions are lower normal . There is some facet arthropathy more so on the right side at this level. No significant foraminal stenosis. C4-5: This level exhibits chronic disc space narrowing and anterior osseous lipping. Posteriorly the re is some annular bulging and bilateral Luschka joint osteophytes. Central canal dimensions are low er normal. Left facet joint unremarkable. Moderate degenerative changes in the right facet joint no sumanth. There is moderate bilateral foraminal stenosis at this level. C5-6: This level exhibits mild disc height loss. Very mild anterolisthesis C5 upon C6. No disc jessica iation. No central canal stenosis. Left facet joint unremarkable. Moderate-advanced degenerative c hange in the right facet joint. Moderate foraminal stenosis on the right side. No significant elisabet inal stenosis on the left side. C6-7: Mild-moderate disc space narrowing. Bilateral Luschka joint osteophytes. Posteriorly there is no disc herniation central canal dimensions are within normal limits. Facet joints appear unremarka ble. There is mild bilateral foraminal stenosis. C7-T1: No disc herniation nor central canal stenosis. Mild facet arthropathy bilaterally but no signi ficant foraminal stenosis. T1-2: There normal disc height. There is a central subligamentous disc protrusion at this level which extends posteriorly 2 mm and is approximately 4 mm wide. This slightly indents the anterior thecal s ac but not the spinal cord. There is no appreciable extension of disc herniation into the exiting delphine ral foramina and there is no foraminal stenosis on either side at this level. Facet joints appear unr emarkable at this level. IMPRESSION: 1. Multilevel mild findings as described individually above. There is no prominent disc herniation no r prominent central canal stenosis. Central canal dimensions are lower normal at C4-5 level and there is moderate bilateral foraminal stenosis at this level. 2. Other findings as above. 3. Please note that there is also a small disc herniation in the partially visualized upper thoracic spine at T1-T2 level. At this level there is a small central subligamentous disc protrusion as descri bed above. DATA REPOSITORY:
== END 2024-12-11 00:55 ==
LOC: DI 00:35
PROVIDERS: PCP Student in an Organized Health Care Education/Training Program; Visit Provider Student in an Organized Health Care Education/Training Program
DX: M48.062 Spinal stenosis, lumbar region with neurogenic claudication (principal)
CPT/HCPCS: 72141

== ENCOUNTER 2024-12-18 00:07 | Outpatient (CLI) | payer MEDICARE, SELFPAY ==
--- NOTE | 2024-12-18 | DI.DEXA_ITS ---
Exam(s) XR DEXA BONE DENSITY W/WO SARA EXAM: XR DEXA BONE DENSITY W/WO SARA CLINICAL HISTORY: ASYMPTOMATIC MENOPAUSAL STATE Z78.0 POSTMENOPAUSAL SCREENING OSTEOPOROSIS, TECHNIQUE: Routine DEXA evaluation of the lumbar spine, hip, or forearm. COMPARISON: No exams were available for comparison FINDINGS: Performed on a Hologic unit. Lateral image: No compression fracture evident. Lumbar Spine total T-score: 0.6 (which is in normal range) Hip total T-score:Not done due to bilateral hip prostheses. Forearm total T-score: -2.0 (which is in osteopenia range) IMPRESSION: Bone mineral density measures in the normal range for the lumbar spine but osteopenia range at the wr ist-forearm. Range. Fracture risk is low-moderate Note: Any spine fracture indicates 5x risk for subsequent spine fracture and 2x risk for subsequent h ip fracture. World Health Organization criteria for BMD interpretation classify patients: Normal...... T- Score at or above -1.0 Osteopenic... T- Score between -1.0 and -2.5 Osteoporosis... T-Score at or below -2.5
== END 2024-12-18 00:27 ==
LOC: DI 00:08
PROVIDERS: PCP Student in an Organized Health Care Education/Training Program; Visit Provider Student in an Organized Health Care Education/Training Program
DX: Z78.0 Asymptomatic menopausal state (principal); Z13.820 Encounter for screening for osteoporosis; M85.89 Other specified disorders of bone density and structure, multiple sites
CPT/HCPCS: 77080

== ENCOUNTER 2025-01-20 08:16 | Outpatient (CLI) | payer MEDICARE, SELFPAY ==
[2025-01-23 00:45] LABS: Valproic Acid, Free 11 mcg/mL (5 - 25); Valproic Acid, Total 69 mcg/mL (50 - 125)
== END 2025-01-20 08:17 | disposition home or self-care (01) ==
LOC: LBO 08:17
PROVIDERS: PCP Student in an Organized Health Care Education/Training Program; Visit Provider Student in an Organized Health Care Education/Training Program
DX: F31.9 Bipolar disorder, unspecified (principal)
CPT/HCPCS: 36415; 80165

== ENCOUNTER 2025-02-19 14:41 | Outpatient (CLI) | payer MEDICARE, SELFPAY ==
[2025-02-19 13:39] LABS: Abs Immature Grans 0.04 10^3/uL (0.0-0.06); HCT 41.9 % (36.0-46.0); HGB 13.7 g/dL (11.2-15.7); Immature Grans % 0.4 %; MCH 30.4 pg (27.0-33.0); MCHC 32.7 % (32.0-36.0); MCV 93 fL (80-95); MPV 10.0 fL (8.0-11.0); Platelet Count 203 10^3/uL (130-400); RBC 4.50 10^6/uL (3.93-5.22); RDW 12.7 % (11.7-14.6); RDW-SD 43.5 fL; WBC 8.93 10^3/uL (4.4-10.8)
[2025-02-19 13:45] LABS: Hemoglobin A1C 5.3 % (<5.7)
[2025-02-19 14:24] LABS: ALT 35 U/L (14-59); AST 23 U/L (15-37); Albumin 3.3 g/dL (3.4-5.0); Alkaline Phosphatase 76 U/L (46-116); Anion Gap 7.2 mmol/L (3-11); BUN 17 mg/dL (7-18); Bilirubin, Total 0.7 mg/dL (0.2-1.0); CO2 29.8 mmol/L (21.0-32.0); Calcium 9.3 mg/dL (8.5-10.1); Calculated LDL 53 mg/dL (<100); Chloride 104 mmol/L (98-107); Cholesterol 140 mg/dL (<200); Estimated GFR 52.73 (mL/min/1.73m2); Glucose 112 mg/dL (74-106); HDL Cholesterol 67 mg/dL (>or=50); Potassium 4.1 mmol/L (3.5-5.1); Sodium 141 mmol/L (136-145); TSH 1.46 uIU/mL (0.36-3.74); Total Protein 7.5 g/dL (6.4-8.2); Triglyceride 100 mg/dL (<150); Vitamin D 25 Total 68 ng/mL (30-100)
== END 2025-02-19 14:42 | disposition home or self-care (01) ==
LOC: LBO 14:41
PROVIDERS: PCP Student in an Organized Health Care Education/Training Program; Visit Provider Registered Nurse
DX: E66.9 Obesity, unspecified (principal); Z51.81 Encounter for therapeutic drug level monitoring; F31.72 Bipolar disorder, in full remission, most recent episode hypomanic; N18.30 Chronic kidney disease, stage 3 unspecified
CPT/HCPCS: 36415; 80053; 80061; 82306; 80164; 83036; 84443; 85025

== ENCOUNTER 2025-04-21 16:49 | Outpatient (REF) | payer MEDICARE, SELFPAY ==
[2025-04-21 22:42] LABS: Microalb ug/mg Crea 17.7 ug/mg Cr
== END 2025-04-21 16:50 | disposition home or self-care (01) ==
LOC: NCHCN 16:49
PROVIDERS: PCP Student in an Organized Health Care Education/Training Program; Visit Provider Student in an Organized Health Care Education/Training Program
DX: I10 Essential (primary) hypertension (principal)
CPT/HCPCS: 82043; 82570

== ENCOUNTER 2025-05-28 14:53 | Outpatient (CLI) | payer MEDICARE, SELFPAY ==
[2025-05-28 14:36] LABS: Hemoglobin A1C 5.3 % (<5.7)
[2025-05-28 16:34] LABS: ALT 26 U/L (14-59); AST 20 U/L (15-37); Albumin 3.1 g/dL (3.4-5.0); Alkaline Phosphatase 89 U/L (46-116); Anion Gap 9.6 mmol/L (3-11); BUN 18 mg/dL (7-18); Bilirubin, Total 0.8 mg/dL (0.2-1.0); CO2 29.4 mmol/L (21.0-32.0); Calcium 9.7 mg/dL (8.5-10.1); Chloride 104 mmol/L (98-107); Estimated GFR 47.50 (mL/min/1.73m2); Glucose 88 mg/dL (74-106); Potassium 4.4 mmol/L (3.5-5.1); Sodium 143 mmol/L (136-145); Total Protein 7.5 g/dL (6.4-8.2)
== END 2025-05-28 14:54 | disposition home or self-care (01) ==
LOC: LBO 14:54
PROVIDERS: PCP Student in an Organized Health Care Education/Training Program; Visit Provider Registered Nurse
DX: F31.72 Bipolar disorder, in full remission, most recent episode hypomanic (principal); N18.30 Chronic kidney disease, stage 3 unspecified; E66.9 Obesity, unspecified
CPT/HCPCS: 36415; 80053; 80164; 83036

== ENCOUNTER 2025-07-12 13:13 | Outpatient (REF) | payer MEDICARE, SELFPAY ==
[2025-07-12 16:12] LABS: Abs Immature Grans 0.05 10^3/uL (0.0-0.06); HCT 44.5 % (36.0-46.0); HGB 14.5 g/dL (11.2-15.7); Immature Grans % 0.5 %; MCH 31.0 pg (27.0-33.0); MCHC 32.6 % (32.0-36.0); MCV 95 fL (80-95); MPV 11.1 fL (8.0-11.0); Platelet Count 203 10^3/uL (130-400); RBC 4.68 10^6/uL (3.93-5.22); RDW 12.8 % (11.7-14.6); RDW-SD 45.1 fL; WBC 9.66 10^3/uL (4.4-10.8)
[2025-07-12 16:15] LABS: ESR 21 mm/hr (0-30)
[2025-07-12 16:29] LABS: C-Reactive Protein 0.76 mg/dL (<=0.50)
[2025-07-12 16:31] LABS: ALT 21 U/L (10-49); AST 25 U/L (<34); Albumin 3.9 g/dL (3.2-5.0); Alkaline Phosphatase 76 U/L (46-116); Anion Gap 9.7 mmol/L (3-11); BUN 15 mg/dL (9-23); Bilirubin, Total 0.80 mg/dL (0.2-1.2); CO2 29.3 mmol/L (20.0-31.0); Calcium 9.5 mg/dL (8.3-10.6); Chloride 106 mmol/L (98-107); Glucose 89 mg/dL (74-106); Potassium 4.7 mmol/L (3.5-5.1); Sodium 145 mmol/L (136-145); Total Protein 7.0 g/dL (5.7-8.2)
== END 2025-07-12 13:14 | disposition home or self-care (01) ==
LOC: NCHCN 13:13
PROVIDERS: PCP Student in an Organized Health Care Education/Training Program; Visit Provider Student in an Organized Health Care Education/Training Program
DX: R29.818 Other symptoms and signs involving the nervous system (principal)
CPT/HCPCS: 80053; 85652; 85025; 86140

== ENCOUNTER 2025-07-21 20:00 | Outpatient (REF) | payer MEDICARE, SELFPAY ==
[2025-07-21 22:17] LABS: WBC >50 HPF (0-5)
== END 2025-07-21 20:01 | disposition home or self-care (01) ==
LOC: LBN 20:00
PROVIDERS: PCP Student in an Organized Health Care Education/Training Program; Visit Provider Physician Assistant Medical
DX: R30.0 Dysuria (principal)
CPT/HCPCS: 81015; 87086

== ENCOUNTER → 2025-08-03 07:48 | Outpatient (CLI) | payer MEDICARE, SELFPAY ==
--- NOTE | 2025-08-03 | DI.MRI_ITS ---
Exam(s) MR ANGIO NECK WO EXAM: MR ANGIO NECK WO CLINICAL HISTORY: TRANSIENT NEURO SYMPTOMS R29.818 ?TIA SOME MEMORY LOSS MILD CAROTID. TECHNIQUE: 2D and 3D [id number] MRA of the Neck was performed. COMPARISON: No exams were available for comparison FINDINGS: Common Carotid: Right: No dissection, occlusion or significant stenosis. Left: No dissection, occlusion or significant stenosis. External Carotid: Right: No evidence of occlusion or significant stenosis. Left: No evidence of occlusion or significant stenosis. Internal Carotid: Right: No dissection, occlusion or significant stenosis. Left: No dissection, occlusion or significant stenosis. Vertebral Artery: Right: No dissection, occlusion or significant stenosis. Left: No dissection, occlusion or significant stenosis. The visualized paraspinal soft tissues are unremarkable. IMPRESSION: No evidence of dissection, occlusion or significant stenosis. DATA REPOSITORY:
--- NOTE | 2025-08-03 | DI.MRI_ITS ---
Exam(s) MR ANGIO BRAIN WO CLINICAL HISTORY: TRANSIENT NEURO SYMPTOMS R29.818 ?TIA SOME MEMORY LOSS MILD CAROTID. TECHNIQUE: 3D [id number] study was performed without contrast. COMPARISON: Brain MRI of the same day FINDINGS: Carotid Arteries: Petrous: Normal. Cavernous: Normal. Cerebral: Normal. Middle Cerebral Arteries: Right: No aneurysm or significant stenosis. Left: No aneurysm or significant stenosis. Anterior Cerebral Arteries: Right: No aneurysm or significant stenosis. Left: No aneurysm or significant stenosis. Posterior cerebral arteries: Right: No aneurysm or significant stenosis Left: No aneurysm or significant stenosis Vertebral Arteries: Right: No aneurysm or significant stenosis. No dissection. Left: No aneurysm or significant stenosis. No dissection.. Basilar Artery: No aneurysm or significant stenosis. Small Vessels: No evidence of beading. IMPRESSION: Normal MRA examination of the [place] of [place]. DATA REPOSITORY:
--- NOTE | 2025-08-03 | DI.MRI_ITS ---
Exam(s) MR BRAIN WO EXAM: MR BRAIN WO CLINICAL HISTORY: TRANSIENT NEURO SYMPTOMS R29.818 ?TIA SOME MEMORY LOSS MILD CAROTID. TECHNIQUE: Multiplanar multisequence MRI of the brain was performed. CONTRAST MATERIAL: Noncontrast COMPARISON: MR MR ANGIO BRAIN WO from 08/03/2025 FINDINGS: VENTRICLES AND EXTRA AXIAL SPACES: Normal in size and morphology for the patient's degree of atrophy. HEMORRHAGE: None. CEREBRAL PARENCHYMA: Moderate atrophy. Moderate to severe areas of high signal in the white matter likely reflecting chronic microvascular disease. No focus of restricted diffusion to suggest acute infarct. No space-occupying lesion identified. BRAINSTEM/CEREBELLUM: Normal. CALVARIUM: Normal. VISUALIZED PARANASAL SINUSES/MASTOIDS: Clear. Orbits: Unremarkable. Pituitary: Not enlarged. Vasculature: Normal flow voids. IMPRESSION: Moderate atrophy. Moderate to severe white matter changes likely reflecting chronic microvascular ischemia. DATA REPOSITORY:
== END ==
LOC: DI 07:48
PROVIDERS: PCP Student in an Organized Health Care Education/Training Program; Visit Provider Student in an Organized Health Care Education/Training Program
DX: R29.818 Other symptoms and signs involving the nervous system (principal)
CPT/HCPCS: 70544; 70547; 70551

== ENCOUNTER 2025-08-03 09:23 | Emergency (ER) | payer MEDICARE, SELFPAY ==
[2025-08-03 09:26] VITALS: BP 143/64; PULSE 77; RESP 16; TEMP 36.2; O2SAT 95
--- NOTE | 2025-08-03 09:30 | DI.RAD_ITS ---
Exam(s) XR KNEE LT 3V AP,LAT,ERIC EXAM: XR KNEE LT 3V AP,LAT,ERIC CLINICAL HISTORY: pain s/p fall. TECHNIQUE: 2D digital imaging was performed. Three views. COMPARISON: CR XR KNEE LT 2V AP,LAT from 07/15/2023 FINDINGS: BONES: No acute fracture is present. No bony destructive lesion is seen. There is an exostosis from the medial femoral condyle. JOINTS: The knee prosthesis is normally aligned. No joint effusion is seen. SOFT TISSUE: Calcifications are again noted in the distal quadriceps tendon. IMPRESSION: Stable appearance of total knee prosthesis. No acute abnormalities identified. DATA REPOSITORY: RADIATION DOSE DELIVERED:
--- NOTE | 2025-08-03 09:42 | W.ED.GENAD ---
Discharge Plan Disposition Patient Disposition: Home Condition: Stable Discharge Details Clinical Impression: Contusion of knee, left, AMS (altered mental status) Primary Care Provider: Dale Campos ED Provider: Andres Landers Home Meds and New Rx's Prescriptions: Continued carvedilol 3.125 mg tablet 3.125 mg PO BID Rx Instructions: must administer with a meal/food losartan 50 mg tablet 50 mg PO DAILY divalproex [Depakote] 500 mg tablet,delayed release (DR/EC) 500 mg PO QHS cyanocobalamin (vitamin B-12) 1,000 mcg tablet 1,000 mcg PO DAILY acetaminophen 500 mg tablet 500 mg PO Q6H PRN (Reason: pain) Qty: 60 2RF calcium carbonate [Oyster Shell Calcium 500] 500 mg calcium (1,250 mg) Tablet 1.25 g PO DAILY Qty: 0 0RF cholecalciferol (vitamin D3) 25 mcg (1,000 unit) Tablet 5,000 unit PO DAILY Qty: 0 0RF Discharge Instructions Additional Instructions: Your lab work and x-ray did not show any concerning findings at this time. Follow-up with your primary care provider within 1 to 2 weeks. If you feel more ill or have new symptoms such as difficulty breathing or high fevers return to emergency department for reevaluation. Stand Alone Forms: Portal Information HPI General Date/Time Provider Initiated Documentation: 08/03/25 09:25. Limitations to Documentation: no limitations. Information obtained by: patient. History of Present Illness 74 year old F presents to the emergency department with the chief complaint of left knee pain s/p fall, described as moderate, Quality is described as aching, Patient started experiencing this hour(s) (3) and it has been constant. Rest improves symptom(s), Movement worsens symptoms . Patient notes no other symptoms.. Patient did receive the following treatments prior to arrival, none Related Data Home Medications ?Medication ?Instructions ?Recorded ?Confirmed carvedilol 3.125 mg tablet 3.125 mg PO BID 04/24/22 08/03/25 losartan 50 mg tablet 50 mg PO DAILY 04/24/22 08/03/25 calcium carbonate (Oyster Shell 1.25 g PO DAILY #0 tabs 11/26/22 08/03/25 Calcium 500) cholecalciferol (vitamin D3) 25 5,000 unit PO DAILY #0 tabs 11/26/22 08/03/25 mcg (1,000 unit) tablet cyanocobalamin (vitamin B-12) 1,000 mcg PO DAILY 04/29/23 08/03/25 1,000 mcg tablet divalproex 500 mg tablet,delayed 500 mg PO QHS 04/29/23 08/03/25 release (Depakote) acetaminophen 500 mg tablet 500 mg PO Q6H PRN pain #60 tabs 09/10/23 08/03/25 Previous Rx's ?Medication ?Instructions ?Recorded calcium carbonate (Oyster Shell 1.25 g PO DAILY #0 tabs 11/26/22 Calcium 500) cholecalciferol (vitamin D3) 25 5,000 unit PO DAILY #0 tabs 11/26/22 mcg (1,000 unit) tablet acetaminophen 500 mg tablet 500 mg PO Q6H PRN pain #60 tabs 09/10/23 Allergies Allergy/AdvReac Type Severity Reaction Status Date / Time No Known Allergies Allergy Verified 09/20/23 09:35 General Stated Complaint: Fall/Non TraumaCriteria DEISY: 4 Review of Systems All systems reviewed & are unremarkable except as noted in HPI and below Constitutional Constitutional: Denies chills, Denies fever(s) and Denies weakness Cardiovascular Cardiovascular: Denies chest pain and Denies dyspnea Respiratory Respiratory: Denies cough and Denies dyspnea Gastrointestinal Gastrointestinal: Denies abdominal pain, Denies nausea and Denies vomiting Neurologic Neurologic: Denies weakness Psychiatric Psychiatric: Denies depression Exam Const General: no acute distress Orientation: alert HENW[place] Head: normal to inspection Ears: external ears normal General nose exam: external nose normal Mouth: moist mucous membranes Eyes General: appearance normal, both eyes and all related structures Neck Neck: normal visual inspection Resp Effort & Inspection: normal respiratory effort and able to speak in complete sentences Cardio Rate: regular rate GI Palpation: soft and nontender Neuro General: patient alert and patient oriented x3 Extrem General: full ROM, no cyanosis and no edema Psych Mental Status: mental status grossly normal Course Vital Signs Vital signs: Vital Signs Temperature 36.2 C L 08/03/25 09:26 Pulse 77 08/03/25 09:26 Respiratory Rate 16 08/03/25 09:26 Blood Pressure 143/64 H 08/03/25 09:26 Pulse Oximetry 95 08/03/25 09:26 Temperature 36.2 C L 08/03/25 09:26 Temperature Source Temporal Artery Scan 08/03/25 09:26 Pulse 77 08/03/25 09:26 Respiratory Rate 16 08/03/25 09:26 Blood Pressure 143/64 H 08/03/25 09:26 Pulse Oximetry 95 08/03/25 09:26 Oxygen Delivery Method Room Air 08/03/25 09:26 Oxygen Flow Rate 0 08/03/25 09:26 Pain Level 7 08/03/25 09:26 Medical Decision Making 74-year-old female with a history of hypertension, CKD, bipolar, comes in with left knee pain after falling. She says that she was getting out of bed when her legs gave out and she fell landing on her left knee. She also states she hit the back of her head. She did not have any loss of consciousness. No nausea or vomiting. She had an outpatient MRI scheduled when she went to an came here for evaluation of her knee. She says that she has had increased episodes of confusion recently. She denies any high fevers, chest pain, difficulty breathing. She has no headache currently and no midline C-spine T-spine or L-spine tenderness. She has no chest pain or abdominal pain. She has tenderness to the anterior knee. She is able to fully range it though with pain. She has intact distal sensation. She has no tenderness elsewhere in the leg. I will obtain x-rays of the knee to evaluate for fracture and check a CBC and CMP given her reports of episodes of confusion to evaluate for electrolyte abnormalities such as hyponatremia and to see if she could be anemic which could be contributing to her falls. She has had the MRI of her head so do not feel CT of her head is indicated given she has no headache and has no significant signs of trauma to the head. Patient's labs show no emergent findings and her x-ray also was negative on my read and radiologist read. Her MRIs that were done prior to coming here showed no significant findings or emergent findings. She is stable for discharge, she will follow-up with her PCP and return precautions give Differential Diagnosis Differential Diagnosis: strain,contusion,fracture,dementia Lab Data Lab results reviewed: Yes I reviewed the patient's lab results. PFSH All Active Problems (Updated 08/03/25 @ 11:31 by Andres Landers MD) AMS (altered mental status) (Acute) Contusion of knee, left (Acute) Iliotibial band friction syndrome of both knees (Acute) Pes anserinus bursitis of both knees (Acute) History of total right knee replacement (Acute) History of total left knee replacement (Acute) Carotid artery stenosis (Acute) Right carpal tunnel syndrome (Acute) s/p right ECTR DOS: 09/10/23 History of depression (Acute) CKD (chronic kidney disease), stage III (Acute) Hypertension (Chronic) Medical History Lymphedema Anxiety Female bladder prolapse Back pain Obesity Bipolar disorder Alopecia Arthritis History of uterine cancer Chronic knee pain Peripheral neuropathy Right wrist pain Surgical History Hx of bilateral hip replacements Social History Smoking/Tobacco Use Status: Never Smoking risk assessment performed?: Yes Alcohol Intake: never Drug use: Never Substance use type: does not use Housing: apartment Do you feel safe at home: Yes Do you feel safe in your relationship?: Yes
[2025-08-03] MEDS: Acetaminophen 500 MG TAB 1000 MG PO (09:50)
[2025-08-03 10:20] LABS: HCT 47.7 % (36.0-46.0); HGB 15.7 g/dL (11.2-15.7); MCH 30.9 pg (27.0-33.0); MCHC 32.9 % (32.0-36.0); MCV 94 fL (80-95); MPV 10.2 fL (8.0-11.0); Platelet Count 224 10^3/uL (130-400); RBC 5.08 10^6/uL (3.93-5.22); RDW 12.4 % (11.7-14.6); RDW-SD 43.5 fL; WBC 11.13 10^3/uL (4.4-10.8)
[2025-08-03 10:20] LABS: Glucose Negative (Negative)
[2025-08-03 10:41] LABS: Anion Gap 9.2 mmol/L (3-11); BUN 17 mg/dL (9-23); CO2 28.8 mmol/L (20.0-31.0); Calcium 9.5 mg/dL (8.3-10.6); Chloride 106 mmol/L (98-107); Glucose 100 mg/dL (74-106); Potassium 3.9 mmol/L (3.5-5.1); Sodium 144 mmol/L (136-145)
[2025-08-03 10:44] LABS: C & S Indicated? No; RBC Negative HPF (0-2)
== END 2025-08-03 11:51 | disposition home or self-care (01) ==
PROVIDERS: Emergency Provider Emergency Medicine; PCP Student in an Organized Health Care Education/Training Program
DX: S80.02XA Contusion of left knee, initial encounter (principal); R41.82 Altered mental status, unspecified; W19.XXXA Unspecified fall, initial encounter
CPT/HCPCS: 99283; 99284; 36415; 73562; 80048; 85027; 81003; 81015